=== PATIENT | female | born 1930 | race Caucasian/White ===

== ENCOUNTER → 2016-06-15 | Outpatient (CLI) | payer BC ==
[~2016-06-15] MED LIST: AMLO-110 PO; ASPI81TA28 PO; CMD1 PO; FRRS300 PO; FURO-85 PO; GEMF600T3 PO; GLC500 PO; INSDGI SC; LISI20TA PO; METO50TA7 PO; OXYC-57 PO; PRLSR20 PO; citracal PO; iron PO; vitamin d3 PO
[2016-06-15 10:50] LABS: HEMATOCRIT 26.1 % (37-47); MEAN CELL VOLUME 90.9 fL (80-100); MEAN CORPUSCULAR HEMOGLOBIN 30.3 pg (25-34); MEAN CORPUSCULAR HGB CONC 33.3 g/dl (32-36); MEAN PLATELET VOLUME 9.9 fL (7.4-10.4); PLATELET COUNT 269 K/uL (130-400); RED BLOOD COUNT 2.87 M/uL (4.2-5.4); WHITE BLOOD COUNT 7.08 K/uL (4.8-10.8)
[2016-06-15 11:14] LABS: URINE APPEARANCE CLEAR (CLEAR); URINE BILIRUBIN NEG (NEG); URINE COLOR YELLOW; URINE EPITHELIAL CELL AUTO >30 /lpf (0-5); URINE NITRITE NEG (NEG); URINE PH 5.5 (4.5-7.5); URINE SPECIFIC GRAVITY 1.016 (1.000-1.030); UROBILINOGEN NEG (NEG)
[2016-06-15 11:21] LABS: MANUAL MICROSCOPIC REQUIRED? NO; REVIEW REQ? YES
[2016-06-15 11:31] LABS: BLOOD UREA NITROGEN 47 mg/dl (7-18); BUN/CREATININE RATIO 19.7 (10-20); CARBON DIOXIDE 25 mmol/L (21-32); CHLORIDE 108 mmol/L (98-107); GLUCOSE 117 mg/dl (70-99); PHOSPHORUS 3.6 mg/dl (2.5-4.9); POTASSIUM 4.3 mmol/L (3.5-5.1); SODIUM 143 mmol/L (136-145)
[2016-06-15 11:40] LABS: URINE PROTIEN/CREAT RATIO 1.9 (0-0.2); URINE TOTAL PROTEIN 209.7 mg/dl (0-11.9)
== END | disposition home or self-care (01) ==
LOC: C.LAB1850 09:54
PROVIDERS: ATTEND Internal Medicine Nephrology
DX: I10 Essential (primary) hypertension (principal); R80.9 Proteinuria, unspecified; N18.4 Chronic kidney disease, stage 4 (severe); F64.9 Gender identity disorder, unspecified; N25.81 Secondary hyperparathyroidism of renal origin

== ENCOUNTER → 2016-07-16 | Outpatient (CLI) | payer BC ==
[2016-07-16 13:16] LABS: HEMATOCRIT 27.4 % (37-47); MEAN CELL VOLUME 88.4 fL (80-100); MEAN CORPUSCULAR HEMOGLOBIN 29.4 pg (25-34); MEAN CORPUSCULAR HGB CONC 33.2 g/dl (32-36); MEAN PLATELET VOLUME 9.7 fL (7.4-10.4); PLATELET COUNT 308 K/uL (130-400); WHITE BLOOD COUNT 5.81 K/uL (4.8-10.8)
[2016-07-16 14:08] LABS: FERRITIN 332.2 ng/ml (8.0-388.0)
--- NOTE | 2016-07-22 08:53 | CODING QUERY MEDICAL NECESSITY ---
SUPPORTING DIAGNOSIS NEEDED Dr. Worley, A supporting diagnosis is required for the test/procedure performed on this patient in order for us to be reimbursed by the patient's insurance. Please provide a supporting diagnosis for the following test/procedure listed below next to the test name along with your signature. *If there is no additional diagnosis for this patient that would support the following test/procedure please document that below next to the test/procedure. Test(s)/Procedure(s) that require a supporting diagnosis: * ([id number]) B12 VITAMIN LEVEL DIAGNOSIS: * ([id number]) FOLATE LEVEL DIAGNOSIS: DATE OF SERVICE: 07/16/16 Provider Signature: Date: Thank you Sal Hodges [facility] Information Management Once completed, please kindly fax back to [phone] For questions please call [phone]
== END | disposition home or self-care (01) ==
LOC: C.LAB1850 11:36
PROVIDERS: ATTEND Internal Medicine Nephrology
DX: I12.9 Hypertensive chronic kidney disease with stage 1 through stage 4 chronic kidney disease, or unspecified chronic kidney disease (principal); R80.9 Proteinuria, unspecified; N18.4 Chronic kidney disease, stage 4 (severe); D64.9 Anemia, unspecified; N25.81 Secondary hyperparathyroidism of renal origin

== ENCOUNTER → 2016-07-17 | Outpatient (CLI) | payer BC | END | disposition home or self-care (01) | LOC: C.LABSPEC 12:58 | PROVIDERS: ATTEND Internal Medicine Nephrology | DX: I12.9 Hypertensive chronic kidney disease with stage 1 through stage 4 chronic kidney disease, or unspecified chronic kidney disease (principal); R80.9 Proteinuria, unspecified; N18.4 Chronic kidney disease, stage 4 (severe); D64.9 Anemia, unspecified; N25.81 Secondary hyperparathyroidism of renal origin ==

== ENCOUNTER → 2016-07-30 | Outpatient (CLI) | payer BC ==
[2016-07-30 15:57] LABS: URINE APPEARANCE CLEAR (CLEAR); URINE BILIRUBIN NEG (NEG); URINE COLOR YELLOW; URINE EPITHELIAL CELL AUTO 20-30 /lpf (0-5); URINE NITRITE NEG (NEG); URINE PH 5.5 (4.5-7.5); URINE SPECIFIC GRAVITY 1.015 (1.000-1.030); UROBILINOGEN NEG (NEG)
[2016-07-30 16:02] LABS: MANUAL MICROSCOPIC REQUIRED? NO; REVIEW REQ? NO
== END | disposition home or self-care (01) ==
LOC: C.LAB1850 14:52
PROVIDERS: ATTEND Internal Medicine Nephrology
DX: N30.00 Acute cystitis without hematuria (principal)

== ENCOUNTER → 2016-10-29 | Outpatient (CLI) | payer BC ==
[2016-10-29 14:35] LABS: HEMATOCRIT 26.5 % (37-47); MEAN CORPUSCULAR HEMOGLOBIN 30.5 pg (25-34); MEAN CORPUSCULAR HGB CONC 32.5 g/dl (32-36); MEAN PLATELET VOLUME 9.9 fL (7.4-10.4); PLATELET COUNT 201 K/uL (130-400); RED BLOOD COUNT 2.82 M/uL (4.2-5.4); WHITE BLOOD COUNT 5.68 K/uL (4.8-10.8)
[2016-10-29 14:40] LABS: URINE APPEARANCE CLEAR (CLEAR); URINE BILIRUBIN NEG (NEG); URINE COLOR YELLOW; URINE EPITHELIAL CELL AUTO >30 /lpf (0-5); URINE NITRITE NEG (NEG); URINE PH 5.5 (4.5-7.5); UROBILINOGEN NEG (NEG); ZZUR CULT IF INDIC CLEAN CATCH YES
[2016-10-29 14:43] LABS: MANUAL MICROSCOPIC REQUIRED? NO; REVIEW REQ? YES
[2016-10-29 14:47] LABS: ALT/SGPT 19 U/L (12-78); AST/SGOT 16 U/L (15-37); BLOOD UREA NITROGEN 53 mg/dl (7-18); BUN/CREATININE RATIO 23.1 (10-20); CALCIUM 8.6 mg/dl (8.5-10.1); CARBON DIOXIDE 26 mmol/L (21-32); CHLORIDE 113 mmol/L (98-107); GLUCOSE 146 mg/dl (70-99); POTASSIUM 4.7 mmol/L (3.5-5.1); SODIUM 144 mmol/L (136-145)
[2016-10-29 14:50] LABS: ALB/GLOB RATIO 0.8 (0.9-2); ALKALINE PHOSPHATASE 95 U/L (45-117); FERRITIN 341.6 ng/ml (8.0-388.0); TOTAL IRON BINDING CAPACITY 208 mcg/dl (250-450)
[2016-10-29 14:54] LABS: URINE PROTIEN/CREAT RATIO 1.6 (0-0.2)
== END | disposition home or self-care (01) ==
LOC: C.LAB1850 12:33
PROVIDERS: ATTEND Internal Medicine Nephrology
DX: I12.9 Hypertensive chronic kidney disease with stage 1 through stage 4 chronic kidney disease, or unspecified chronic kidney disease (principal); N18.4 Chronic kidney disease, stage 4 (severe); R80.9 Proteinuria, unspecified; D64.9 Anemia, unspecified; N25.81 Secondary hyperparathyroidism of renal origin

== ENCOUNTER → 2017-01-22 | Outpatient (CLI) | payer BC ==
[2017-01-22 13:08] LABS: HEMATOCRIT 28.4 % (37-47); MEAN CELL VOLUME 91.9 fL (80-100); MEAN CORPUSCULAR HEMOGLOBIN 29.4 pg (25-34); MEAN PLATELET VOLUME 10.4 fL (7.4-10.4); PLATELET COUNT 216 K/uL (130-400); RED BLOOD COUNT 3.09 M/uL (4.2-5.4); WHITE BLOOD COUNT 5.85 K/uL (4.8-10.8)
[2017-01-22 13:34] LABS: BLOOD UREA NITROGEN 62 mg/dl (7-18); CALCIUM 8.7 mg/dl (8.5-10.1); CARBON DIOXIDE 28 mmol/L (21-32); CHLORIDE 107 mmol/L (98-107); GLUCOSE 145 mg/dl (70-99); POTASSIUM 4.4 mmol/L (3.5-5.1); SODIUM 141 mmol/L (136-145)
[2017-01-22 13:38] LABS: FERRITIN 333.1 ng/ml (8.0-388.0); PHOSPHORUS 4.3 mg/dl (2.5-4.9); TOTAL IRON BINDING CAPACITY 223 mcg/dl (250-450)
== END | disposition home or self-care (01) ==
LOC: C.LAB1850 12:02
PROVIDERS: ATTEND Internal Medicine Nephrology
DX: I12.9 Hypertensive chronic kidney disease with stage 1 through stage 4 chronic kidney disease, or unspecified chronic kidney disease (principal); R80.9 Proteinuria, unspecified; N18.4 Chronic kidney disease, stage 4 (severe); D64.9 Anemia, unspecified; N25.81 Secondary hyperparathyroidism of renal origin

== ENCOUNTER → 2017-04-30 | Outpatient (CLI) | payer BC ==
[2017-04-30 12:31] LABS: HEMATOCRIT 27.6 % (37-47); HEMOGLOBIN 9.2 g/dL (12.0-16.0); MEAN CELL VOLUME 91.4 fL (80-100); MEAN CORPUSCULAR HEMOGLOBIN 30.5 pg (25-34); MEAN CORPUSCULAR HGB CONC 33.3 g/dl (32-36); MEAN PLATELET VOLUME 10.3 fL (7.4-10.4); PLATELET COUNT 199 K/uL (130-400); RED CELL DISTRIBUTION WIDTH CV 14.1 % (11.5-14.5); RED CELL DISTRIBUTION WIDTH SD 46.5 fL (36.4-46.3); WHITE BLOOD COUNT 6.19 K/uL (4.8-10.8)
[2017-04-30 16:02] LABS: ALBUMIN 3.5 gm/dl (3.4-5.0); BLOOD UREA NITROGEN 79 mg/dl (7-18); CALCIUM 9.5 mg/dl (8.5-10.1); CARBON DIOXIDE 27 mmol/L (21-32); CREATININE 2.84 mg/dl (0.60-1.20); GLUCOSE 84 mg/dl (70-99); POTASSIUM 4.3 mmol/L (3.5-5.1); SODIUM 140 mmol/L (136-145)
[2017-04-30 16:08] LABS: PHOSPHORUS 4.5 mg/dl (2.5-4.9); TRANSFERRIN 181 mg/dl (200-360)
== END | disposition home or self-care (01) ==
LOC: C.LAB1850 11:03
PROVIDERS: ATTEND Internal Medicine Nephrology
DX: I10 Essential (primary) hypertension (principal); R80.9 Proteinuria, unspecified; N25.81 Secondary hyperparathyroidism of renal origin; D64.9 Anemia, unspecified

== ENCOUNTER → 2017-08-26 | Outpatient (CLI) | payer BC ==
[~2017-08-26] MED LIST changes: -METO50TA7 PO; +METO50TA8 PO
[2017-08-26 12:16] LABS: HEMOGLOBIN 9.1 g/dL (12.0-16.0); MEAN CELL VOLUME 92.1 fL (80-100); MEAN CORPUSCULAR HEMOGLOBIN 29.9 pg (25-34); MEAN CORPUSCULAR HGB CONC 32.5 g/dl (32-36); MEAN PLATELET VOLUME 9.6 fL (7.4-10.4); PLATELET COUNT 187 K/uL (130-400); RED CELL DISTRIBUTION WIDTH CV 13.8 % (11.5-14.5); RED CELL DISTRIBUTION WIDTH SD 45.9 fL (36.4-46.3); WHITE BLOOD COUNT 5.94 K/uL (4.8-10.8)
[2017-08-26 12:48] LABS: ALBUMIN 3.5 gm/dl (3.4-5.0); BLOOD UREA NITROGEN 53 mg/dl (7-18); CALCIUM 8.8 mg/dl (8.5-10.1); CARBON DIOXIDE 26 mmol/L (21-32); CREATININE 2.22 mg/dl (0.60-1.20); GLUCOSE 55 mg/dl (70-99); PHOSPHORUS 3.9 mg/dl (2.5-4.9); POTASSIUM 4.7 mmol/L (3.5-5.1); SODIUM 143 mmol/L (136-145); TRANSFERRIN 180 mg/dl (200-360)
== END | disposition home or self-care (01) ==
LOC: C.LAB1850 11:23
PROVIDERS: ATTEND Internal Medicine Nephrology
DX: I12.9 Hypertensive chronic kidney disease with stage 1 through stage 4 chronic kidney disease, or unspecified chronic kidney disease (principal); R80.9 Proteinuria, unspecified; N25.81 Secondary hyperparathyroidism of renal origin; D64.9 Anemia, unspecified; N18.4 Chronic kidney disease, stage 4 (severe)

== ENCOUNTER 2018-06-05 13:43 | Inpatient (IN) ==
[2018-06-05] MEDS ORDERED: MoRPHine SULFATE 4 MG/ML 1 ML CARP\\VIAL IV STA (14:52)
[2018-06-05] MEDS ORDERED: SODIUM CHLORIDE 0.9% 1000ML 1,000 ML IV SCH (15:00)
[2018-06-05 15:05] LABS: Hematocrit (blood only) 28.6 % (37-47); Hemoglobin 9.4 g/dL (12.0-16.0); Mean Corpuscular Hgb Conc 32.9 g/dL (32-36); Mean Corpuscular Volume 89.9 fL (80-100); Mean Platelet Volume 10.5 fL (7.4-10.4); Platelet Count 200 K/uL (130-400); RDW Coefficient of Variation 13.8 % (11.5-14.5); RDW Standard Deviation 45.3 fL (36.4-46.3); Red Blood Count 3.18 M/uL (4.2-5.4); White Blood Count 7.11 K/uL (4.8-10.8)
[2018-06-05 15:14] LABS: BUN Creatinine Ratio 30.3 (10-20); Creatinine Clr Calc Pharmacy 15.2 ml/min; Est GFR (African American) 18.8; Est GFR (Non-African American) 16.2; Potassium 4.2 mmol/L (3.5-5.1)
[2018-06-05 15:18] LABS: Partial Thromboplastin Ratio 0.9; Partial Thromboplastin Time 24.3 Seconds (21.0-31.0); Prothrombin Time 10.1 Seconds (9.0-12.0)
[2018-06-05 15:31] LABS: Basophils # (auto) 0.01 K/uL (0-0.2); Basophils % (auto) 0.1 %; Eosinophils # (auto) 0.15 K/uL (0-0.5); Eosinophils % (auto) 2.1 %; Immature Granulocytes # (auto) 0.04 K/uL (0.00-0.02); Immature Granulocytes % (auto) 0.6 %; Lymphocytes # (auto) 2.02 K/uL (1.2-3.4); Lymphocytes % (auto) 28.4 %; Monocytes # (auto) 0.29 K/uL (0.11-0.59); Monocytes % (auto) 4.1 %; Neutrophils % (auto) 64.7 %
[2018-06-05 15:33] LABS: Appearance Urine Clear (Clear); Bacteria Urine Automated Negative (Negative); Bilirubin Urine Negative (Negative); Blood Urine Trace (Negative); Cast Urine Automated 0 /lpf (0-5); Color Urine Yellow; Glucose Urine UA Negative (Negative); Ketones Urine Negative (Negative); Leukocyte Esterase Urine 1+ (Negative); Nitrite Urine Negative (Negative); Protein Urine 1+ (Negative); Urobilinogen Urine Negative (Negative)
--- NOTE | 2018-06-05 15:37 | XRay Report ---
XR hip RT 2-3V w pelvis CLINICAL HISTORY: 87 years-old Female presenting with s/p fall, right hip pain. TECHNIQUE: Single frontal view of the pelvis and frontal and crosstable lateral views of the right hi p were obtained. COMPARISON: None. FINDINGS: Degenerative changes of the lower lumbar spine. Sacroiliac joints, pubic symphysis, and hip joints co ngruent. Deformity of the intertrochanteric region of the right femur concerning for fracture. Crosst able lateral view best demonstrates cysts and also suggests underlying osseous lesion at this site. N o advanced degenerative change. Atherosclerosis. Osteopenia suspected. IMPRESSION: Intertrochanteric right femur fracture. May represent a pathologic fracture. Consider further evaluat ion with MRI of the right hip with contrast. Electronically signed by: Lamonte Roach M.D. 06/05/2018 3:36 PM
--- NOTE | 2018-06-05 15:49 | XRay Report ---
XR chest 1V portable CLINICAL HISTORY: 87 years-old Female presenting with s/p fall, pre op for likely hip frx. TECHNIQUE: Portable semiupright AP view of the chest was obtained. COMPARISON: . FINDINGS: Right subclavian pacer with leads to the right atrium and right ventricular apex. Atherosclerosis of aortic arch. Cardiac silhouette mildly enlarged. Coarsened lung markings. No focal opacity. No large effusion or pneumothorax. Degenerative changes of the thoracic spine. Severe degenerative changes of the left glenohumeral joint. Osteopenia suspected. Upper abdomen normal. IMPRESSION: 1. Cardiomegaly. No other convincing evidence of acute cardiopulmonary disease. 2. Osteopenia. Electronically signed by: Lamonte Roach M.D. 06/05/2018 3:48 PM
[2018-06-05] MEDS ORDERED: SOD PHOSPHATE/SOD BIPHOSPHATE ENEMA 132 ML BTL PR PRN (18:29)
[2018-06-05] MEDS ORDERED: BISACODYL 10 MG SUPP PR PRN (18:29)
[2018-06-05] MEDS ORDERED: ONDANSETRON INJ 2 MG/ML 2 ML VIAL IV PRN (18:29)
[2018-06-05] MEDS ORDERED: OXYCODONE HCL IR 5 MG TAB (IMMEDIATE RELEASE) PO PRN (18:29)
[2018-06-05] MEDS ORDERED: NALOXONE HCL 0.4 MG/1 ML VIAL/CARP IV PRN (18:29)
[2018-06-05] MEDS ORDERED: MAGNESIUM HYDROXIDE SUSP 30 ML UDC PO PRN (18:29)
[2018-06-05] MEDS ORDERED: MoRPHine SULFATE 4 MG/ML 1 ML CARP\\VIAL IV PRN (18:29)
--- NOTE | 2018-06-05 18:49 | History & Physical Report ---
Date of Service June 05, 2018 Assessment & Plan (1) Fracture of right hip: NPO after midnight geriatric hip fracture order set used consult Dr. Basilio for definitive treatment pain control with Oxycodone, Morphine (2) Fall: mechanical fall, no loss of consciousness PT/OT will be ordered after surgery (3) CKD (chronic kidney disease), stage IV: Cr at baseline of 2.[address] Worley electrolytes stable repeat BMP in the morning (4) Diabetes: cut dose of Lantus in half to 6 units in the morning Novolog SS (5) HTN (hypertension): continue Lopressor BID hold Norvasc and Lasix in the morning Hydralazine PRN for elevated pressures History of Present Illness Chief Complaint: I fell and broke my hip Primary Care Provider: Isaac Sharp MD 87 yo female with history of DM, CKD stage IV, pacemaker who presents to the ED after falling at home and suffering a right hip fracture. She says she was walking along a narrow sidewalk beside her house. She must have tripped and fell on her right side, but she cannot recall all the details of how she fell. She did not lose consciousness. She was down on the ground and had severe pain in right hip. No one was with her and she was calling out for help. She is unsure how long she was down on the ground. She was quite cold, only had a sweatshirt on because she was not planning on being outside for long. She was found by neighbors and EMS brought her to the ED. Labs showed normal CBC, CKD with Cr of 2.5, electrolytes stable, troponin negative. EKG was paced. CXR was normal. Right hip x-ray showed an intertrochanteric fracture on the right side. Ortho was contacted, they plan to fix the fracture tomorrow. Patient denies any chest pain or palpitations. She denies shortness of breath. Denies fever, chills, sweats, fatigue. She says she was feeling well prior to falling. Her only comlaints now are right hip pain and feeling cold from being outside for some time. Allergies Allergy/AdvReac Type Severity Reaction Status Date / Time latex AdvReac Mild Rash Verified 06/05/18 23:14 lovastatin AdvReac Mild "doesn't Verified 06/05/18 14:08 feel well" silicone AdvReac Mild Hives Verified 06/05/18 23:14 Home Medications Home Medications Medication Instructions Recorded Confirmed Type Vitamin C With Iron 1 tab PO DAILY 06/05/18 06/05/18 History amlodipine 5 mg PO QAM 06/05/18 06/05/18 History donepezil 5 mg PO HS 06/05/18 06/05/18 History furosemide [Lasix] 20 mg PO DAILY 06/05/18 06/05/18 History insulin glargine [Lantus U-100 12 unit SUBCUT QAM 06/05/18 06/05/18 History Insulin] metoprolol tartrate [Lopressor] 50 mg PO BID 06/05/18 06/05/18 History Past Med/Surg History Medical History Pacemaker (Chronic) CKD (chronic kidney disease) Dementia Diabetes H/O: hysterectomy Hypertension Surgical History H/O left knee surgery (Resolved) Family History Other No pertinent family history Social History Current Living Situation: Alone Other Information That Helps Us Care for You: No Feels Safe at Home: Yes Safety Concerns: Feels Safe At This Time Smoking Status: Never smoker Do You Dip or Chew Tobacco: No Hx Alcohol Use: No Hx Substance Use: No Beliefs That Will Affect Care: None Preferred Language: Belgian Communication Ability: Effective 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: No Review of Systems All systems reviewed & are unremarkable except as noted in HPI & below Constitutional: + fatigue and + weakness; no fever, no chills and no sweats Respiratory: no cough and no dyspnea Cardiovascular: no chest pain Genitourinary (Female): no dysuria and no difficulty urinating Musculoskeletal: + joint pain (severe right hip pain) and + limited range of motion (right hip joint); no back pain, no neck pain and no myalgia Physical Exam 2 Vital Signs (Past 24 Hours): Last Vital Signs Temp 36.5 C 06/05/18 13:49 Pulse 66 06/05/18 18:05 Resp 18 06/05/18 18:05 BP 191/60 H 06/05/18 18:05 Pulse Ox 98 06/05/18 18:05 Constitutional: WD/WN, vitals as above Eyes: PERRL, conjunctivae normal, anicteric sclerae ENMT: external ear and nose normal, oropharynx normal Neck: trachea midline, no thyromegaly Respiratory: normal respiratory effort, lungs clear to auscultation Cardiovascular: RRR, no murmur, no edema Vessels: normal peripheral pulses Extremities: normal capillary refill; no calf tenderness and no pedal edema Gastrointestinal (Abdomen): normal bowel sounds, soft, nontender, no hepatosplenomegaly Musculoskeletal: Head/Neck/Chest: normocephalic and head atraumatic Extremities: + limited ROM of extremities (right hip due to pain); + extremities abnormal to inspection (right leg short and externally rotated), no cyanosis and no clubbing Skin: no rashes, warm and dry Neurologic: patellar DTR's 2+ bilat, sensation intact and PERRL, EOMI, accommodation nl, no face palsy, no dysarthria Lymphatic: no cervical or axillary lymphadenopathy Results & Data Laboratory Results Laboratory Results - last 24 hr 06/05/18 06/05/18 06/05/18 14:00 14:00 14:00 WBC 7.11 RBC 3.18 L Hgb 9.4 L Hct 28.6 L MCV 89.9 MCH 29.6 MCHC 32.9 RDW Std Deviation 45.3 RDW Coeff of Kylah 13.8 Plt Count 200 MPV 10.5 H Immature Gran % (Auto) 0.6 Neut % (Auto) 64.7 Lymph % (Auto) 28.4 [place] % (Auto) 4.1 Eos % (Auto) 2.1 Baso % (Auto) 0.1 Immature Gran # (Auto) 0.04 H Neut # (Auto) 4.60 Lymph # (Auto) 2.02 [place] # (Auto) 0.29 Eos # (Auto) 0.15 Baso # (Auto) 0.01 PT 10.1 INR 1.0 APTT 24.3 PTT Ratio 0.9 Sodium 140 Potassium 4.2 Chloride 108 H Carbon Dioxide 24 Anion Gap 8.0 BUN 78 H Creatinine 2.56 H Est Cr Clr Drug Dosing 15.2 Est GFR ( Amer) 18.8 Est GFR (Non-Af Amer) 16.2 BUN/Creatinine Ratio 30.3 H Glucose 103 H POC Glucose Calcium 9.0 Urine Color Urine Appearance Urine pH Ur Specific [place] Urine Protein Urine Glucose (UA) Urine Ketones Urine Blood Urine Nitrite Urine Bilirubin Urine Urobilinogen Ur Leukocyte Esterase Urine WBC (Auto) Urine RBC (Auto) U Hyaline Cast (Auto) U Epithel Cells (Auto) Urine Bacteria (Auto) Blood Type Antibody Screen 06/05/18 06/05/18 06/05/18 14:00 15:32 19:05 WBC RBC Hgb Hct MCV MCH MCHC RDW Std Deviation RDW Coeff of Kylah Plt Count MPV Immature Gran % (Auto) Neut % (Auto) Lymph % (Auto) [place] % (Auto) Eos % (Auto) Baso % (Auto) Immature Gran # (Auto) Neut # (Auto) Lymph # (Auto) [place] # (Auto) Eos # (Auto) Baso # (Auto) PT INR APTT PTT Ratio Sodium Potassium Chloride Carbon Dioxide Anion Gap BUN Creatinine Est Cr Clr Drug Dosing Est GFR ( Amer) Est GFR (Non-Af Amer) BUN/Creatinine Ratio Glucose POC Glucose 138 H Calcium Urine Color Yellow Urine Appearance Clear Urine pH 6.0 Ur Specific [place] 1.010 Urine Protein 1+ H Urine Glucose (UA) Negative Urine Ketones Negative Urine Blood Trace H Urine Nitrite Negative Urine Bilirubin Negative Urine Urobilinogen Negative Ur Leukocyte Esterase 1+ H Urine WBC (Auto) 1-5 Urine RBC (Auto) 10-30 H U Hyaline Cast (Auto) 0 U Epithel Cells (Auto) 10-20 H Urine Bacteria (Auto) Negative Blood Type O Positive Antibody Screen NEGATIVE 06/05/18 20:39 WBC RBC Hgb Hct MCV MCH MCHC RDW Std Deviation RDW Coeff of Kylah Plt Count MPV Immature Gran % (Auto) Neut % (Auto) Lymph % (Auto) [place] % (Auto) Eos % (Auto) Baso % (Auto) Immature Gran # (Auto) Neut # (Auto) Lymph # (Auto) [place] # (Auto) Eos # (Auto) Baso # (Auto) PT INR APTT PTT Ratio Sodium Potassium Chloride Carbon Dioxide Anion Gap BUN Creatinine Est Cr Clr Drug Dosing Est GFR ( Amer) Est GFR (Non-Af Amer) BUN/Creatinine Ratio Glucose POC Glucose 150 H Calcium Urine Color Urine Appearance Urine pH Ur Specific [place] Urine Protein Urine Glucose (UA) Urine Ketones Urine Blood Urine Nitrite Urine Bilirubin Urine Urobilinogen Ur Leukocyte Esterase Urine WBC (Auto) Urine RBC (Auto) U Hyaline Cast (Auto) U Epithel Cells (Auto) Urine Bacteria (Auto) Blood Type Antibody Screen Diagnostic Findings Right hip x-ray: Intertrochanteric right femur fracture. May represent a pathologic fracture. Consider further evaluation with MRI of the right hip with contrast. Chest x-ray: IMPRESSION: 1. Cardiomegaly. No other convincing evidence of acute cardiopulmonary disease. 2. Osteopenia. Code Status & VTE Plan Code Status full code VTE Prophylaxis Plan VTE Prophylaxis will be ordered: Yes _ (1) Fracture of right hip Encounter type: initial encounter Fracture healing: Fracture type: closed Open fracture type: Qualified Code(s): S72.001A - Fracture of unspecified part of neck of right femur, initial encounter for closed fracture (2) Fall Encounter type: initial encounter Qualified Code(s): W19.XXXA - Unspecified fall, initial encounter
--- NOTE | 2018-06-05 19:22 | Emergency Department Note ---
Entered by Cristin Garza acting as a scribe for Jacky Contreras MD History of Present Illness General Chief complaint: Hip Pain Time Seen by Provider: 06/05/18 14:27 Source: patient History of Present Illness Onset (ago): hour(s) (this afternoon) Location: right (hip) Pain Consistency: + other (after falling from standing) Maximum Pain Intensity: 6 Quality: + other (right hip pain) Associated symptoms: + other (Negative hitting her head, neck pain, LOC, right shoulder pain, right arm pain, hx of seizures) Treatments prior to arrival: none The patient is a 87 year old white female w/ PMHx of a pacemaker who presents to the ED w/ CC of right hip pain after a fall beginning this afternoon. She reports she was walking on the sidewalk when she got too close to the edge and landed on her back and hurt her right hip. Pt denies hitting her head, neck pain , LOC, right shoulder pain, right arm pain, hx of seizures. She did not take any medications for pain prior to coming to the ED. Pt regularly takes baby aspirin. Home Medications Home Medications Medication Instructions Recorded Confirmed Type Vitamin C With Iron 1 tab PO DAILY 06/05/18 06/05/18 History amlodipine 5 mg PO QAM 06/05/18 06/05/18 History donepezil 5 mg PO HS 06/05/18 06/05/18 History furosemide [Lasix] 20 mg PO DAILY 06/05/18 06/05/18 History insulin glargine [Lantus U-100 12 unit SUBCUT QAM 06/05/18 06/05/18 History Insulin] metoprolol tartrate [Lopressor] 50 mg PO BID 06/05/18 06/05/18 History Allergies Allergy/AdvReac Type Severity Reaction Status Date / Time lovastatin AdvReac Mild "doesn't Verified 06/05/18 14:08 feel well" Past Med/Surg History Medical History Pacemaker (Chronic) CKD (chronic kidney disease) Dementia Diabetes Hypertension Surgical History H/O left knee surgery (Resolved) Family History Other No pertinent family history Social History Feels Safe at Home: Yes Smoking Status: Never smoker Preferred Language: Malagasy Review of Systems See HPI for pertinent positives & negatives. and A total of 10 systems reviewed and were otherwise negative Physical Exam Vital Signs Vital Signs - 24 hr 06/05/18 13:49 06/05/18 14:41 06/05/18 15:48 Temperature 36.5 C Temperature Source Oral Sepsis Recent Fever Within 48 Hours No Sepsis Action Taken by Nursing No Action Required Pulse Rate 63 Pulse Rate [Left] 65 68 Pulse Strength Normal Respiratory Rate 16 16 18 Respiratory Effort / Characteristics Non-Labored Non-Labored Spontaneous Respiratory Depth Normal Respiratory Pattern Regular Blood Pressure 216/83 H Blood Pressure [Right Arm] 192/82 H 174/62 H Blood Pressure Mean 127 Blood Pressure Mean [Right Arm] 118 99 Blood Pressure Position Lying Blood Pressure Position [Right Arm] Lying Pulse Oximetry 99 96 97 Oxygen Delivery Method Room Air Room Air Room Air 06/05/18 17:14 06/05/18 18:05 Temperature Temperature Source Sepsis Recent Fever Within 48 Hours Sepsis Action Taken by Nursing Pulse Rate Pulse Rate [Left] 65 66 Pulse Strength Respiratory Rate 18 18 Respiratory Effort / Characteristics Respiratory Depth Respiratory Pattern Blood Pressure Blood Pressure [Right Arm] 190/76 H 191/60 H Blood Pressure Mean Blood Pressure Mean [Right Arm] 114 103 Blood Pressure Position Blood Pressure Position [Right Arm] Pulse Oximetry 99 98 Oxygen Delivery Method Room Air Room Air GENERAL: Well appearing, well nourished, NAD, non-toxic. Wearing glasses. HEAD: No obvious deformity or pain. EYE EXAM: Normal conjunctiva. PERRL, no anisocoria and EOM's grossly intact w/o pain OROPHARYNX: Moist MM. NECK: Supple, no nuchal rigidity, no adenopathy, non-tender. No signs of meningismus. No midline C spine TTP. LUNGS: Clear to auscultation. Normal chest wall mechanics. HEART: NSR, no MRG CHEST: No chest wall TTP. ABDOMEN: Abdomen soft, non-tender, normo-active bowel sounds, no masses, no rebound or guarding. BACK: No CVA TTP SKIN: No rashes and no bruising. UPPER EXTREMITIES: Upper extremities are grossly normal. No TTP. LOWER EXTREMITIES: No pitting edema. No calf pain. RLE appears shortened and externally rotated. Pain over right hip. RLE has SILT and well perfused, can move ankle and toes w/o issue. LLE w/ well healed incisional scar over L knee. NEURO EXAM: Alert and follows commands, decreased RLE movement at hip 2/2 to pain. Moves b/l UEs and LLE w/o issue. Speech clear. Course 1437: Past medical records reviewed. The patient was evaluated in room A3, and a complete history and physical examination were performed. 1625: I reviewed the patient's case with Christie Medrano. He recommends the patient be further evaluated. 1638: I reviewed the patient's case with Edel Mahoney Hospitalist. He will evaluate the patient for further management. Consultations Consultation #1: I reviewed the patient's case with Christie Medrano. He recommends the patient be further evaluated. Time: 16:25 Consultation #2: I reviewed the patient's case with Edel Mahoney [facility]ist. He will evaluate the patient for further management. Time: 16:28 Administered Medications Sodium Chloride (Nss 1000ml) 1,000 mls @ 75 mls/hr IV .[id number] BRUCE Stop: 06/06/18 04:19 Last Infusion: 06/05/18 18:08 Dose: Admin: 06/05/18 15:07 Dose: 75 mls/hr Discontinued Medications Morphine Sulfate (Morphine Sulfate) 4 mg IV NOW STA Stop: 06/05/18 14:53 Last Admin: 06/05/18 15:07 Dose: 4 mg Medical Decision Making Medical Records Attestation: I reviewed the patient's medical records. Home Medications Current Medication List: was personally reviewed by me Laboratory Data Attestation: I reviewed the patient's lab results. Result diagrams: 06/05/18 14:00 06/05/18 14:00 Lab Results 06/05/18 06/05/18 06/05/18 Range/Units 14:00 14:00 14:00 WBC 7.11 (4.8-10.8) K/uL RBC 3.18 L (4.2-5.4) M/uL Hgb 9.4 L (12.0-16.0) g/dL Hct 28.6 L (37-47) % MCV 89.9 (80-100) fL MCH 29.6 (25-34) pg MCHC 32.9 (32-36) g/dL RDW Std Deviation 45.3 (36.4-46.3) fL RDW Coeff of [place] 13.8 (11.5-14.5) % Plt Count 200 (130-400) K/uL MPV 10.5 H (7.4-10.4) fL Immature Gran % (Auto) 0.6 % Neut % (Auto) 64.7 % Lymph % (Auto) 28.4 % [place] % (Auto) 4.1 % Eos % (Auto) 2.1 % Baso % (Auto) 0.1 % Immature Gran # (Auto) 0.04 H (0.00-0.02) K/uL Neut # (Auto) 4.60 (1.4-6.5) K/uL Lymph # (Auto) 2.02 (1.2-3.4) K/uL [place] # (Auto) 0.29 (0.11-0.59) K/uL Eos # (Auto) 0.15 (0-0.5) K/uL Baso # (Auto) 0.01 (0-0.2) K/uL PT 10.1 (9.0-12.0) Seconds INR 1.0 (0.9-1.1) APTT 24.3 (21.0-31.0) Seconds PTT Ratio 0.9 Sodium 140 (136-145) mmol/L Potassium 4.2 (3.5-5.1) mmol/L Chloride 108 H (98-107) mmol/L Carbon Dioxide 24 (21-32) mmol/L Anion Gap 8.0 (3-11) BUN 78 H (7-18) mg/dl Creatinine 2.56 H (0.6-1.2) mg/dl Est Cr Clr Drug Dosing 15.2 ml/min Est GFR ( Amer) 18.8 Est GFR (Non-Af Amer) 16.2 BUN/Creatinine Ratio 30.3 H (10-20) Glucose 103 H (70-99) mg/dl Calcium 9.0 (8.5-10.1) mg/dl Urine Color Urine Appearance (Clear) Urine pH (4.5-7.5) Ur Specific [place] (1.000-1.030) Urine Protein (Negative) Urine Glucose (UA) (Negative) Urine Ketones (Negative) Urine Blood (Negative) Urine Nitrite (Negative) Urine Bilirubin (Negative) Urine Urobilinogen (Negative) Ur Leukocyte Esterase (Negative) Urine WBC (Auto) (0-5) /hpf Urine RBC (Auto) (0-4) /hpf U Hyaline Cast (Auto) (0-5) /lpf U Epithel Cells (Auto) (0-5) /lpf Urine Bacteria (Auto) (Negative) Blood Type Antibody Screen 06/05/18 06/05/18 Range/Units 14:00 15:32 WBC (4.8-10.8) K/uL RBC (4.2-5.4) M/uL Hgb (12.0-16.0) g/dL Hct (37-47) % MCV (80-100) fL MCH (25-34) pg MCHC (32-36) g/dL RDW Std Deviation (36.4-46.3) fL RDW Coeff of [place] (11.5-14.5) % Plt Count (130-400) K/uL MPV (7.4-10.4) fL Immature Gran % (Auto) % Neut % (Auto) % Lymph % (Auto) % [place] % (Auto) % Eos % (Auto) % Baso % (Auto) % Immature Gran # (Auto) (0.00-0.02) K/uL Neut # (Auto) (1.4-6.5) K/uL Lymph # (Auto) (1.2-3.4) K/uL [place] # (Auto) (0.11-0.59) K/uL Eos # (Auto) (0-0.5) K/uL Baso # (Auto) (0-0.2) K/uL PT (9.0-12.0) Seconds INR (0.9-1.1) APTT (21.0-31.0) Seconds PTT Ratio Sodium (136-145) mmol/L Potassium (3.5-5.1) mmol/L Chloride (98-107) mmol/L Carbon Dioxide (21-32) mmol/L Anion Gap (3-11) BUN (7-18) mg/dl Creatinine (0.6-1.2) mg/dl Est Cr Clr Drug Dosing ml/min Est GFR ( Amer) Est GFR (Non-Af Amer) BUN/Creatinine Ratio (10-20) Glucose (70-99) mg/dl Calcium (8.5-10.1) mg/dl Urine Color Yellow Urine Appearance Clear (Clear) Urine pH 6.0 (4.5-7.5) Ur Specific [place] 1.010 (1.000-1.030) Urine Protein 1+ H (Negative) Urine Glucose (UA) Negative (Negative) Urine Ketones Negative (Negative) Urine Blood Trace H (Negative) Urine Nitrite Negative (Negative) Urine Bilirubin Negative (Negative) Urine Urobilinogen Negative (Negative) Ur Leukocyte Esterase 1+ H (Negative) Urine WBC (Auto) 1-5 (0-5) /hpf Urine RBC (Auto) 10-30 H (0-4) /hpf U Hyaline Cast (Auto) 0 (0-5) /lpf U Epithel Cells (Auto) 10-20 H (0-5) /lpf Urine Bacteria (Auto) Negative (Negative) Blood Type O Positive Antibody Screen NEGATIVE Imaging Data Radiologist's Impression: Radiology results as stated below per my review and the radiologist's interpretation: XR chest 1V portable CLINICAL HISTORY: 87 years-old Female presenting with s/p fall, pre op for likely hip frx. TECHNIQUE: Portable semiupright AP view of the chest was obtained. COMPARISON: . FINDINGS: Right subclavian pacer with leads to the right atrium and right ventricular apex. Atherosclerosis of aortic arch. Cardiac silhouette mildly enlarged. Coarsened lung markings. No focal opacity. No large effusion or pneumothorax. Degenerative changes of the thoracic spine. Severe degenerative changes of the left glenohumeral joint. Osteopenia suspected. Upper abdomen normal. IMPRESSION: 1. Cardiomegaly. No other convincing evidence of acute cardiopulmonary disease. 2. Osteopenia. Electronically signed by: Lamonte Roach M.D. 06/05/2018 3:48 PM XR hip RT 2-3V w pelvis CLINICAL HISTORY: 87 years-old Female presenting with s/p fall, right hip pain. TECHNIQUE: Single frontal view of the pelvis and frontal and crosstable lateral views of the right hip were obtained. COMPARISON: None. FINDINGS: Degenerative changes of the lower lumbar spine. Sacroiliac joints, pubic symphysis, and hip joints congruent. Deformity of the intertrochanteric region of the right femur concerning for fracture. Crosstable lateral view best demonstrates cysts and also suggests underlying osseous lesion at this site. No advanced degenerative change. Atherosclerosis. Osteopenia suspected. IMPRESSION: Intertrochanteric right femur fracture. May represent a pathologic fracture. Consider further evaluation with MRI of the right hip with contrast. Electronically signed by: Lamonte Roach M.D. 06/05/2018 3:36 PM ECG Data Attestation: I personally reviewed and interpreted this ECG as follows: Indication: other (right hip pain) Rate (beats per minute): ventricular rate, 60 Rhythm: other (AV dual paced rhythm) Findings: + LBBB and + T-wave inversion (anterior) Blood Pressure Blood Pressure Findings: Elevated blood pressure Blood Pressure Disposition: further management by hospitalist [facility] Narrative Prior records/ancillary studies reviewed. Triage nursing notes reviewed. The patient is a 87 year old white female w/ PMHx of a pacemaker who presents to the ED w/ CC of right hip pain after a fall beginning this afternoon. Differential diagnoses include but are not limited to: fracture, dislocation, contusion, strain, ligamentous injury, tendon rupture, and septic joint. Patient was seen and evaluated the bedside. The patient does have a known history of CKD as well as hypertension and diabetes. Patient also does have a history of dementia. The patient did suffer from a mechanical fall earlier today. Patient does have a right lower extremity that does appear shortened. The patient does have some right-sided hip pain. There is no evidence of laceration. This does appear to be a closed injury. Patient did a blood work completed along with hip films. The patient does have a right intertrochanteric fracture. I did discuss the results with the on-call orthopedist. The patient was subsequently discussed with the medicine service. The patient was to be admitted to the medicine service. I did discuss the results with the patient and the patient's family. The patient was admitted to the medicine service. Impression & Plan Fracture of right hip, Fall, CKD (chronic kidney disease), stage IV Discharge Plan Visit Data *Final* Discharge Date/Time: 06/05/18 18:00 Chief Complaint: Hip Pain ED Provider: Jacky Contreras Discharge Problem: Fracture of right hip, Fall, CKD (chronic kidney disease), stage IV Patient Disposition: Admitted As Inpatient Discharge Instructions Interventions: ED Discharge Assessment Last Done: 06/05/18 18:00 The scribe's documentation has been prepared under my direction and personally reviewed by me in its entirety. I confirm that the note above accurately reflects all work, treatment, procedures, and medical decision making performed by me.
[2018-06-05] MEDS: LACTATED RINGER'S 1,000 ML IV SCH (20:55)
[2018-06-05] MEDS: METOPROLOL TARTRATE 50 MG TAB PO SCH (20:58)
[2018-06-05] MEDS: DONEPEZIL HCL 5 MG TAB PO SCH (20:58)
[2018-06-05] MEDS: DOCUSATE SODIUM/SENNA 50/8.6MG TAB PO SCH (20:59)
--- NOTE | 2018-06-05 21:58 | Anesthesiology Consultation ---
Date of Service June 05, 2018 Assessment & Plan (1) Encounter for pre-operative examination: Chart Review Chart Review: Pending: Refer to Additional Notes / Consult section and Patient NOT seen in Pre Admission Testing Patient has diagnosis of dementia but was able to answer questions regarding her medical history. She was alert and oriented to person, place and time. She understands she has a broken right hip and that it is to be repaired tomorrow by orthopedics. I felt it was appropriate to have patient sign for her own consent. GETA vs SAB with MAC was discussed and questions were answerd. RN was present for anesthesia discussion. Patient's family members will be present tomorrow for surgery. Patient was unsure why she had her pacemaker placed. Of note, on physical exam I auscultated what appeared to be a systolic ejection murmur. Patient does deny any recent chest pains/pressures/SOB/syncope or lightheadedness. She was ambulatory prior to the mechanical fall on an icy sidewalk. Currently awaiting a call back from the attending hospitalist, Dr. Sharp, to suggest cardiology involvement for information regarding last pacemaker interrogation and possible echo if one was not done recently to see if she has any valvular heart disease to correspond with murmur heard. Patient is not on a blood thinner (per her report) so would be a candidate for SAB if she does not have significant valvular disease. Patient had all questions answered prior to leaving her room. Consults Requested cardiac History Height/Weight Height: 5 ft 2 in Weight: 62.1 kg Allergies Allergy/AdvReac Type Severity Reaction Status Date / Time lovastatin AdvReac Mild "doesn't Verified 06/05/18 14:08 feel well" Medications Home Medications Medication Instructions Recorded Confirmed Last Taken Vitamin C With Iron 1 tab PO DAILY 06/05/18 06/05/18 Unknown amlodipine 5 mg PO QAM 06/05/18 06/05/18 Unknown donepezil 5 mg PO HS 06/05/18 06/05/18 Unknown furosemide [Lasix] 20 mg PO DAILY 06/05/18 06/05/18 Unknown insulin glargine [Lantus U-100 12 unit SUBCUT QAM 06/05/18 06/05/18 Unknown Insulin] metoprolol tartrate [Lopressor] 50 mg PO BID 06/05/18 06/05/18 Unknown Active Medications Generic Name Dose Route Start Last Admin Trade Name Freq PRN Reason Stop Dose Admin Donepezil HCl 5 mg 06/05/18 21:00 06/05/18 20:58 Aricept PO 07/05/18 20:59 5 mg HS BRUCE Administration Sodium Chloride 1,000 mls @ 75 mls/hr 06/05/18 15:00 06/05/18 18:08 Nss 1000ml IV 06/06/18 04:19 75 mls/hr .[id number] BRUCE Infusion Lactated Ringer's 1,000 mls @ 80 mls/hr 06/05/18 18:29 06/05/18 20:55 Lr IV 07/05/18 18:28 80 mls/hr .[id number] BRUCE Administration Metoprolol Tartrate 50 mg 06/05/18 21:00 06/05/18 20:58 Lopressor PO 07/05/18 20:59 50 mg BID BRUCE Administration Senna/Docusate Sodium 2 tab 06/05/18 21:00 06/05/18 20:59 Senokot S PO 07/05/18 20:59 2 tab HS BRUCE Administration Past Medical History Medical History Pacemaker (Chronic) CKD (chronic kidney disease) Dementia Diabetes H/O: hysterectomy Hypertension Past Family History Family History Other No pertinent family history Past Surgical History Surgical History H/O left knee surgery (Resolved) Past Anesthesia History No Hx of Anesthesia Complications and No Family Hx of Anesthesia Complications History of PONV No Motion Sickness Screening History of Motion Sickness: No Social History Smoking Status: Never smoker Do You Dip or Chew Tobacco: No Hx Alcohol Use: No Hx Substance Use: No Exercise / Class Metabolic Activity II 4-5 Yardwork/Stairs/Walk up hill (prior to injury. ) Physical Exam Vital Signs Last Vital Signs Temp 37.3 C 06/05/18 19:08 Pulse 72 06/05/18 21:48 Resp 18 06/05/18 19:08 BP 160/56 H 06/05/18 21:48 Pulse Ox 95 06/05/18 19:08 ENMT Mouth: + dentures Thyromental Distance: < 3.5 Finger Breadths Mallampati Class: II Neck normal visual inspection and + shortened thyromental distance Respiratory normal respiratory effort Cardiovascular Rate/Rhythm: regular rate and regular rhythm Heart Sounds: + murmur (ESCOBAR heart at right and left USB. ) Musculoskeletal Spine: + limited cervical ROM; no pain with cervical ROM Testing Electrocardiogram Date: 06/05/18 HR 60 Poor data quality, interpretation may be adversely affected AV dual-paced rhythm Abnormal ECG When compared with ECG of 28-SEP-2007 09:34, Electronic ventricular pacemaker has replaced Sinus rhythm Chest X-Ray Date: 06/05/18 Right subclavian pacer with leads to the right atrium and right ventricular apex. Atherosclerosis of aortic arch. Cardiac silhouette mildly enlarged. Coarsened lung markings. No focal opacity. No large effusion or pneumothorax. Degenerative changes of the thoracic spine. Severe degenerative changes of the left glenohumeral joint. Osteopenia suspected. Upper abdomen normal. IMPRESSION: 1. Cardiomegaly. No other convincing evidence of acute cardiopulmonary disease. 2. Osteopenia. Laboratory Results 06/05/18 14:00 06/05/18 14:00 Blood Type O Positive 06/05/18 15:32 Antibody Screen NEGATIVE 06/05/18 15:32 PT 10.1 Seconds (9.0-12.0) 06/05/18 14:00 INR 1.0 (0.9-1.1) 06/05/18 14:00 APTT 24.3 Seconds (21.0-31.0) 06/05/18 14:00 Urine Color Yellow 06/05/18 14:00 Urine Appearance Clear (Clear) 06/05/18 14:00 Urine pH 6.0 (4.5-7.5) 06/05/18 14:00 Ur Specific [place] 1.010 (1.000-1.030) 06/05/18 14:00 Urine Protein 1+ (Negative) H 06/05/18 14:00 Urine Glucose (UA) Negative (Negative) 06/05/18 14:00 Urine Ketones Negative (Negative) 06/05/18 14:00 Urine Nitrite Negative (Negative) 06/05/18 14:00 Ur Leukocyte Esterase 1+ (Negative) H 06/05/18 14:00 Urine WBC (Auto) 1-5 /hpf (0-5) 06/05/18 14:00 Urine RBC (Auto) 10-30 /hpf (0-4) H 06/05/18 14:00 U Hyaline Cast (Auto) 0 /lpf (0-5) 06/05/18 14:00 U Epithel Cells (Auto) 10-20 /lpf (0-5) H 06/05/18 14:00 Urine Bacteria (Auto) Negative (Negative) 06/05/18 14:00 06/05/18 06/05/18 20:39 19:05 POC Glucose 150 H 138 H
[2018-06-06] MEDS ORDERED: CEFAZOLIN 2000MG 2,000 MG/15 ML SYR IV SCH (06:00)
[2018-06-06 07:15] LABS: Basophils # (auto) 0.01 K/uL (0-0.2); Basophils % (auto) 0.1 %; Eosinophils # (auto) 0.01 K/uL (0-0.5); Eosinophils % (auto) 0.1 %; Hematocrit (blood only) 23.6 % (37-47); Hemoglobin 7.9 g/dL (12.0-16.0); Immature Granulocytes # (auto) 0.02 K/uL (0.00-0.02); Immature Granulocytes % (auto) 0.3 %; Lymphocytes # (auto) 1.37 K/uL (1.2-3.4); Lymphocytes % (auto) 18.9 %; Mean Corpuscular Hgb Conc 33.5 g/dL (32-36); Mean Corpuscular Volume 91.5 fL (80-100); Mean Platelet Volume 9.8 fL (7.4-10.4); Monocytes # (auto) 0.64 K/uL (0.11-0.59); Monocytes % (auto) 8.8 %; Neutrophils # (auto) 5.19 K/uL (1.4-6.5); Neutrophils % (auto) 71.8 %; Platelet Count 157 K/uL (130-400); RDW Coefficient of Variation 13.7 % (11.5-14.5); RDW Standard Deviation 45.5 fL (36.4-46.3); Red Blood Count 2.58 M/uL (4.2-5.4); White Blood Count 7.24 K/uL (4.8-10.8)
[2018-06-06 07:48] LABS: BUN Creatinine Ratio 32.9 (10-20); Calcium 8.7 mg/dl (8.5-10.1); Creatinine Clr Calc Pharmacy 14.8 ml/min; Est GFR (African American) 21.2; Est GFR (Non-African American) 18.3
[2018-06-06 07:50] LABS: RBC Morphology Unremarkable
[2018-06-06] MEDS ORDERED: LANTUS PER UNIT CHARGE SQ SCH (09:00)
[2018-06-06] MEDS ORDERED: SODIUM CHLORIDE 0.9% 250 ML IV PRN ×2 (09:18→14:43)
[2018-06-06] MEDS: METOPROLOL TARTRATE 50 MG TAB PO SCH ×2 (09:53→20:42)
[2018-06-06] MEDS: LACTATED RINGER'S 1,000 ML IV SCH ×2 (09:53→23:40)
[2018-06-06] MEDS: INSULIN GLARGINE SOLOSTAR 100 UNITS/ML 3 ML PEN SQ SCH (10:18)
[2018-06-06] MEDS: HydrALAZINE HCL 20 MG/ML VIAL IV PRN (10:20)
--- NOTE | 2018-06-06 13:00 | XRay Report ---
XR femur RT 2V routine CLINICAL HISTORY: hip fracture, bone lesion COMPARISON: 06/05/2018 DISCUSSION: There is an intertrochanteric right hip fracture with varus angulation. There is no dislo cation. There are osteophytic changes present at the knee. There are vascular calcifications present. Is difficult to exclude a pathologic lesion (as was previously queried) at the site of fracture, but the appearance may simply be secondary to a fractured osteoporotic bone. Remainder the femoral shaft reveals no suspicious lytic lesions. IMPRESSION: Intertrochanteric right hip fracture with resultant varus angulation Electronically signed by: Sha Marshall M.D. 06/06/2018 12:59 PM
--- NOTE | 2018-06-06 14:36 | Orthopedic Consultation ---
Date of Consultation June 06, 2018 Assessment & Plan (1) Fracture of right hip: Spoke with the patient and the family at length today. There were a lot of family members present at the bedside today. Patient is going to have a long -leg x-ray of her right femur and an MRI of her right femur for questionable pathological concerns. The plan is to have surgery tomorrow with 1 of my associates the plan will be to do an IM rodding of the right hip. The surgery was explained to the patient in detail. And patient will need to sign a consent tomorrow morning as we cannot find paperwork to do the consent. Patient and family understand and despite the potential complications want to proceed with surgery. History of Present Illness Reason for Consultation: Right hip pain Attending Physician: Amandeep Sharp, History of Present Illness Pleasant female who unfortunately taken a fall and sustained a right intertrochanteric hip fracture. Patient actually is in fairly good condition not having much pain pain well controlled and sitting in bed comfortably. Patient has a history of diabetes, no history of DVTs, no artery vein problems in the past no history of cancer does have a history of heart disease with a pacemaker in place Allergies Allergy/AdvReac Type Severity Reaction Status Date / Time latex Allergy Mild Rash Verified 06/06/18 10:22 lovastatin AdvReac Mild "doesn't Verified 06/05/18 14:08 feel well" silicone AdvReac Mild Hives Verified 06/05/18 23:14 Home Medications Home Medications Medication Instructions Recorded Confirmed Type Vitamin C With Iron 1 tab PO DAILY 06/05/18 06/05/18 History amlodipine 5 mg PO QAM 06/05/18 06/05/18 History donepezil 5 mg PO HS 06/05/18 06/05/18 History furosemide [Lasix] 20 mg PO DAILY 06/05/18 06/05/18 History insulin glargine [Lantus U-100 12 unit SUBCUT QAM 06/05/18 06/05/18 History Insulin] metoprolol tartrate [Lopressor] 50 mg PO BID 06/05/18 06/05/18 History Patient History Medical History Pacemaker (Chronic) CKD (chronic kidney disease) Dementia Diabetes H/O: hysterectomy Hypertension Surgical History H/O left knee surgery (Resolved) Family History Other No pertinent family history Social History Current Living Situation: Alone Other Information That Helps Us Care for You: No Feels Safe at Home: Yes Safety Concerns: Feels Safe At This Time Smoking Status: Never smoker Do You Dip or Chew Tobacco: No Hx Alcohol Use: No Hx Substance Use: No Beliefs That Will Affect Care: None Communication Ability: Effective Review of Systems Constitutional: as per Subjective / HPI Physical Exam 2 Vital Signs (Past 24 Hours): Last Vital Signs Temp 37.9 C H 06/06/18 11:28 Pulse 84 06/06/18 11:28 Resp 14 06/06/18 11:28 BP 182/66 H 06/06/18 11:28 Pulse Ox 93 06/06/18 11:28 Constitutional: WD/WN, vitals as above Respiratory: normal respiratory effort, lungs clear to auscultation Cardiovascular: RRR, no murmur, no edema Gastrointestinal (Abdomen): normal bowel sounds, soft, nontender, no hepatosplenomegaly Musculoskeletal: Hip: + limited ROM of hip, + hip ROM with crepitation and + log roll test positive _ (1) Fracture of right hip Encounter type: initial encounter Fracture healing: Fracture type: closed Open fracture type: Qualified Code(s): S72.001A - Fracture of unspecified part of neck of right femur, initial encounter for closed fracture
[2018-06-06] MEDS: HEPARIN SOD 5,000 UNIT/0.5 ML VIAL SQ SCH ×2 (14:40→22:10)
[2018-06-06] MEDS: AMLODIPINE BESYLATE 5 MG TAB PO SCH (14:45)
[2018-06-06] MEDS ORDERED: ACETAMINOPHEN 325 MG TAB PO SCH (15:00)
[2018-06-06] MEDS ORDERED: DiphenhydrAMINE HCL 50 MG/ML VIAL IV SCH (15:00)
--- NOTE | 2018-06-06 17:16 | Hospitalist Progress Note ---
Date of Service June 06, 2018 Assessment & Plan (1) Fracture of right hip: NPO after midnight geriatric hip fracture order set used pain control with Oxycodone, Morphine plan for surgical repair tomorrow with Dr. De La Cruz (2) Fall: mechanical fall, no loss of consciousness PT/OT will be ordered after surgery (3) CKD (chronic kidney disease), stage IV: Cr at baseline of 2.5 on admission, improved slightly to 2.3 with fluids follows with Dr. Worley electrolytes stable repeat BMP in the morning (4) Diabetes: cut dose of Lantus in half to 6 units in the morning Novolog SS (5) HTN (hypertension): continue Lopressor BID resume Norvasc today due to elevated pressures Hydralazine PRN for elevated pressures (6) Anemia: Hb down to 7.9 from 9, no signs of blood loss could be dilutional from fluids ortho would like to transfuse 2 units prior to surgery Lasix in between units repeat H/H tomorrow (7) Adnexal cyst: incidental finding on CT hip get pelvic US as outpatient Subjective patient feels better today, more energy, less pain still has right hip pain when moving surgery delayed due to orthopedics wanting MRI of the hip due to possible malignant lesion however, patient has pacer, cannot get MRI CT hip shows the fracture, incidentally shows cystic lesion in right adnexa, pelvic US recommended labs show slight drop in Hb to 7.9 from 9 on admission Cr improved to 2.3 today, making adequate urine family updated at the bedside discussed with ortho, plan for OR tomorrow, will try to transfuse 2 units PRBC Review of Systems All systems reviewed & are unremarkable except as noted in HPI & below Musculoskeletal: + joint pain (right hip) Physical Exam 2 Vital Signs (Past 24 Hours): Last Vital Signs Temp 37.1 C 06/06/18 15:43 Pulse 75 06/06/18 15:43 Resp 16 06/06/18 15:43 BP 177/62 H 06/06/18 15:43 Pulse Ox 96 06/06/18 15:43 Constitutional: WD/WN, vitals as above Eyes: PERRL, conjunctivae normal, anicteric sclerae ENMT: external ear and nose normal, oropharynx normal Neck: trachea midline, no thyromegaly Respiratory: normal respiratory effort, lungs clear to auscultation Cardiovascular: RRR, no murmur, no edema Vessels: normal peripheral pulses Extremities: normal capillary refill; no calf tenderness and no pedal edema Gastrointestinal (Abdomen): normal bowel sounds, soft, nontender, no hepatosplenomegaly Musculoskeletal: Head/Neck/Chest: normocephalic and head atraumatic Extremities: + limited ROM of extremities (right hip due to pain); + extremities abnormal to inspection (right leg short and externally rotated), no cyanosis and no clubbing Skin: no rashes, warm and dry Neurologic: patellar DTR's 2+ bilat, sensation intact and PERRL, EOMI, accommodation nl, no face palsy, no dysarthria Lymphatic: no cervical or axillary lymphadenopathy Results & Data Laboratory Results Laboratory Results - last 24 hr 06/05/18 06/06/18 06/06/18 15:32 05:33 06:54 WBC 7.24 RBC 2.58 L Hgb 7.9 L Hct 23.6 L MCV 91.5 MCH 30.6 MCHC 33.5 RDW Std Deviation 45.5 RDW Coeff of Kyl[place] 13.7 Plt Count 157 MPV 9.8 Immature Gran % (Auto) 0.3 Neut % (Auto) 71.8 Lymph % (Auto) 18.9 [place] % (Auto) 8.8 Eos % (Auto) 0.1 Baso % (Auto) 0.1 Immature Gran # (Auto) 0.02 Neut # (Auto) 5.19 Lymph # (Auto) 1.37 [place] # (Auto) 0.64 H Eos # (Auto) 0.01 Baso # (Auto) 0.01 RBC Morphology Unremarkable Sodium Potassium Chloride Carbon Dioxide Anion Gap BUN Creatinine Est Cr Clr Drug Dosing Est GFR ( Amer) Est GFR (Non-Af Amer) BUN/Creatinine Ratio Glucose POC Glucose 112 H Calcium Blood Type O Positive Antibody Screen NEGATIVE Crossmatch See Detail 06/06/18 06/06/18 06/06/18 06:54 12:10 17:13 WBC RBC Hgb Hct MCV MCH MCHC RDW Std Deviation RDW Coeff of [place] Plt Count MPV Immature Gran % (Auto) Neut % (Auto) Lymph % (Auto) [place] % (Auto) Eos % (Auto) Baso % (Auto) Immature Gran # (Auto) Neut # (Auto) Lymph # (Auto) [place] # (Auto) Eos # (Auto) Baso # (Auto) RBC Morphology Sodium 143 Potassium 4.0 Chloride 109 H Carbon Dioxide 26 Anion Gap 8.0 BUN 76 H Creatinine 2.32 H Est Cr Clr Drug Dosing 14.8 Est GFR ( Amer) 21.2 Est GFR (Non-Af Amer) 18.3 BUN/Creatinine Ratio 32.9 H Glucose 95 POC Glucose 132 H 170 H Calcium 8.7 Blood Type Antibody Screen Crossmatch 06/06/18 20:38 WBC RBC Hgb Hct MCV MCH MCHC RDW Std Deviation RDW Coeff of [place]ylah Plt Count MPV Immature Gran % (Auto) Neut % (Auto) Lymph % (Auto) [place] % (Auto) Eos % (Auto) Baso % (Auto) Immature Gran # (Auto) Neut # (Auto) Lymph # (Auto) [place] # (Auto) Eos # (Auto) Baso # (Auto) RBC Morphology Sodium Potassium Chloride Carbon Dioxide Anion Gap BUN Creatinine Est Cr Clr Drug Dosing Est GFR ( Amer) Est GFR (Non-Af Amer) BUN/Creatinine Ratio Glucose POC Glucose 187 H Calcium Blood Type Antibody Screen Crossmatch Diagnostic Findings CT right hip IMPRESSION: 1. Again seen is a comminuted and angulated intertrochanteric fracture of the right femur as above with surrounding hemorrhage. 2. No additional fracture is seen. The visualized right sacrum and right hemipelvis appear intact. 3. 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 4. There is a minimally complex 6 x 5 cm cystic lesion in the right adnexa, likely related to the right ovary. Follow-up with a pelvic ultrasound is recommended. 5. Rectosigmoid fecal impaction. Medications Administered Current Inpatient Medications Acetaminophen (Tylenol) 650 mg PO Q6H PRN PRN Reason: mild pain (scale 1-3) Stop: 07/05/18 18:28 Acetaminophen (Tylenol) 650 mg PO PRE-TREAT@1500 [facility] Stop: 06/06/18 23:59 Last Admin: 06/06/18 17:08 Dose: 650 mg Amlodipine Besylate (Norvasc) 5 mg PO QAM [facility] Stop: 07/06/18 12:59 Last Admin: 06/06/18 14:45 Dose: 5 mg Bisacodyl (Dulcolax) 10 mg SD DAILY PRN PRN Reason: Constipation Stop: 07/05/18 18:28 Dextrose (Dextrose 50%) 25 - 50 ml IV UD PRN; Protocol PRN Reason: Hypoglycemia Protocol Stop: 07/06/18 22:20 Diphenhydramine HCl (Benadryl) 25 mg IV PRE-TREAT@1500 [facility] Stop: 06/06/18 23:59 Last Admin: 06/06/18 17:08 Dose: 25 mg Donepezil HCl (Aricept) 5 mg PO HS [facility] Stop: 07/05/18 20:59 Last Admin: 06/06/18 20:43 Dose: 5 mg Glucagon (Glucagen) 1 mg SQ UD PRN; Protocol PRN Reason: Hypoglycemia Protocol Stop: 07/06/18 22:20 Glucose (Glucose 40%) 15 - 30 gm PO UD PRN; Protocol PRN Reason: Hypoglycemia Protocol Stop: 07/06/18 22:20 Glucose (Dex4 Glucose) 4 - 8 tabs PO UD PRN; Protocol PRN Reason: Hypoglycemia Protocol Stop: 07/06/18 22:20 Heparin Sodium (Porcine) (Heparin Sodium (Porcine)) 5,000 units SQ Q8 [facility] Stop: 07/06/18 13:59 Last Admin: 06/06/18 22:10 Dose: 5,000 units Hydralazine HCl (Hydralazine Hcl) 10 mg IV Q6 PRN PRN Reason: Blood Pressure - High Stop: 07/05/18 18:48 Last Admin: 06/06/18 10:20 Dose: 10 mg Lactated Ringer's (Lr) 1,000 mls @ 80 mls/hr IV .[id number] [facility] Stop: 07/05/18 18:28 Last Admin: 06/06/18 09:53 Dose: 80 mls/hr Cefazolin Sodium (Ancef 2000mg) 2,000 mg in 15 mls @ 3.75 mls/min IV PREOP [facility] ; Protocol Stop: 06/06/18 23:59 Last Admin: 06/06/18 15:15 Dose: Not Given Insulin Aspart (Novolog Flexpen) 0 units SC ACHS [facility] Stop: 07/06/18 22:59 Insulin Glargine (Lantus Solostar Pen) 6 units SQ QAM [facility] Stop: 07/06/18 08:59 Last Admin: 06/06/18 10:18 Dose: 6 units Magnesium Hydroxide (Milk Of Magnesia) 30 ml PO DAILY PRN PRN Reason: Constipation Stop: 07/05/18 18:28 Metoprolol Tartrate (Lopressor) 50 mg PO BID [facility] Stop: 07/05/18 20:59 Last Admin: 06/06/18 20:42 Dose: 50 mg Miscellaneous (Carbohydrates For Hypoglycemia) 15 - 30 gm PO UD PRN PRN Reason: Hypoglycemia Treatment Stop: 07/06/18 22:20 Morphine Sulfate (Morphine Sulfate) 2 mg IV Q2H PRN PRN Reason: moderate pain (scale 4-6) Stop: 06/19/18 18:28 Naloxone HCl (Narcan) 0.1 mg IV UD PRN PRN Reason: opiate overdose Stop: 07/05/18 18:28 Ondansetron HCl (Zofran) 4 mg IV Q6H PRN PRN Reason: Nausea Stop: 07/05/18 18:28 Oxycodone HCl (Roxicodone Immediate Rel) 5 mg PO Q4H PRN PRN Reason: moderate pain (scale 4-6) Stop: 06/19/18 18:28 Last Admin: 06/06/18 20:41 Dose: 5 mg Senna/Docusate Sodium (Senokot S) 2 tab PO HS [facility] Stop: 07/05/18 20:59 Last Admin: 06/06/18 20:43 Dose: 2 tab Sodium Biphosphate/Sodium Phosphate (Fleet Enema) 132 ml SD DAILY PRN PRN Reason: Constipation Stop: 07/05/18 18:28 _ (1) Fracture of right hip Encounter type: initial encounter Fracture healing: Fracture type: closed Open fracture type: Qualified Code(s): S72.001A - Fracture of unspecified part of neck of right femur, initial encounter for closed fracture (2) Fall Encounter type: initial encounter Qualified Code(s): W19.XXXA - Unspecified fall, initial encounter
[2018-06-06] MEDS ORDERED: FUROSEMIDE 40 MG in SYRINGE 0 ML IV ONE (18:00)
--- NOTE | 2018-06-06 20:01 | CT Scan Report ---
CT SCAN OF THE RIGHT HIP WITHOUT IV CONTRAST CLINICAL HISTORY: Right hip fracture. COMPARISON STUDY: Radiographs of the right femur dated 06/06/2018. TECHNIQUE: CT scan of the right hip is performed from the bony pelvis to the femoral shaft. Images ar e reviewed in the axial, sagittal, and coronal planes. IV contrast was not administered for this exam ination. A dose lowering technique was utilized adhering to the principles of ALARA. CT DOSE: 885.74 mGy.cm FINDINGS: The skeletal structures are osteopenic. Again seen is a comminuted and angulated intertroch anteric fracture of the right femur. There are numerous small distracted fragments, with mild medial displacement of the lesser trochanter. There is surrounding hemorrhage, with no large/organized hemat alexa is seen. The visualized portions of the sacrum and the right hemipelvis appear intact. There is a rthritic change of the right hip with evidence of avascular necrosis of the right femoral head. Scler otic change and bony overgrowth is noted at the symphysis pubis. Soft tissue contusion overlies the r ight hip. Rectosigmoid fecal impaction is noted. The bladder is decompressed around a Sherman catheter. There is no right pelvic sidewall or inguinal adenopathy. No intramuscular hematoma is identified. D ense calcification is noted at the origin of the right hamstrings tendon. There is an indeterminant a nd minimally complex cystic lesion identified in the right adnexa which measures approximately 6 x 5 cm. This is likely related to the right ovary. There is advanced atherosclerotic calcification of the right femoral artery. IMPRESSION: 1. Again seen is a comminuted and angulated intertrochanteric fracture of the right femur as above wi th surrounding hemorrhage. 2. No additional fracture is seen. The visualized right sacrum and right hemipelvis appear intact. 3. 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 4. There is a minimally complex 6 x 5 cm cystic lesion in the right adnexa, likely related to the rig ht ovary. Follow-up with a pelvic ultrasound is recommended. 5. Rectosigmoid fecal impaction. Electronically signed by: Elvin Heaton M.D. 06/06/2018 8:00 PM
[2018-06-06] MEDS: DONEPEZIL HCL 5 MG TAB PO SCH (20:43)
[2018-06-06] MEDS: DOCUSATE SODIUM/SENNA 50/8.6MG TAB PO SCH (20:43)
[2018-06-06] MEDS ORDERED: DEXTROSE 50% 50 ML SYRINGE IV PRN (22:21)
[2018-06-06] MEDS ORDERED: GLUCOSE 10 TABS/TUBE PO PRN (22:21)
[2018-06-06] MEDS ORDERED: CARBOHYDRATES FOR HYPOGLYCEMIA PO PRN (22:21)
[2018-06-06] MEDS ORDERED: GLUCAGON FOR INJ 1 MG VIAL SQ PRN (22:21)
[2018-06-06] MEDS ORDERED: GLUCOSE 40% GEL 15 GM TUBE PO PRN (22:21)
[2018-06-06] MEDS ORDERED: INSULIN ASPART 100 UNITS/ML 3 ML PEN SC SCH (23:00)
[2018-06-07] MEDS: HEPARIN SOD 5,000 UNIT/0.5 ML VIAL SQ SCH ×3 (02:43→20:48)
[2018-06-07] MEDS ORDERED: Nursing to Pharmacy Communication ONE ×3 (02:46→21:51)
[2018-06-07] MEDS: INSULIN ASPART 100 UNITS/ML 3 ML PEN SC SCH ×4 (06:08→20:43)
[2018-06-07] MEDS: METOPROLOL TARTRATE 50 MG TAB PO SCH ×2 (08:53→20:39)
[2018-06-07] MEDS: AMLODIPINE BESYLATE 5 MG TAB PO SCH (09:10)
[2018-06-07] MEDS: INSULIN GLARGINE SOLOSTAR 100 UNITS/ML 3 ML PEN SQ SCH (09:11)
[2018-06-07 09:20] LABS: Hematocrit (blood only) 23.5 % (37-47); Hemoglobin 7.7 g/dL (12.0-16.0); Mean Corpuscular Volume 92.2 fL (80-100); Mean Platelet Volume 9.1 fL (7.4-10.4); Platelet Count 142 K/uL (130-400); RDW Coefficient of Variation 13.8 % (11.5-14.5); RDW Standard Deviation 45.8 fL (36.4-46.3); Red Blood Count 2.55 M/uL (4.2-5.4)
[2018-06-07 09:29] LABS: Mean Corpuscular Hgb Conc 32.8 g/dL (32-36)
[2018-06-07 09:41] LABS: Basophils # (auto) 0.01 K/uL (0-0.2); Basophils % (auto) 0.1 %; Eosinophils # (auto) 0.01 K/uL (0-0.5); Eosinophils % (auto) 0.1 %; Immature Granulocytes # (auto) 0.02 K/uL (0.00-0.02); Immature Granulocytes % (auto) 0.2 %; Lymphocytes % (auto) 15.9 %; Monocytes # (auto) 0.62 K/uL (0.11-0.59); Monocytes % (auto) 7.6 %; Neutrophils # (auto) 6.24 K/uL (1.4-6.5); Neutrophils % (auto) 76.1 %; RBC Morphology Unremarkable
[2018-06-07 09:42] LABS: BUN Creatinine Ratio 26.2 (10-20); Calcium 8.3 mg/dl (8.5-10.1); Creatinine Clr Calc Pharmacy 15.4 ml/min; Est GFR (African American) 22.2; Est GFR (Non-African American) 19.2; Potassium 3.9 mmol/L (3.5-5.1)
[2018-06-07] MEDS ORDERED: SODIUM CHLORIDE 0.9% 250 ML IV PRN ×2 (10:02→18:36)
[2018-06-07] MEDS: HydrALAZINE HCL 20 MG/ML VIAL IV PRN ×2 (11:14→23:53)
[2018-06-07] MEDS ORDERED: LIDOCAINE HCL 2% 2 ML VIAL/AMP(20MG/ML) INFIL ONE (11:41)
[2018-06-07] MEDS ORDERED: fentaNYL citrate 100 MCG/2 ML VIAL ONE (11:41)
[2018-06-07] MEDS ORDERED: ONDANSETRON INJ 2 MG/ML 2 ML VIAL ONE (11:41)
[2018-06-07] MEDS ORDERED: PROPOFOL IV EMULSION 10 MG/ML 20 ML VIAL IV ONE (11:41)
[2018-06-07 12:51] LABS: Blood Urine Trace (Negative)
[2018-06-07] MEDS: ACETAMINOPHEN 325 MG TAB PO PRN ×2 (13:40→20:15)
[2018-06-07] MEDS: LACTATED RINGER'S 1,000 ML IV SCH ×2 (13:50→22:03)
[2018-06-07] MEDS ORDERED: BUPIVACAINE 0.5 % 5 MG/1 ML PF 10ML VIAL ONE (13:54)
[2018-06-07] MEDS ORDERED: BUPIVACAINE/EPINEPHRINE 0.5% MPF 1:200,000 30 ML VIAL ONE (14:14)
--- NOTE | 2018-06-07 14:35 | History & Physical Bridge Note ---
Date of Service June 07, 2018 History & Physical Bridge Note I have examined the patient, reviewed the History & Physical and in the interval since the performance of the History & Physical I have noted the following changes of clinical significance: no changes noted
--- NOTE | 2018-06-07 14:39 | Orthopedic Progress Note ---
Date of Service June 07, 2018 Assessment & Plan (1) Fracture of right hip: I have indicated the patient for right hip cephalo-medullary nail, the risk benefits and comp occasions of procedure were explained to the patient and family members at bedside in detail which include however not limited to infections, blood clots, acute blood loss, injury to surrounding nerves, bone, vessels, soft tissue, arthrofibrosis, malunion, nonunion, failure of the implants, need for additional surgery, cardiac and pulmonary events and . Patient family members expressed understanding and wished to proceed with surgical intervention and informed consent was obtained at this time. Nonweightbearing right lower extremity Antibiotics licensed occupational therapist the OR Consent in chart Patient's hemoglobin 7.7, transfusion stopped secondary to reaction. Will discuss with anesthesia and medical team prior to proceeding. Subjective Patient seen in preoperative holding, accompanied with family members at bedside , comfortable, pain well controlled, complaining of right hip pain with movement , denies numbness or tingling to the right lower extremity, denies associated injuries. Physical Exam 2 Vital Signs (Past 24 Hours): Last Vital Signs Temp 39.1 C H 06/07/18 14:18 Pulse 72 06/07/18 14:18 Resp 18 06/07/18 14:18 BP 128/62 06/07/18 14:18 Pulse Ox 93 06/07/18 14:18 Physical Exam: Right lower extremity is neurovascular sensory intact, there is +2 dorsalis pedis pulse, + EHL/FHL/TA/GS, compartment soft nontender, right lower extremity is shortened and externally rotated. _ (1) Fracture of right hip Encounter type: initial encounter Fracture healing: Fracture type: closed Open fracture type: Qualified Code(s): S72.001A - Fracture of unspecified part of neck of right femur, initial encounter for closed fracture
--- NOTE | 2018-06-07 15:40 | Anesthesiology Progress Note ---
Date of Service June 07, 2018 Assessment & Plan (1) Encounter for pre-operative examination: I spoke to Dr. Valero in the blood bank who stated that the transfusion reaction work-up had been completed. There was no evidence of a hemolytic transfusion reaction. Dr. Valero said that the patient was cleared to receive blood again when her fever had resolved. I spoke with both Dr. Valero and Dr. De La Cruz about the associated risks of 1) reinitiating the transfusion while the patient was febrile and proceeding to the OR now VERSUS 2) delaying the fracture repair until tomorrow so that the patient could receive blood after her fever resolves. The decision was made that it was better for the patient to delay surgery until she was non-febrile and had been able to receive her blood transfusion. This plan was discussed with the patient and her sons, as well as with Dr. Valero and Dr. Sharp. Subjective Patient arrived in preop for planned hip fracture repair. Patients temperature on arrival was 39.1. No other complaints or symptoms at this time. Of note, the patient had become febrile on the floor after starting to receive her planned unit of PRBCs. The transfusion was stopped and the patient had been given tylenol for her fever. Physical Exam Vital Signs Last Vital Signs Temp 39.1 C H 06/07/18 14:18 Pulse 72 06/07/18 14:18 Resp 18 06/07/18 14:18 BP 128/62 06/07/18 14:18 Pulse Ox 93 06/07/18 14:18 Results & Data Medications Administered Acetaminophen (Tylenol) 650 mg PO Q6H PRN PRN Reason: mild pain (scale 1-3) Stop: 07/05/18 18:28 Last Admin: 06/07/18 13:40 Dose: 650 mg Amlodipine Besylate (Norvasc) 5 mg PO QAM [facility] Stop: 07/06/18 12:59 Last Admin: 06/07/18 09:10 Dose: 5 mg Admin: 06/06/18 14:45 Dose: 5 mg Donepezil HCl (Aricept) 5 mg PO HS [facility] Stop: 07/05/18 20:59 Last Admin: 06/06/18 20:43 Dose: 5 mg Admin: 06/05/18 20:58 Dose: 5 mg Heparin Sodium (Porcine) (Heparin Sodium (Porcine)) 5,000 units SQ Q8 [facility] Stop: 07/06/18 13:59 Last Admin: 06/07/18 13:42 Dose: Not Given Admin: 06/07/18 02:43 Dose: Not Given Admin: 06/06/18 22:10 Dose: 5,000 units Admin: 06/06/18 14:40 Dose: 5,000 units Hydralazine HCl (Hydralazine Hcl) 10 mg IV Q6 PRN PRN Reason: Blood Pressure - High Stop: 07/05/18 18:48 Last Admin: 06/07/18 11:14 Dose: 10 mg Admin: 06/06/18 10:20 Dose: 10 mg Lactated Ringer's (Lr) 1,000 mls @ 80 mls/hr IV .[id number] [facility] Stop: 07/05/18 18:28 Last Admin: 06/07/18 13:50 Dose: 80 mls/hr Infusion: 06/07/18 12:10 Dose: 80 mls/hr Admin: 06/06/18 23:40 Dose: 80 mls/hr Infusion: 06/06/18 22:23 Dose: 80 mls/hr Admin: 06/06/18 09:53 Dose: 80 mls/hr Infusion: 06/06/18 09:26 Dose: 80 mls/hr Infusion: 06/06/18 06:05 Dose: 80 mls/hr Admin: 06/05/18 20:55 Dose: 80 mls/hr Insulin Aspart (Novolog Flexpen) 0 units SC Q6 [facility] Stop: 07/07/18 05:59 Last Admin: 06/07/18 12:49 Dose: Not Given Admin: 06/07/18 06:08 Dose: Not Given Insulin Glargine (Lantus Solostar Pen) 6 units SQ QAM [facility] Stop: 07/06/18 08:59 Last Admin: 06/07/18 09:11 Dose: 6 units Admin: 06/06/18 10:18 Dose: 6 units Metoprolol Tartrate (Lopressor) 50 mg PO BID [facility] Stop: 07/05/18 20:59 Last Admin: 06/07/18 08:53 Dose: 50 mg Admin: 06/06/18 20:42 Dose: 50 mg Admin: 06/06/18 09:53 Dose: 50 mg Admin: 06/05/18 20:58 Dose: 50 mg Oxycodone HCl (Roxicodone Immediate Rel) 5 mg PO Q4H PRN PRN Reason: moderate pain (scale 4-6) Stop: 06/19/18 18:28 Last Admin: 06/06/18 20:41 Dose: 5 mg Senna/Docusate Sodium (Senokot S) 2 tab PO HS [facility] Stop: 07/05/18 20:59 Last Admin: 06/06/18 20:43 Dose: 2 tab Admin: 06/05/18 20:59 Dose: 2 tab
[2018-06-07] MEDS ORDERED: predniSONE 20 MG TAB PO ONE (19:00)
[2018-06-07] MEDS ORDERED: DiphenhydrAMINE HCL 50 MG/ML VIAL IV ONE (19:00)
[2018-06-07] MEDS: DOCUSATE SODIUM/SENNA 50/8.6MG TAB PO SCH (20:39)
[2018-06-07] MEDS: DONEPEZIL HCL 5 MG TAB PO SCH (20:39)
--- NOTE | 2018-06-07 22:52 | Hospitalist Progress Note ---
Date of Service June 07, 2018 Assessment & Plan (1) Fracture of right hip: NPO after midnight plan for OR tomorrow after 2 units of PRBC given tonight pain control with Oxycodone, Morphine plan for surgical repair tomorrow with Dr. De La Cruz (2) Fall: mechanical fall, no loss of consciousness PT/OT will be ordered after surgery (3) CKD (chronic kidney disease), stage IV: Cr at baseline of 2.5 on admission, improved slightly to 2.2 with fluids follows with Dr. Worley as outpatient, no need for consult electrolytes stable repeat BMP in the morning prior to OR (4) Diabetes: continue Lantus at 6 units in the morning can increase to 12 units (home dose) after surgery Novolog SS (5) HTN (hypertension): continue Lopressor BID resume Norvasc due to elevated pressures and can have in the morning prior to OR Hydralazine PRN for elevated pressures (6) Anemia: Hb down to 7.7 from 9 two days ago, no signs of blood loss could be dilutional from fluids ortho would like to transfuse 2 units prior to surgery attempted transfusion today, developed fever, vitals stable sent blood for analysis, no hemolytic reaction will pretreat with Benadryl and Prednisone, give 2 units, each unit to go in slow over 4 hours each check H/H in the morning (7) Adnexal cyst: incidental finding on CT hip get pelvic US as outpatient discussed this result with patient and her family Subjective patient was feeling well prior to surgery, just c/o occasional pain in the hip Hb 7.7 this morning, orthopedic wanted patient transfused prior to OR PRBC transfusion initiated, patient developed fever and so transfusion was stopped blood sent for analysis, no evidence of hemolysis, just a reaction surgery placed on hold, want patient's Hb higher prior to surgery discussed with RN, will give pre-treatment with Benadryl and Prednisone, transfuse over 4 hours each, monitor for fever Cr improved slightly to 2.23 updated family at the bedside, plan for OR tomorrow Review of Systems All systems reviewed & are unremarkable except as noted in HPI & below Constitutional: + fever (during transfusion this afternoon) Respiratory: no cough Cardiovascular: no chest pain Musculoskeletal: + joint pain (right hip) Physical Exam 2 Vital Signs (Past 24 Hours): Last Vital Signs Temp 37.6 C H 06/07/18 21:49 Pulse 65 06/07/18 21:49 Resp 18 06/07/18 21:49 BP 161/54 H 06/07/18 21:49 Pulse Ox 97 06/07/18 21:49 Constitutional: WD/WN, vitals as above Eyes: PERRL, conjunctivae normal, anicteric sclerae ENMT: external ear and nose normal, oropharynx normal Neck: trachea midline, no thyromegaly Respiratory: normal respiratory effort, lungs clear to auscultation Cardiovascular: RRR, no murmur, no edema Vessels: normal peripheral pulses Extremities: normal capillary refill; no calf tenderness and no pedal edema Gastrointestinal (Abdomen): normal bowel sounds, soft, nontender, no hepatosplenomegaly Musculoskeletal: Head/Neck/Chest: normocephalic and head atraumatic Extremities: + limited ROM of extremities (right hip due to pain); + extremities abnormal to inspection (right leg short and externally rotated), no cyanosis and no clubbing Skin: no rashes, warm and dry Neurologic: patellar DTR's 2+ bilat, sensation intact and PERRL, EOMI, accommodation nl, no face palsy, no dysarthria Psychiatric: A+Ox3, euthymic affect Lymphatic: no cervical or axillary lymphadenopathy Results & Data Laboratory Results Laboratory Results - last 24 hr 06/05/18 06/06/18 06/07/18 15:32 23:50 06:02 WBC RBC Hgb Hct MCV MCH MCHC RDW Std Deviation RDW Coeff of Kylah Plt Count MPV Immature Gran % (Auto) Neut % (Auto) Lymph % (Auto) Nye % (Auto) Eos % (Auto) Baso % (Auto) Immature Gran # (Auto) Neut # (Auto) Lymph # (Auto) Nye # (Auto) Eos # (Auto) Baso # (Auto) RBC Morphology Sodium Potassium Chloride Carbon Dioxide Anion Gap BUN Creatinine Est Cr Clr Drug Dosing Est GFR ( Amer) Est GFR (Non-Af Amer) BUN/Creatinine Ratio Glucose POC Glucose 153 H 127 H Calcium Urine Blood Urine RBC (Auto) Blood Type O Positive Antibody Screen NEGATIVE Crossmatch See Detail Transfusion React Date Transfusion React Time Tx React Symptoms Reaction Clerical Check Lab Clerical Err Check React Component Return Volume Returned Pre-Trans Blood Type Pre-Trans Vis Hemolysis Pre-Trans ERIKA Pre-Trans ERIKA IgG Pre-Trans ERIKA Poly Pre-Trans ERIKA C3b, C3d Post-Trans Blood Type Post-Tx Visible Hemolys Post-Trans ERIKA Post-Trans ERIKA IgG Post-Trans ERIKA Poly Post-Trans ERIKA C3b, C3d Post-Trans Ur Hemoglobin Reaction Path Interpret Transfusion Serv Com 06/07/18 06/07/18 06/07/18 09:08 09:08 11:58 WBC 8.20 RBC 2.55 L Hgb 7.7 L Hct 23.5 L MCV 92.2 MCH 30.2 MCHC 32.8 RDW Std Deviation 45.8 RDW Coeff of Kylah 13.8 Plt Count 142 MPV 9.1 Immature Gran % (Auto) 0.2 Neut % (Auto) 76.1 Lymph % (Auto) 15.9 Nye % (Auto) 7.6 Eos % (Auto) 0.1 Baso % (Auto) 0.1 Immature Gran # (Auto) 0.02 Neut # (Auto) 6.24 Lymph # (Auto) 1.30 Nye # (Auto) 0.62 H Eos # (Auto) 0.01 Baso # (Auto) 0.01 RBC Morphology Unremarkable Sodium 142 Potassium 3.9 Chloride 109 H Carbon Dioxide 25 Anion Gap 8.0 BUN 58 H Creatinine 2.23 H Est Cr Clr Drug Dosing 15.4 Est GFR ( Amer) 22.2 Est GFR (Non-Af Amer) 19.2 BUN/Creatinine Ratio 26.2 H Glucose 112 H POC Glucose 110 H Calcium 8.3 L Urine Blood Urine RBC (Auto) Blood Type Antibody Screen Crossmatch Transfusion React Date Transfusion React Time Tx React Symptoms Reaction Clerical Check Lab Clerical Err Check React Component Return Volume Returned Pre-Trans Blood Type Pre-Trans Vis Hemolysis Pre-Trans ERIKA Pre-Trans ERIKA IgG Pre-Trans ERIKA Poly Pre-Trans ERIKA C3b, C3d Post-Trans Blood Type Post-Tx Visible Hemolys Post-Trans ERIKA Post-Trans ERIKA IgG Post-Trans ERIKA Poly Post-Trans ERIKA C3b, C3d Post-Trans Ur Hemoglobin Reaction Path Interpret Transfusion Serv Com 06/07/18 06/07/18 06/07/18 12:25 12:37 16:31 WBC RBC Hgb Hct MCV MCH MCHC RDW Std Deviation RDW Coeff of Kylah Plt Count MPV Immature Gran % (Auto) Neut % (Auto) Lymph % (Auto) Nye % (Auto) Eos % (Auto) Baso % (Auto) Immature Gran # (Auto) Neut # (Auto) Lymph # (Auto) Nye # (Auto) Eos # (Auto) Baso # (Auto) RBC Morphology Sodium Potassium Chloride Carbon Dioxide Anion Gap BUN Creatinine Est Cr Clr Drug Dosing Est GFR ( Amer) Est GFR (Non-Af Amer) BUN/Creatinine Ratio Glucose POC Glucose 96 Calcium Urine Blood Trace H Urine RBC (Auto) 5-10 H Blood Type Antibody Screen Crossmatch Transfusion React Date 06/07/18 Transfusion React Time 1210 Tx React Symptoms FEVER >1 DEG C Reaction Clerical Check None Found Lab Clerical Err Check None Found React Component Return PCLR Volume Returned APROX 275ML Pre-Trans Blood Type O POSITIVE Pre-Trans Vis Hemolysis No Pre-Trans ERIKA Negative Pre-Trans ERIKA IgG Neg Pre-Trans ERIKA Poly Neg Pre-Trans ERIKA C3b, C3d Neg Post-Trans Blood Type O POSITIVE Post-Tx Visible Hemolys No Post-Trans ERIKA Negative Post-Trans ERIKA IgG Neg Post-Trans ERIKA Poly Neg Post-Trans ERKIA C3b, C3d Neg Post-Trans Ur Hemoglobin Reaction Path Interpret Transfusion Serv 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 06/07/18 20:29 WBC RBC Hgb Hct MCV MCH MCHC RDW Std Deviation RDW Coeff of Kylah Plt Count MPV Immature Gran % (Auto) Neut % (Auto) Lymph % (Auto) Nye % (Auto) Eos % (Auto) Baso % (Auto) Immature Gran # (Auto) Neut # (Auto) Lymph # (Auto) Nye # (Auto) Eos # (Auto) Baso # (Auto) RBC Morphology Sodium Potassium Chloride Carbon Dioxide Anion Gap BUN Creatinine Est Cr Clr Drug Dosing Est GFR ( Amer) Est GFR (Non-Af Amer) BUN/Creatinine Ratio Glucose POC Glucose 187 H Calcium Urine Blood Urine RBC (Auto) Blood Type Antibody Screen Crossmatch Transfusion React Date Transfusion React Time Tx React Symptoms Reaction Clerical Check Lab Clerical Err Check React Component Return Volume Returned Pre-Trans Blood Type Pre-Trans Vis Hemolysis Pre-Trans ERIKA Pre-Trans ERIKA IgG Pre-Trans ERIKA Poly Pre-Trans ERIKA C3b, C3d Post-Trans Blood Type Post-Tx Visible Hemolys Post-Trans ERIKA Post-Trans ERIKA IgG Post-Trans ERIKA Poly Post-Trans ERIKA C3b, C3d Post-Trans Ur Hemoglobin Reaction Path Interpret Transfusion Serv Com Medications Administered Current Inpatient Medications Acetaminophen (Tylenol) 650 mg PO Q6H PRN PRN Reason: mild pain (scale 1-3) Stop: 07/05/18 18:28 Last Admin: 06/07/18 20:15 Dose: 650 mg Amlodipine Besylate (Norvasc) 5 mg PO QAM [facility] Stop: 07/06/18 12:59 Last Admin: 06/07/18 09:10 Dose: 5 mg Bisacodyl (Dulcolax) 10 mg MT DAILY PRN PRN Reason: Constipation Stop: 07/05/18 18:28 Dextrose (Dextrose 50%) 25 - 50 ml IV UD PRN; Protocol PRN Reason: Hypoglycemia Protocol Stop: 07/06/18 22:20 Donepezil HCl (Aricept) 5 mg PO HS [facility] Stop: 07/05/18 20:59 Last Admin: 06/07/18 20:39 Dose: 5 mg Glucagon (Glucagen) 1 mg SQ UD PRN; Protocol PRN Reason: Hypoglycemia Protocol Stop: 07/06/18 22:20 Glucose (Glucose 40%) 15 - 30 gm PO UD PRN; Protocol PRN Reason: Hypoglycemia Protocol Stop: 07/06/18 22:20 Glucose (Dex4 Glucose) 4 - 8 tabs PO UD PRN; Protocol PRN Reason: Hypoglycemia Protocol Stop: 07/06/18 22:20 Heparin Sodium (Porcine) (Heparin Sodium (Porcine)) 5,000 units SQ Q8 [facility] Stop: 07/06/18 13:59 Last Admin: 06/07/18 20:48 Dose: Not Given Hydralazine HCl (Hydralazine Hcl) 10 mg IV Q6 PRN PRN Reason: Blood Pressure - High Stop: 07/05/18 18:48 Last Admin: 06/07/18 11:14 Dose: 10 mg Lactated Ringer's (Lr) 1,000 mls @ 80 mls/hr IV .[id number] [facility] Stop: 07/05/18 18:28 Last Admin: 06/07/18 22:03 Dose: Not Given Sodium Chloride (Nss 250ml) 250 mls @ 15 mls/hr IV .[id number] PRN PRN Reason: For Transfusion Stop: 07/07/18 18:35 Insulin Aspart (Novolog Flexpen) 0 units SC Q6 [facility] Stop: 07/08/18 00:00 Insulin Glargine (Lantus Solostar Pen) 6 units SQ QAM [facility] Stop: 07/06/18 08:59 Last Admin: 06/07/18 09:11 Dose: 6 units Magnesium Hydroxide (Milk Of Magnesia) 30 ml PO DAILY PRN PRN Reason: Constipation Stop: 07/05/18 18:28 Metoprolol Tartrate (Lopressor) 50 mg PO BID [facility] Stop: 07/05/18 20:59 Last Admin: 06/07/18 20:39 Dose: 50 mg Miscellaneous (Carbohydrates For Hypoglycemia) 15 - 30 gm PO UD PRN PRN Reason: Hypoglycemia Treatment Stop: 07/06/18 22:20 Morphine Sulfate (Morphine Sulfate) 2 mg IV Q2H PRN PRN Reason: moderate pain (scale 4-6) Stop: 06/19/18 18:28 Naloxone HCl (Narcan) 0.1 mg IV UD PRN PRN Reason: opiate overdose Stop: 07/05/18 18:28 Ondansetron HCl (Zofran) 4 mg IV Q6H PRN PRN Reason: Nausea Stop: 07/05/18 18:28 Oxycodone HCl (Roxicodone Immediate Rel) 5 mg PO Q4H PRN PRN Reason: moderate pain (scale 4-6) Stop: 06/19/18 18:28 Last Admin: 06/06/18 20:41 Dose: 5 mg Senna/Docusate Sodium (Senokot S) 2 tab PO HS [facility] Stop: 07/05/18 20:59 Last Admin: 06/07/18 20:39 Dose: 2 tab Sodium Biphosphate/Sodium Phosphate (Fleet Enema) 132 ml MT DAILY PRN PRN Reason: Constipation Stop: 07/05/18 18:28 _ (1) Fracture of right hip Encounter type: initial encounter Fracture healing: Fracture type: closed Open fracture type: Qualified Code(s): S72.001A - Fracture of unspecified part of neck of right femur, initial encounter for closed fracture (2) Fall Encounter type: initial encounter Qualified Code(s): W19.XXXA - Unspecified fall, initial encounter
[2018-06-08] MEDS: INSULIN ASPART 100 UNITS/ML 3 ML PEN SC SCH ×5 (06:20→21:06)
[2018-06-08] MEDS: HEPARIN SOD 5,000 UNIT/0.5 ML VIAL SQ SCH (06:20)
[2018-06-08 07:41] LABS: Hematocrit (blood only) 32.1 % (37-47); Hemoglobin 10.9 g/dL (12.0-16.0)
[2018-06-08 07:52] LABS: BUN Creatinine Ratio 25.8 (10-20); Calcium 8.5 mg/dl (8.5-10.1); Creatinine Clr Calc Pharmacy 15.3 ml/min; Potassium 3.9 mmol/L (3.5-5.1)
[2018-06-08] MEDS: METOPROLOL TARTRATE 50 MG TAB PO SCH ×2 (07:59→21:05)
[2018-06-08] MEDS: AMLODIPINE BESYLATE 5 MG TAB PO SCH (07:59)
[2018-06-08] MEDS: INSULIN GLARGINE SOLOSTAR 100 UNITS/ML 3 ML PEN SQ SCH (08:00)
[2018-06-08] MEDS ORDERED: BUPIVACAINE 0.5 % 5 MG/1 ML PF 10ML VIAL ONE (10:47)
[2018-06-08] MEDS ORDERED: PROPOFOL IV EMULSION 10 MG/ML 20 ML VIAL IV ONE (10:51)
[2018-06-08] MEDS ORDERED: LIDOCAINE HCL 2% 2 ML VIAL/AMP(20MG/ML) INFIL ONE (10:51)
[2018-06-08] MEDS ORDERED: MIDAZOLAM HCL 1 MG/ML 2ML VIAL ONE (10:51)
[2018-06-08] MEDS ORDERED: fentaNYL citrate 100 MCG/2 ML VIAL ONE (10:51)
[2018-06-08] MEDS ORDERED: KETAMINE HCL INJ 50 MG/ML 10 ML VIAL ONE (10:52)
--- NOTE | 2018-06-08 10:53 | Orthopedic Progress Note ---
Date of Service June 08, 2018 Assessment & Plan (1) Fracture of right hip: Plan for Right hip ORIF troch nail today. NPO Nonweightbearing right lower extremity Antibiotics communications manager the OR Consent in chart Patient's hemoglobin stable at 10.9 post partial transfusion. Subjective Patient seen in room accompanied with family members at bedside, comfortable, pain well controlled, complaining of right hip pain with movement, denies numbness or tingling to the right lower extremity, denies sob, cp, n/v. Constitutional: as per Subjective / HPI Physical Exam Vital Signs (Past 24 Hours): Last Vital Signs Temp 37.0 C 06/08/18 07:47 Pulse 75 06/08/18 07:47 Resp 15 06/08/18 07:47 BP 186/68 H 06/08/18 07:47 Pulse Ox 97 06/08/18 07:47 Physical Exam: RIght hip ER, toes an ankle mobile, ROM deferred, N/V+, A&Ox3. (1) Fracture of right hip Encounter type: initial encounter Fracture type: closed Qualified Code(s): S72.001A - Fracture of unspecified part of neck of right femur, initial encounter for closed fracture
[2018-06-08] MEDS ORDERED: fentaNYL citrate 100 MCG/2 ML VIAL IV PRN (10:57)
[2018-06-08] MEDS ORDERED: ATROPINE SULFATE 0.1 MG/ML 10ML SYR IV PRN (10:57)
[2018-06-08] MEDS ORDERED: ePHEDrine sulfate 50 MG/ML AMP IV PRN (10:57)
[2018-06-08] MEDS ORDERED: BUPIVACAINE/EPINEPHRINE 0.5% MPF 1:200,000 30 ML VIAL ONE (11:31)
[2018-06-08] MEDS ORDERED: CEFAZOLIN 1,000 MG/7.5 ML IV PUSH IV ONE (11:35)
[2018-06-08] MEDS ORDERED: CEFAZOLIN 1000MG 1,000 MG/7.5 ML SYR IV SCH (12:00)
[2018-06-08] MEDS ORDERED: NALOXONE HCL 0.4 MG/1 ML VIAL/CARP IV PRN (12:21)
--- NOTE | 2018-06-08 13:10 | Operative Report ---
Post Operative Report Pre & Post Diagnosis Operation Date: 06/07/18 08:45 <No data on this case meets the specified criteria> Operation Date: 06/08/18 07:00 Pre-Op Diagnosis: Right Femur Fracture Post-Op Diagnosis: Right Femur Fracture Procedure Operation Date: 06/07/18 08:45 <No data on this case meets the specified criteria> Operation Date: 06/08/18 07:00 Actual Procedures p Intramedullary Nailing Right Femur(Right) utilizing intermediate length I am truck nail with a 105 mm spiral blade helical blade and a 32 mm distal locking screw- Aron Fine DO Surgeon Aron Fine DO Mesh Worker none Estimated Blood Loss 15 Findings Consistent with Post-Op Diagnosis Patient presents after a fall sustaining an intertrochanteric comminuted fracture of the right proximal femur the above findings noted fluoroscopically as well as intraoperative time of surgery. Specimens None Complications none Disposition Accompanied Patient To Recovery: No Disposition: Recovery Room Indications Patient presents with a intertrochanteric fracture right hip with displacement for IM troch nail right femur Description of Procedure After proper prepping draping and placement of fracture table fracture reduced into satisfactory alignment both AP and lateral planes utilizing fluoroscopic guidance traction was gently placed on the femur after well padded traction was placed on the foot subsequently after proper prepping and draping incision made over the region of proximal trochanteric area of the proximal femur and I am alignment guide was placed intramedullary portion of the femur and verified with AP and lateral planes with fluoroscopic guidance subsequently the most proximal portion of the femur was opened with a all a 10 mm intermediate length troponin was placed under direct position and confirmed on thorascopic guidance with AP and lateral planes subsequently a guide pin was placed in the center of the femoral head in both AP and lateral planes 105 mm trochanteric nail was placed without difficulty the distal femur was locked with 32 mm screw through the utilizing standard guide measured with Sterile Saline Solution and the Fascia Closed with #1 Vicryl Subcuticular 2-0 Vicryl Skin Was Closed Skin Clips Sterile Compressive Dressings Placed Patient Was Transferred to the Recovery from the Fracture Table to the Transport Bed Was Taken Recovery in Stable Condition. Report Dictated by Babatunde. I attest to the content of the Intraoperative Record and any orders documented therein. Any exceptions are noted below.
--- NOTE | 2018-06-08 13:53 | Anesthesiology Progress Note ---
Date of Service June 08, 2018 Anesthesia Post Procedure Vital Signs Vital Signs: Temp Pulse Pulse Pulse Pulse Pulse Resp 06/08/18 13:35 66 11 L 06/08/18 13:25 65 11 L 06/08/18 13:15 68 13 06/08/18 13:07 97.9 F 65 16 06/08/18 11:31 99.1 F 74 20 06/08/18 10:08 64 06/08/18 07:47 98.6 F 75 15 06/08/18 03:30 98.2 F 65 18 06/08/18 03:00 98.2 F 73 18 06/08/18 02:02 98.4 F 69 18 06/08/18 01:30 98.4 F 68 20 06/08/18 01:17 98.6 F 70 18 06/08/18 00:58 98.6 F 73 20 06/08/18 00:43 98.4 F 72 18 06/07/18 23:49 99.3 F 71 18 06/07/18 22:50 99.0 F 61 18 06/07/18 21:49 99.7 F H 65 18 06/07/18 21:19 99.0 F 61 18 06/07/18 20:49 99.5 F 71 18 06/07/18 20:34 99.3 F 72 18 06/07/18 20:32 97.7 F 97 H 20 06/07/18 20:17 99.9 F H 69 20 06/07/18 19:03 99.3 F 06/07/18 15:50 99.3 F 67 17 06/07/18 14:18 102.4 F H 72 18 BP BP Pulse Ox 06/08/18 13:35 167/66 H 100 06/08/18 13:25 178/65 H 100 06/08/18 13:15 179/71 H 100 06/08/18 13:07 179/58 H 99 06/08/18 11:31 184/70 H 95 06/08/18 10:08 172/67 H 06/08/18 07:47 186/68 H 97 06/08/18 03:30 144/60 H 95 06/08/18 03:00 149/65 H 95 06/08/18 02:02 154/63 H 96 06/08/18 01:30 137/65 95 06/08/18 01:17 143/60 H 95 06/08/18 00:58 158/55 H 96 06/08/18 00:43 151/62 H 97 06/07/18 23:49 181/70 H 97 06/07/18 22:50 159/56 H 96 06/07/18 21:49 161/54 H 97 06/07/18 21:19 159/56 H 96 06/07/18 20:49 147/56 H 94 06/07/18 20:34 163/60 H 97 06/07/18 20:32 161/54 H 97 06/07/18 20:17 153/55 H 95 06/07/18 19:03 06/07/18 15:50 121/64 94 06/07/18 14:18 128/62 93 Pain Intensity Right Hip: Pain Intensity: 0 Notes Mental Status: alert / awake / arousable and participated in evaluation Patient Amnestic to Procedure: Yes Nausea / Vomiting: adequately controlled Pain: adequately controlled Airway Patency, RR, SpO2: stable & adequate BP & HR: stable & adequate Hydration State: stable & adequate Neuraxial Anesthesia: was administered and sensory block is resolving Anesthetic Complications: no major complications apparent and Pt Satisfied with anesthetic care
--- NOTE | 2018-06-08 14:09 | Fluoroscopy Report ---
FL hip RT 2-3V CLINICAL HISTORY: RT IM NAIL FOR HIP FX COMPARISON STUDY: 06/06/2017 FLUOROSCOPY TIME: 2 minutes 38 seconds NUMBER OF FLUOROSCOPIC IMAGES: 7 FINDINGS: Pain is consistent with a right hip pinning combined with intramedullary mansoor placement of t he femur. Alignment appears anatomic. Trochanteric fracture right hip present. IMPRESSION: Anatomic alignment post right hip pain and right femoral intramedullary mansoor placement. The above report was generated using voice recognition software. It may contain grammatical, syntax or spelling errors. Electronically signed by: Sherman Petit M.D. 06/08/2018 2:08 PM
[2018-06-08] MEDS: LACTATED RINGER'S 1,000 ML IV SCH ×2 (14:30→18:17)
[2018-06-08] MEDS ORDERED: Nursing to Pharmacy Communication ONE (15:40)
[2018-06-08] MEDS: ACETAMINOPHEN 325 MG TAB PO PRN (16:28)
--- NOTE | 2018-06-08 18:26 | Hospitalist Progress Note ---
Date of Service June 08, 2018 Assessment & Plan (1) Fracture of right hip: (2) Fall: (3) CKD (chronic kidney disease), stage IV: (4) Diabetes: (5) HTN (hypertension): (6) Anemia: (7) Adnexal cyst: 87-year-old white female admitted on June 07, 2018 because of a right hip fracture secondary to fall Fracture of right hip: NPO ,ortho plan to have procedure Discussed with patient and family about risk and benefit, patient is in moderate risk for the procedure for the posterior cardiopulmonary complications, they fully understand and agreed to take on the risk mechanical fall, no loss of consciousness PT/OT will be ordered after surgery CKD, diabetic, hypertension, stable continue current medication follow-up labs, Possible acute blood loss anemia, from the fall and hip fracture, hemoglobin improved after transfusion, will continue follow-up, Adnexal cyst: DVT prophylaxis will discuss with orthopedic service Subjective Pain fairly controlled, in the right hip, Denies fever chills, denies chest pain palpitation, denied nausea vomiting abdominal pain diarrhea constipation, Denies dysuria urgency and frequency is, Physical Exam Vital Signs (Past 24 Hours): Last Vital Signs Temp 37.7 C H 06/08/18 17:18 Pulse 74 06/08/18 17:18 Resp 16 06/08/18 17:18 BP 141/64 H 06/08/18 17:18 Pulse Ox 93 06/08/18 17:18 Physical Exam: General Appearance: Frail chronically ill looking, WD/WN, no apparent distress, Eyes: normal inspection, PERRL, EOMI, sclerae normal ENT: normal ENT inspection, hearing grossly normal, pharynx normal Neck: supple, no adenopathy, thyroid normal, no JVD, no carotid bruits, trachea midline Respiratory/Chest: chest non-tender, normal breath sounds, no respiratory distress, no accessory muscle use, breath sounds, rales, wheezing Cardiovascular: Mild soft systolic murmur, regular rate, rhythm, no JVD, Abdomen: normal bowel sounds, non tender, soft, no organomegaly, Extremities: + limited ROM of extremitie in right hip no cyanosis and no clubbingnormal range of motion, non- tender, normal inspection, no pedal edema, n Neurologic/Psychiatric: hematologist II-XII nml as tested, no motor/sensory deficits, alert, normal mood/affect, oriented x 3 Skin: normal color, warm/dry, no rash Lymphatic: no adenopathy Results & Data Laboratory Results Laboratory Results - last 24 hr 06/05/18 06/07/18 06/07/18 15:32 20:29 23:52 Hgb Hct Sodium Potassium Chloride Carbon Dioxide Anion Gap BUN Creatinine Est Cr Clr Drug Dosing Est GFR ( Amer) Est GFR (Non-Af Amer) BUN/Creatinine Ratio Glucose POC Glucose 187 H 152 H Calcium Blood Type O Positive Antibody Screen NEGATIVE Crossmatch See Detail 06/08/18 06/08/18 06/08/18 06:06 06:52 06:52 Hgb 10.9 L D Hct 32.1 L Sodium 141 Potassium 3.9 Chloride 109 H Carbon Dioxide 22 Anion Gap 10.0 BUN 58 H Creatinine 2.25 H Est Cr Clr Drug Dosing 15.3 Est GFR ( Amer) 22.0 Est GFR (Non-Af Amer) 19.0 BUN/Creatinine Ratio 25.8 H Glucose 178 H POC Glucose 184 H Calcium 8.5 Blood Type Antibody Screen Crossmatch 06/08/18 06/08/18 13:15 14:24 Hgb Hct Sodium Potassium Chloride Carbon Dioxide Anion Gap BUN Creatinine Est Cr Clr Drug Dosing Est GFR ( Amer) Est GFR (Non-Af Amer) BUN/Creatinine Ratio Glucose POC Glucose 118 H 110 H Calcium Blood Type Antibody Screen Crossmatch (1) Fracture of right hip Encounter type: initial encounter Fracture type: closed Qualified Code(s): S72.001A - Fracture of unspecified part of neck of right femur, initial encounter for closed fracture (2) Fall Encounter type: initial encounter Qualified Code(s): W19.XXXA - Unspecified fall, initial encounter
[2018-06-08] MEDS: CEFAZOLIN 1000MG 1,000 MG/7.5 ML SYR IV SCH (21:01)
[2018-06-08] MEDS: DONEPEZIL HCL 5 MG TAB PO SCH (21:04)
[2018-06-08] MEDS: DOCUSATE SODIUM/SENNA 50/8.6MG TAB PO SCH (21:04)
[2018-06-09] MEDS: HydrALAZINE HCL 20 MG/ML VIAL IV PRN (01:49)
[2018-06-09] MEDS: CEFAZOLIN 1000MG 1,000 MG/7.5 ML SYR IV SCH (03:41)
[2018-06-09] MEDS: ACETAMINOPHEN 325 MG TAB PO PRN ×2 (04:00→14:32)
[2018-06-09 06:45] LABS: Basophils # (auto) 0.01 K/uL (0-0.2); Basophils % (auto) 0.1 %; Eosinophils # (auto) 0.03 K/uL (0-0.5); Eosinophils % (auto) 0.4 %; Hematocrit (blood only) 30.4 % (37-47); Hemoglobin 10.1 g/dL (12.0-16.0); Immature Granulocytes # (auto) 0.03 K/uL (0.00-0.02); Immature Granulocytes % (auto) 0.4 %; Lymphocytes # (auto) 1.07 K/uL (1.2-3.4); Mean Corpuscular Hgb Conc 33.2 g/dL (32-36); Mean Corpuscular Volume 89.7 fL (80-100); Monocytes # (auto) 0.56 K/uL (0.11-0.59); Monocytes % (auto) 6.8 %; Neutrophils # (auto) 6.54 K/uL (1.4-6.5); Neutrophils % (auto) 79.3 %; Platelet Count 178 K/uL (130-400); RDW Coefficient of Variation 14.3 % (11.5-14.5); RDW Standard Deviation 46.6 fL (36.4-46.3); Red Blood Count 3.39 M/uL (4.2-5.4); White Blood Count 8.24 K/uL (4.8-10.8)
[2018-06-09 07:25] LABS: BUN Creatinine Ratio 26.8 (10-20); Calcium 8.3 mg/dl (8.5-10.1); Creatinine Clr Calc Pharmacy 16.1 ml/min; Est GFR (African American) 23.4; Est GFR (Non-African American) 20.2; Potassium 3.5 mmol/L (3.5-5.1)
[2018-06-09] MEDS: METOPROLOL TARTRATE 50 MG TAB PO SCH ×2 (08:31→21:08)
[2018-06-09] MEDS: AMLODIPINE BESYLATE 5 MG TAB PO SCH (08:31)
[2018-06-09] MEDS ORDERED: AMLODIPINE BESYLATE 5 MG TAB PO ONE (09:04)
[2018-06-09] MEDS: INSULIN GLARGINE SOLOSTAR 100 UNITS/ML 3 ML PEN SQ SCH (09:32)
[2018-06-09] MEDS: HEPARIN SOD 5,000 UNIT/0.5 ML VIAL SQ SCH ×3 (09:34→21:10)
[2018-06-09] MEDS: INSULIN ASPART 100 UNITS/ML 3 ML PEN SC SCH ×4 (09:36→21:11)
--- NOTE | 2018-06-09 10:19 | Orthopedic Progress Note ---
Date of Service June 09, 2018 Assessment & Plan (1) Fracture of right hip: POD#1 right hip fracture ORIF -DVT prophylaxis-is currently on Heparin -Pain management -PT/OT-TTWB right lower extremity -D/C planning-likely will require discharge to SNF/rehab facility when stable -As per medicine AM labs-hemoglobin 10.1 this AM down from 10.9 yesterday. Subjective Patient seen in bed side chair. Doing well this morning. No complaints. Pain well controlled. Denies chest pain, sob, dizziness, n/v/d. Physical Exam Vital Signs (Past 24 Hours): Last Vital Signs Temp 37 C 06/09/18 08:14 Pulse 78 06/09/18 08:14 Resp 16 06/09/18 08:14 BP 182/71 H 06/09/18 09:30 Pulse Ox 98 06/09/18 08:14 Physical Exam: * Dressing c/d/i, toes mobile, no calf tenderness, sensation and n/v status intact (1) Fracture of right hip Encounter type: initial encounter Fracture type: closed Qualified Code(s): S72.001A - Fracture of unspecified part of neck of right femur, initial encounter for closed fracture
--- NOTE | 2018-06-09 13:28 | Anesthesiology Progress Note ---
Date of Service June 09, 2018 Anesthesia Post Procedure Vital Signs Vital Signs: Temp Pulse Pulse Pulse Resp BP Pulse Ox 06/09/18 11:33 36.5 C 69 16 131/64 99 06/09/18 10:50 96 06/09/18 10:38 138/67 06/09/18 10:03 06/09/18 09:30 182/71 H 06/09/18 08:14 37 C 78 16 188/76 H 98 06/09/18 05:13 37.4 C 06/09/18 03:55 38.4 C H 78 16 166/67 H 94 06/09/18 01:48 74 178/73 H 06/08/18 23:11 37.4 C 78 16 176/73 H 96 06/08/18 21:00 74 168/67 H 06/08/18 19:37 36.9 C 74 16 138/56 L 93 06/08/18 17:18 37.7 C H 74 16 141/64 H 93 06/08/18 16:15 37.1 C 77 16 193/67 H 95 06/08/18 15:15 36.4 C L 68 16 167/71 H 96 06/08/18 14:42 69 18 184/64 H 97 06/08/18 14:15 36.5 C 73 16 189/69 H 96 06/08/18 14:00 67 11 L 175/77 H 100 06/08/18 13:55 63 12 176/67 H 100 06/08/18 13:45 36.6 C 65 11 L 168/64 H 100 06/08/18 13:35 66 11 L 167/66 H 100 Pulse Ox 06/09/18 11:33 06/09/18 10:50 06/09/18 10:38 06/09/18 10:03 96 06/09/18 09:30 06/09/18 08:14 06/09/18 05:13 06/09/18 03:55 06/09/18 01:48 06/08/18 23:11 06/08/18 21:00 06/08/18 19:37 06/08/18 17:18 06/08/18 16:15 06/08/18 15:15 06/08/18 14:42 06/08/18 14:15 06/08/18 14:00 06/08/18 13:55 06/08/18 13:45 06/08/18 13:35 Pain Intensity Right Hip: Pain Intensity: 8 Notes Mental Status: alert / awake / arousable and participated in evaluation Patient Amnestic to Procedure: Yes Nausea / Vomiting: adequately controlled Pain: adequately controlled Airway Patency, RR, SpO2: stable & adequate BP & HR: stable & adequate Hydration State: stable & adequate Anesthetic Complications: no major complications apparent and Pt Satisfied with anesthetic care
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
[2018-06-09] MEDS: DONEPEZIL HCL 5 MG TAB PO SCH (21:08)
[2018-06-09] MEDS: DOCUSATE SODIUM/SENNA 50/8.6MG TAB PO SCH (21:08)
[2018-06-10] MEDS: HEPARIN SOD 5,000 UNIT/0.5 ML VIAL SQ SCH ×3 (06:28→21:39)
[2018-06-10 06:44] LABS: Basophils # (auto) 0.01 K/uL (0-0.2); Basophils % (auto) 0.2 %; Eosinophils # (auto) 0.08 K/uL (0-0.5); Eosinophils % (auto) 1.6 %; Hematocrit (blood only) 28.1 % (37-47); Hemoglobin 9.3 g/dL (12.0-16.0); Immature Granulocytes # (auto) 0.03 K/uL (0.00-0.02); Immature Granulocytes % (auto) 0.6 %; Lymphocytes # (auto) 0.88 K/uL (1.2-3.4); Lymphocytes % (auto) 17.2 %; Mean Corpuscular Hgb Conc 33.1 g/dL (32-36); Mean Corpuscular Volume 90.6 fL (80-100); Mean Platelet Volume 9.6 fL (7.4-10.4); Monocytes # (auto) 0.44 K/uL (0.11-0.59); Monocytes % (auto) 8.6 %; Neutrophils # (auto) 3.69 K/uL (1.4-6.5); Neutrophils % (auto) 71.8 %; Platelet Count 165 K/uL (130-400); RDW Standard Deviation 46.5 fL (36.4-46.3); White Blood Count 5.13 K/uL (4.8-10.8)
[2018-06-10 07:15] LABS: BUN Creatinine Ratio 27.2 (10-20); Calcium 7.9 mg/dl (8.5-10.1); Creatinine Clr Calc Pharmacy 14.4 ml/min; Est GFR (African American) 20.6; Est GFR (Non-African American) 17.7; Magnesium 1.9 mg/dl (1.8-2.4); Potassium 3.5 mmol/L (3.5-5.1)
[2018-06-10 07:16] LABS: Phosphorus 2.5 mg/dl (2.5-4.9)
[2018-06-10] MEDS: METOPROLOL TARTRATE 50 MG TAB PO SCH ×2 (08:47→21:39)
[2018-06-10] MEDS: AMLODIPINE BESYLATE 5 MG TAB PO SCH (08:48)
[2018-06-10] MEDS: INSULIN ASPART 100 UNITS/ML 3 ML PEN SC SCH ×4 (09:02→21:42)
[2018-06-10] MEDS: INSULIN GLARGINE SOLOSTAR 100 UNITS/ML 3 ML PEN SQ SCH (09:06)
--- NOTE | 2018-06-10 10:36 | Orthopedic Progress Note ---
Date of Service June 10, 2018 Assessment & Plan (1) Fracture of right hip: POD#2 right hip fracture ORIF -DVT prophylaxis-is currently on Heparin. May use Lovenox vs Heparin depending on renal status -Pain management -PT/OT-TTWB right lower extremity -D/C planning-likely will require discharge to SNF/rehab facility when stable -As per medicine Subjective Pt sitting up in chair this AM. No complaints this AM. Comfortable. States she feels well. No new complaints. States the hip is sore at times which she expects. Physical Exam Vital Signs (Past 24 Hours): Last Vital Signs Temp 36.8 C 06/10/18 07:24 Pulse 74 06/10/18 07:24 Resp 18 06/10/18 07:24 BP 167/69 H 06/10/18 07:24 Pulse Ox 94 06/10/18 07:24 Physical Exam: Incisions C/D/I. Thigh soft,NT. Calves soft, NT. NV intact. Results & Data Laboratory Results 06/10/18 06/10/18 06/10/18 Range/Units 08:04 06:31 06:31 WBC 5.13 (4.8-10.8) K/uL RBC 3.10 L (4.2-5.4) M/uL Hgb 9.3 L (12.0-16.0) g/dL Hct 28.1 L (37-47) % MCV 90.6 (80-100) fL MCH 30.0 (25-34) pg MCHC 33.1 (32-36) g/dL RDW Std Deviation 46.5 H (36.4-46.3) fL RDW Coeff of Kylah 14.0 (11.5-14.5) % Plt Count 165 (130-400) K/uL MPV 9.6 (7.4-10.4) fL Immature Gran % (Auto) 0.6 % Neut % (Auto) 71.8 % Lymph % (Auto) 17.2 % [place] % (Auto) 8.6 % Eos % (Auto) 1.6 % Baso % (Auto) 0.2 % Immature Gran # (Auto) 0.03 H (0.00-0.02) K/uL Neut # (Auto) 3.69 (1.4-6.5) K/uL Lymph # (Auto) 0.88 L (1.2-3.4) K/uL [place] # (Auto) 0.44 (0.11-0.59) K/uL Eos # (Auto) 0.08 (0-0.5) K/uL Baso # (Auto) 0.01 (0-0.2) K/uL Sodium 139 (136-145) mmol/L Potassium 3.5 (3.5-5.1) mmol/L Chloride 107 (98-107) mmol/L Carbon Dioxide 25 (21-32) mmol/L Anion Gap 7.0 (3-11) BUN 65 H (7-18) mg/dl Creatinine 2.38 H (0.6-1.2) mg/dl Est Cr Clr Drug Dosing 14.4 ml/min Est GFR ( Amer) 20.6 Est GFR (Non-Af Amer) 17.7 BUN/Creatinine Ratio 27.2 H (10-20) Glucose 121 H (70-99) mg/dl POC Glucose 128 H (70-99) Calcium 7.9 L (8.5-10.1) mg/dl Phosphorus 2.5 (2.5-4.9) mg/dl Magnesium 1.9 (1.8-2.4) mg/dl 06/09/18 06/09/18 06/09/18 Range/Units 20:31 16:59 12:13 WBC (4.8-10.8) K/uL RBC (4.2-5.4) M/uL Hgb (12.0-16.0) g/dL Hct (37-47) % MCV (80-100) fL MCH (25-34) pg MCHC (32-36) g/dL RDW Std Deviation (36.4-46.3) fL RDW Coeff of Kylah (11.5-14.5) % Plt Count (130-400) K/uL MPV (7.4-10.4) fL Immature Gran % (Auto) % Neut % (Auto) % Lymph % (Auto) % [place] % (Auto) % Eos % (Auto) % Baso % (Auto) % Immature Gran # (Auto) (0.00-0.02) K/uL Neut # (Auto) (1.4-6.5) K/uL Lymph # (Auto) (1.2-3.4) K/uL [place] # (Auto) (0.11-0.59) K/uL Eos # (Auto) (0-0.5) K/uL Baso # (Auto) (0-0.2) K/uL Sodium (136-145) mmol/L Potassium (3.5-5.1) mmol/L Chloride (98-107) mmol/L Carbon Dioxide (21-32) mmol/L Anion Gap (3-11) BUN (7-18) mg/dl Creatinine (0.6-1.2) mg/dl Est Cr Clr Drug Dosing ml/min Est GFR ( Amer) Est GFR (Non-Af Amer) BUN/Creatinine Ratio (10-20) Glucose (70-99) mg/dl POC Glucose 174 H 231 H 154 H (70-99) Calcium (8.5-10.1) mg/dl Phosphorus (2.5-4.9) mg/dl Magnesium (1.8-2.4) mg/dl (1) Fracture of right hip Encounter type: initial encounter Fracture type: closed Qualified Code(s): S72.001A - Fracture of unspecified part of neck of right femur, initial encounter for closed fracture
[2018-06-10] MEDS ORDERED: METOPROLOL TARTRATE 25 MG TAB PO STA (11:15)
--- NOTE | 2018-06-10 16:30 | Hospitalist Progress Note ---
Date of Service June 10, 2018 Assessment & Plan (1) Fracture of right hip: (2) Fall: (3) CKD (chronic kidney disease), stage IV: (4) Diabetes: (5) HTN (hypertension): (6) Anemia: (7) Adnexal cyst: 87-year-old white female admitted on June 07, 2018 because of a right hip fracture secondary to fall, Had a right hip nail done on June 08, 2018 Fracture of right hip: POD 2 s/p right hip fracture ORIF -DVT prophylaxis, will heparin subcu every 12,, per orthopedic total knee 4- week -PT/OT-TTWB right lower extremity -D/C planning: SNF/rehab facility mechanical fall prior to admission, no loss of consciousness Postop confusion, etiology unknown, may be because of her age and new involvement, resolved Possible mild dementia, Possible chronic kidney failure with 2.3, likely in baseline Accelerated hypertension blood pressure elevated, increased amlodipine from 5 to 10 mg p.o. 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 Review of Systems Constitutional: negative weakness, or fatigue Respiratory: no cough, sputum, wheezing, or dyspnea on exertion Cardiac: No chest pain, No orthopnea, No PND, Abdomen: No pain, No nausea, No vomiting, No diarrhea, Musculoskeletal: No joint pain, No muscle pain, No swelling, : No dysuria, No urinary frequency, No incontinence, No hematuria Neurologic: No paralysis, No weakness, No numbness/tingling, No vertigo, No balance problems Psychiatric: No depression symptoms, No anhedonism, Physical Exam Vital Signs (Past 24 Hours): Last Vital Signs Temp 37.9 C H 06/10/18 15:05 Pulse 70 06/10/18 15:05 Resp 16 06/10/18 15:05 BP 130/56 L 06/10/18 15:05 Pulse Ox 96 06/10/18 15:05 Physical Exam: General Appearance: Sitting up in chair, pleasant, conversational, WD/WN, no apparent distress, Eyes: normal inspection, PERRL, EOMI, sclerae normal ENT: normal ENT inspection, hearing grossly normal, pharynx normal Neck: supple, no adenopathy, thyroid normal, Respiratory/Chest: chest non-tender, normal breath sounds, no respiratory distress, no accessory muscle use, rales, wheezing Cardiovascular: Mild soft systolic murmur, regular rate, rhythm, no JVD, Abdomen: normal bowel sounds, non tender, soft, no organomegaly, Extremities: + limited ROM of extremitie in right hip, Local in dress no cyanosis and no clubbingnormal range of motion, 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44 Eos # (Auto) 0.08 Baso # (Auto) 0.01 Sodium Potassium Chloride Carbon Dioxide Anion Gap BUN Creatinine Est Cr Clr Drug Dosing Est GFR ( Amer) Est GFR (Non-Af Amer) BUN/Creatinine Ratio Glucose POC Glucose 231 H 174 H Calcium Phosphorus Magnesium 06/10/18 06/10/18 06/10/18 06:31 08:04 12:00 WBC RBC Hgb Hct MCV MCH MCHC RDW Std Deviation RDW Coeff of Kylah Plt Count MPV Immature Gran % (Auto) Neut % (Auto) Lymph % (Auto) [place] % (Auto) Eos % (Auto) Baso % (Auto) Immature Gran # (Auto) Neut # (Auto) Lymph # (Auto) [place] # (Auto) Eos # (Auto) Baso # (Auto) Sodium 139 Potassium 3.5 Chloride 107 Carbon Dioxide 25 Anion Gap 7.0 BUN 65 H Creatinine 2.38 H Est Cr Clr Drug Dosing 14.4 Est GFR ( Amer) 20.6 Est GFR (Non-Af Amer) 17.7 BUN/Creatinine Ratio 27.2 H Glucose 121 H POC Glucose 128 H 185 H Calcium 7.9 L Phosphorus 2.5 Magnesium 1.9 (1) Fracture of right hip Encounter type: initial encounter Fracture type: closed Qualified Code(s): S72.001A - Fracture of unspecified part of neck of right femur, initial encounter for closed fracture (2) Fall Encounter type: initial encounter Qualified Code(s): W19.XXXA - Unspecified fall, initial encounter
[2018-06-10] MEDS: DONEPEZIL HCL 5 MG TAB PO SCH (21:39)
[2018-06-10] MEDS: DOCUSATE SODIUM/SENNA 50/8.6MG TAB PO SCH (21:41)
[2018-06-11 07:10] LABS: Basophils # (auto) 0.01 K/uL (0-0.2); Basophils % (auto) 0.2 %; Eosinophils # (auto) 0.12 K/uL (0-0.5); Eosinophils % (auto) 2.3 %; Hematocrit (blood only) 27.3 % (37-47); Immature Granulocytes # (auto) 0.03 K/uL (0.00-0.02); Immature Granulocytes % (auto) 0.6 %; Lymphocytes # (auto) 1.47 K/uL (1.2-3.4); Lymphocytes % (auto) 28.7 %; Mean Corpuscular Volume 91.3 fL (80-100); Mean Platelet Volume 10.2 fL (7.4-10.4); Monocytes # (auto) 0.41 K/uL (0.11-0.59); Neutrophils # (auto) 3.09 K/uL (1.4-6.5); Neutrophils % (auto) 60.2 %; Platelet Count 183 K/uL (130-400); RDW Coefficient of Variation 13.9 % (11.5-14.5); RDW Standard Deviation 46.4 fL (36.4-46.3); Red Blood Count 2.99 M/uL (4.2-5.4); White Blood Count 5.13 K/uL (4.8-10.8)
--- NOTE | 2018-06-11 07:54 | Orthopedic Progress Note ---
Date of Service June 11, 2018 Assessment & Plan (1) Fracture of right hip: POD#3 right hip fracture ORIF -DVT prophylaxis-is currently on Heparin. May use Lovenox vs Heparin depending on renal status -Pain management -PT/OT-TTWB right lower extremity -D/C planning-likely will require discharge to SNF/rehab facility when stable -As per medicine Patient is orthopedically stable at this time. She is TTWB RLE. F/u with Dr Fine. 12-14 days post operatively. [phone] for appointment. Subjective Pt sitting up in bed this AM. No complaints this AM. Comfortable-pain off and on. No new complaints. States the hip is sore at times which she expects. Constitutional: as per Subjective / HPI Physical Exam Vital Signs (Past 24 Hours): Last Vital Signs Temp 37.1 C 06/11/18 07:29 Pulse 63 06/11/18 07:29 Resp 16 06/11/18 07:29 BP 182/69 H 06/11/18 07:29 Pulse Ox 95 06/11/18 07:29 Physical Exam: Dressing being changed. Incision c/d/i, well approximated. No drainage. No calf tenderness. Toes mobile. Sensation and n/v/ status intact. (1) Fracture of right hip Encounter type: initial encounter Fracture type: closed Qualified Code(s): S72.001A - Fracture of unspecified part of neck of right femur, initial enc ounter for closed fracture
[2018-06-11] MEDS: METOPROLOL TARTRATE 50 MG TAB PO SCH ×2 (09:06→21:11)
[2018-06-11] MEDS: AMLODIPINE BESYLATE 5 MG TAB PO SCH (09:07)
[2018-06-11] MEDS: INSULIN GLARGINE SOLOSTAR 100 UNITS/ML 3 ML PEN SQ SCH (09:10)
[2018-06-11] MEDS: HEPARIN SOD 5,000 UNIT/0.5 ML VIAL SQ SCH ×2 (09:11→21:08)
[2018-06-11] MEDS: INSULIN ASPART 100 UNITS/ML 3 ML PEN SC SCH ×4 (09:12→21:11)
[2018-06-11 09:50] LABS: BUN Creatinine Ratio 25.3 (10-20); Calcium 7.9 mg/dl (8.5-10.1); Creatinine Clr Calc Pharmacy 13.8 ml/min; Est GFR (African American) 19.5; Est GFR (Non-African American) 16.8; Potassium 4.1 mmol/L (3.5-5.1)
--- NOTE | 2018-06-11 14:42 | Hospitalist Progress Note ---
Date of Service June 11, 2018 Assessment & Plan (1) Fracture of right hip: (2) Fall: (3) CKD (chronic kidney disease), stage IV: (4) Diabetes: (5) HTN (hypertension): (6) Anemia: (7) Adnexal cyst: 87-year-old white female admitted on June 07, 2018 because of a right hip fracture secondary to fall, Had a right hip nail done on June 08, 2018 Fracture of right hip: POD 3 s/p right hip fracture ORIF -DVT prophylaxis, will heparin subcu every 12,, per orthopedic total knee 4- week -PT/OT-TTWB right lower extremity -D/C planning: SNF/rehab facility mechanical fall prior to admission, no loss of consciousness Postop confusion, etiology unknown, may be because of her age and new involvement, resolved Possible mild dementia, Possible acute on chronic kidney failure with 2.49, from 2.3, possible acute on chronic kidney failure, will continue monitor Accelerated hypertension blood pressure elevated, has increased amlodipine from 5 to 10 mg p.o. daily, has increasing metoprolol from 50-75 p.o. 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 Review of Systems Constitutional: negative weakness, or fatigue Respiratory: no cough, sputum, wheezing, or dyspnea on exertion Cardiac: No chest pain, No orthopnea, No PND, Abdomen: No pain, No nausea, No vomiting, No diarrhea, Musculoskeletal: No joint pain, No muscle pain, No swelling, : No dysuria, No urinary frequency, No incontinence, No hematuria Neurologic: No paralysis, No weakness, No numbness/tingling, No vertigo, No balance problems Psychiatric: No depression symptoms, No anhedonism, Physical Exam Vital Signs (Past 24 Hours): Last Vital Signs Temp 37.1 C 06/11/18 07:29 Pulse 63 06/11/18 07:29 Resp 16 06/11/18 07:29 BP 171/64 H 06/11/18 09:25 Pulse Ox 95 06/11/18 07:29 Physical Exam: General Appearance: pleasant, conversational, WD/WN, no apparent distress, Eyes: normal inspection, PERRL, EOMI, sclerae normal ENT: normal ENT inspection, hearing grossly normal, pharynx normal Neck: supple, no adenopathy, thyroid normal, Respiratory/Chest: chest non-tender, normal breath sounds, no respiratory distress, no accessory muscle use, rales, wheezing Cardiovascular: Mild soft systolic murmur, regular rate, rhythm, no JVD, Abdomen: normal bowel sounds, non tender, soft, no organomegaly, Extremities: Lower extremity no edema, Homans sign was negative, no cyanosis and no clubbingnormal range of motion, Neurologic/Psychiatric: vascular sonographer II-XII nml as tested, no motor/sensory deficits, alert, normal mood/affect, oriented Skin: Right hip incision looks good, Lymphatic: no adenopathy Results & Data Laboratory Results Laboratory Results - last 24 hr 06/10/18 06/10/18 06/11/18 16:54 20:42 06:34 WBC 5.13 RBC 2.99 L Hgb 9.0 L Hct 27.3 L MCV 91.3 MCH 30.1 MCHC 33.0 RDW Std Deviation 46.4 H RDW Coeff of Kylah 13.9 Plt Count 183 MPV 10.2 Immature Gran % (Auto) 0.6 Neut % (Auto) 60.2 Lymph % (Auto) 28.7 [place] % (Auto) 8.0 Eos % (Auto) 2.3 Baso % (Auto) 0.2 Immature Gran # (Auto) 0.03 H Neut # (Auto) 3.09 Lymph # (Auto) 1.47 [place] # (Auto) 0.41 Eos # (Auto) 0.12 Baso # (Auto) 0.01 Sodium Potassium Chloride Carbon Dioxide Anion Gap BUN Creatinine Est Cr Clr Drug Dosing Est GFR ( Amer) Est GFR (Non-Af Amer) BUN/Creatinine Ratio Glucose POC Glucose 140 H 190 H Calcium 06/11/18 06/11/18 06/11/18 06:34 08:12 12:08 WBC RBC Hgb Hct MCV MCH MCHC RDW Std Deviation RDW Coeff of Kylah Plt Count MPV Immature Gran % (Auto) Neut % (Auto) Lymph % (Auto) [place] % (Auto) Eos % (Auto) Baso % (Auto) Immature Gran # (Auto) Neut # (Auto) Lymph # (Auto) [place] # (Auto) Eos # (Auto) Baso # (Auto) Sodium 138 Potassium 4.1 D Chloride 107 Carbon Dioxide 25 Anion Gap 7.0 BUN 63 H Creatinine 2.49 H Est Cr Clr Drug Dosing 13.8 Est GFR ( Amer) 19.5 Est GFR (Non-Af Amer) 16.8 BUN/Creatinine Ratio 25.3 H Glucose 132 H POC Glucose 144 H 164 H Calcium 7.9 L (1) Fracture of right hip Encounter type: initial encounter Fracture type: closed Qualified Code(s): S72.001A - Fracture of unspecified part of neck of right femur, initial encounter for closed fracture (2) Fall Encounter type: initial encounter Qualified Code(s): W19.XXXA - Unspecified fall, initial encounter
[2018-06-11] MEDS: ACETAMINOPHEN 325 MG TAB PO PRN ×2 (15:17→22:16)
[2018-06-11] MEDS: DONEPEZIL HCL 5 MG TAB PO SCH (21:09)
[2018-06-11] MEDS: DOCUSATE SODIUM/SENNA 50/8.6MG TAB PO SCH (21:09)
[2018-06-12 06:37] LABS: Basophils # (auto) 0.01 K/uL (0-0.2); Basophils % (auto) 0.2 %; Eosinophils # (auto) 0.16 K/uL (0-0.5); Eosinophils % (auto) 3.2 %; Hematocrit (blood only) 28.3 % (37-47); Hemoglobin 9.2 g/dL (12.0-16.0); Immature Granulocytes # (auto) 0.04 K/uL (0.00-0.02); Immature Granulocytes % (auto) 0.8 %; Lymphocytes # (auto) 1.11 K/uL (1.2-3.4); Lymphocytes % (auto) 22.5 %; Mean Corpuscular Hgb Conc 32.5 g/dL (32-36); Mean Corpuscular Volume 91.9 fL (80-100); Monocytes # (auto) 0.44 K/uL (0.11-0.59); Monocytes % (auto) 8.9 %; Neutrophils # (auto) 3.17 K/uL (1.4-6.5); Neutrophils % (auto) 64.4 %; Platelet Count 197 K/uL (130-400); RDW Coefficient of Variation 13.5 % (11.5-14.5); RDW Standard Deviation 45.6 fL (36.4-46.3); Red Blood Count 3.08 M/uL (4.2-5.4); White Blood Count 4.93 K/uL (4.8-10.8)
[2018-06-12] MEDS: HEPARIN SOD 5,000 UNIT/0.5 ML VIAL SQ SCH ×2 (09:58→21:13)
[2018-06-12] MEDS: INSULIN ASPART 100 UNITS/ML 3 ML PEN SC SCH ×4 (09:58→21:12)
[2018-06-12] MEDS: INSULIN GLARGINE SOLOSTAR 100 UNITS/ML 3 ML PEN SQ SCH (09:59)
[2018-06-12] MEDS: METOPROLOL TARTRATE 50 MG TAB PO SCH ×2 (10:04→21:07)
[2018-06-12] MEDS: AMLODIPINE BESYLATE 5 MG TAB PO SCH (10:05)
--- NOTE | 2018-06-12 17:04 | Hospitalist Progress Note ---
Date of Service June 12, 2018 Assessment & Plan (1) Fracture of right hip: (2) Fall: (3) CKD (chronic kidney disease), stage IV: (4) Diabetes: (5) HTN (hypertension): (6) Anemia: (7) Adnexal cyst: 87-year-old white female admitted on June 07, 2018 because of a right hip fracture secondary to fall, Had a right hip nail done on June 08, 2018 Fracture of right hip: Post op of right hip fracture ORIF -DVT prophylaxis, will heparin subcu every 12,, per orthopedic total knee 4- week -PT/OT-TTWB right lower extremity -D/C planning: SNF/rehab facility mechanical fall prior to admission, no loss of consciousness Postop confusion, etiology unknown, may be because of her age and new involvement, resolved Possible mild dementia, Possible acute on chronic kidney failure with cr 2.49, from 2.3, possible acute on chronic kidney failure, will continue monitor Accelerated hypertension blood pressure elevated, has increased amlodipine from 5 to 10 mg p.o. daily, has increasing metoprolol from 50 yo 75 p.o. 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 Review of Systems Constitutional: negative weakness, or fatigue Respiratory: no cough, sputum, wheezing, or dyspnea on exertion Cardiac: No chest pain, No orthopnea, No PND, Abdomen: No pain, No nausea, No vomiting, No diarrhea, Musculoskeletal: No joint pain, No muscle pain, No swelling, : No dysuria, No urinary frequency, No incontinence, No hematuria Neurologic: No paralysis, No weakness, No numbness/tingling, No vertigo, No balance problems Psychiatric: No depression symptoms, No anhedonism, Physical Exam Vital Signs (Past 24 Hours): Last Vital Signs Temp 36.9 C 06/12/18 14:57 Pulse 64 06/12/18 14:57 Resp 17 06/12/18 14:57 BP 151/70 H 06/12/18 14:57 Pulse Ox 99 06/12/18 14:57 Physical Exam: General Appearance: pleasant, conversational, WD/WN, no apparent distress, Eyes: normal inspection, PERRL, EOMI, sclerae normal ENT: normal ENT inspection, hearing grossly normal, pharynx normal Neck: supple, no adenopathy, thyroid normal, Respiratory/Chest: chest non-tender, normal breath sounds, no respiratory distress, no accessory muscle use, no rales, wheezing Cardiovascular: Mild soft systolic murmur, regular rate, rhythm, no JVD, Abdomen: normal bowel sounds, non tender, soft, no organomegaly, Extremities: Lower extremity no edema, Neurologic/Psychiatric: recreational counselor II-XII nml as tested, no motor/sensory deficits, alert, normal mood/affect, oriented Skin: Right hip incision looks good , in dress Results & Data Laboratory Results Laboratory Results - last 24 hr 06/11/18 06/12/18 06/12/18 20:53 06:03 08:14 WBC 4.93 RBC 3.08 L Hgb 9.2 L Hct 28.3 L MCV 91.9 MCH 29.9 MCHC 32.5 RDW Std Deviation 45.6 RDW Coeff of Kylah 13.5 Plt Count 197 MPV 10.0 Immature Gran % (Auto) 0.8 Neut % (Auto) 64.4 Lymph % (Auto) 22.5 [place] % (Auto) 8.9 Eos % (Auto) 3.2 Baso % (Auto) 0.2 Immature Gran # (Auto) 0.04 H Neut # (Auto) 3.17 Lymph # (Auto) 1.11 L [place] # (Auto) 0.44 Eos # (Auto) 0.16 Baso # (Auto) 0.01 POC Glucose 200 H 159 H 06/12/18 12:02 WBC RBC Hgb Hct MCV MCH MCHC RDW Std Deviation RDW Coeff of Kylah Plt Count MPV Immature Gran % (Auto) Neut % (Auto) Lymph % (Auto) [place] % (Auto) Eos % (Auto) Baso % (Auto) Immature Gran # (Auto) Neut # (Auto) Lymph # (Auto) [place] # (Auto) Eos # (Auto) Baso # (Auto) POC Glucose 231 H (1) Fracture of right hip Encounter type: initial encounter Fracture type: closed Qualified Code(s): S72.001A - Fracture of unspecified part of neck of right femur, initial encounter for closed fracture (2) Fall Encounter type: initial encounter Qualified Code(s): W19.XXXA - Unspecified fall, initial encounter
[2018-06-12] MEDS: DONEPEZIL HCL 5 MG TAB PO SCH (21:07)
[2018-06-12] MEDS: DOCUSATE SODIUM/SENNA 50/8.6MG TAB PO SCH (22:33)
[2018-06-13 07:03] LABS: BUN Creatinine Ratio 26.5 (10-20); Calcium 8.4 mg/dl (8.5-10.1); Creatinine Clr Calc Pharmacy 15.9 ml/min; Est GFR (African American) 23.1; Est GFR (Non-African American) 19.9; Magnesium 2.4 mg/dl (1.8-2.4)
[2018-06-13] MEDS: INSULIN GLARGINE SOLOSTAR 100 UNITS/ML 3 ML PEN SQ SCH (08:21)
[2018-06-13] MEDS: INSULIN ASPART 100 UNITS/ML 3 ML PEN SC SCH ×4 (08:23→21:17)
[2018-06-13] MEDS: HEPARIN SOD 5,000 UNIT/0.5 ML VIAL SQ SCH ×2 (08:25→21:18)
[2018-06-13] MEDS: AMLODIPINE BESYLATE 5 MG TAB PO SCH (08:36)
[2018-06-13] MEDS: METOPROLOL TARTRATE 50 MG TAB PO SCH ×2 (09:39→21:15)
--- NOTE | 2018-06-13 15:49 | Hospitalist Progress Note ---
Date of Service June 13, 2018 Assessment & Plan (1) Fracture of right hip: (2) Fall: (3) CKD (chronic kidney disease), stage IV: (4) Diabetes: (5) HTN (hypertension): (6) Anemia: (7) Adnexal cyst: 87-year-old white female admitted on June 07, 2018 because of a right hip fracture secondary to fall, Had a right hip nail done on June 08, 2018 Fracture of right hip: Post op of right hip fracture ORIF -DVT prophylaxis, will heparin subcu every 12,, per orthopedic total knee 4- week from June 08, 2018 -PT/OT-TTWB right lower extremity -D/C planning: SNF facility mechanical fall prior to admission, no loss of consciousness Possible mild dementia, Possible acute on chronic kidney failure , She is improving, with cr2.16 from 2.49, from 2.3, possible acute on chronic kidney failure, will continue monitor Accelerated hypertension blood pressure elevated, Blood pressure better controlled after increasingamlodipine from 5 to 10 mg p.o. daily, has increasing metoprolol from 50 yo 75 p.o. 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/o Review of Systems Constitutional: negative weakness, or fatigue Respiratory: no cough, sputum, wheezing, or dyspnea on exertion Cardiac: No chest pain, No orthopnea, No PND, Abdomen: No pain, No nausea, No vomiting, No diarrhea, Musculoskeletal: No joint pain, No muscle pain, No swelling, : No dysuria, No urinary frequency, No incontinence, No hematuria Neurologic: No paralysis, No weakness, No numbness/tingling, No vertigo, No balance problems Psychiatric: No depression symptoms, No anhedonism, Physical Exam Vital Signs (Past 24 Hours): Last Vital Signs Temp 36.8 C 06/13/18 15:10 Pulse 65 06/13/18 15:10 Resp 18 06/13/18 15:10 BP 144/72 H 03/04/19 15:10 Pulse Ox 97 06/13/18 15:10 Physical Exam: General Appearance: pleasant,WD/WN, no apparent distress, Eyes: normal inspection, PERRL, EOMI, sclerae normal ENT: normal ENT inspection, hearing grossly normal, Neck: supple, no adenopathy, thyroid normal, Respiratory/Chest: chest non-tender, normal breath sounds, no respiratory distress, no accessory muscle use, no rales, wheezing Cardiovascular: Mild soft systolic murmur, regular rate, rhythm, no JVD, Abdomen: normal bowel sounds, non tender, soft, Extremities: Lower extremity no edema, Neurologic/Psychiatric: veterinary technician instructor II-XII nml as tested, no motor/sensory deficits, alert, normal mood/affect, oriented Skin: Right hip incision looks good , in dress Results & Data Laboratory Results Laboratory Results - last 24 hr 06/12/18 06/12/18 06/13/18 17:06 20:23 06:18 Sodium 139 Potassium 4.0 Chloride 107 Carbon Dioxide 24 Anion Gap 8.0 BUN 57 H Creatinine 2.16 H D Est Cr Clr Drug Dosing 15.9 Est GFR ( Amer) 23.1 Est GFR (Non-Af Amer) 19.9 BUN/Creatinine Ratio 26.5 H Glucose 141 H POC Glucose 112 H 203 H Calcium 8.4 L Magnesium 2.4 06/13/18 06/13/18 06/13/18 06:46 07:55 12:23 Sodium Potassium Chloride Carbon Dioxide Anion Gap BUN Creatinine Est Cr Clr Drug Dosing Est GFR ( Amer) Est GFR (Non-Af Amer) BUN/Creatinine Ratio Glucose POC Glucose 160 H 135 H 136 H Calcium Magnesium (1) Fracture of right hip Encounter type: initial encounter Fracture type: closed Qualified Code(s): S72.001A - Fracture of unspecified part of neck of right femur, initial encounter for closed fracture (2) Fall Encounter type: initial encounter Qualified Code(s): W19.XXXA - Unspecified fall, initial encounter
[2018-06-13] MEDS: DONEPEZIL HCL 5 MG TAB PO SCH (21:15)
[2018-06-13] MEDS: DOCUSATE SODIUM/SENNA 50/8.6MG TAB PO SCH ×2 (21:30→21:35)
[2018-06-14 07:19] VITALS: TEMP 98.4
[2018-06-14 08:03] VITALS: O2SAT 97
[2018-06-14] MEDS: METOPROLOL TARTRATE 50 MG TAB PO SCH (08:26)
[2018-06-14] MEDS: AMLODIPINE BESYLATE 5 MG TAB PO SCH (08:26)
[2018-06-14] MEDS: HEPARIN SOD 5,000 UNIT/0.5 ML VIAL SQ SCH (08:58)
[2018-06-14] MEDS: INSULIN ASPART 100 UNITS/ML 3 ML PEN SC SCH ×2 (08:59→11:56)
[2018-06-14] MEDS: INSULIN GLARGINE SOLOSTAR 100 UNITS/ML 3 ML PEN SQ SCH (08:59)
[2018-06-14 12:06] VITALS: BP 144/72; PULSE 61
--- NOTE | 2018-06-14 17:47 | Discharge Summary ---
Date of Service June 14, 2018 Admission HPI Per Admitting Provider 87 yo female with history of DM, CKD stage IV, pacemaker who presents to the ED after falling at home and suffering a right hip fracture. She says she was walking along a narrow sidewalk beside her house. She must have tripped and fell on her right side, but she cannot recall all the details of how she fell. She did not lose consciousness. She was down on the ground and had severe pain in right hip. No one was with her and she was calling out for help. She is unsure how long she was down on the ground. She was quite cold, only had a sweatshirt on because she was not planning on being outside for long. She was found by neighbors and EMS brought her to the ED. Labs showed normal CBC, CKD with Cr of 2.5, electrolytes stable, troponin negative. EKG was paced. CXR was normal. Right hip x-ray showed an intertrochanteric fracture on the right side. Ortho was contacted, they plan to fix the fracture tomorrow. Patient denies any chest pain or palpitations. She denies shortness of breath. Denies fever, chills, sweats, fatigue. She says she was feeling well prior to falling. Her only comlaints now are right hip pain and feeling cold from being outside for some time. Principal Diagnosis no Discharge Data Allergies Allergy/AdvReac Type Severity Reaction Status Date / Time latex Allergy Mild Rash Verified 06/07/18 13:52 lovastatin AdvReac Mild "doesn't Verified 06/07/18 13:52 feel well" silicone AdvReac Mild Hives Verified 06/07/18 13:52 Consultations 06/05/18 18:29 Consult Anesthesiology Routine Consult Case Management - Discharge Planning Routine Consult Orthopedic Surgery Routine 06/08/18 12:22 Consult Case Management - Discharge Planning Routine Procedures Performed Operation Date: 06/07/18 08:45 <No data on this case meets the specified criteria> Operation Date: 06/08/18 07:00 Actual Procedures p Intramedullary Nailing Right Femur(Right) - Aron Fine DO Ordered Studies 06/06/18 16:46 CT hip RT wo con Urgent 06/08/18 11:00 FL fluoroscopy <1hr Routine FL hip RT 2-3V Routine Hospital Course (1) Fracture of right hip: (2) Fall: (3) CKD (chronic kidney disease), stage IV: (4) Diabetes: (5) HTN (hypertension): (6) Anemia: (7) Adnexal cyst: 87-year-old white female admitted on June 07, 2018 because of a right hip fracture secondary to fall, Had a right hip nail done on June 08, 2018 Fracture of right hip: Post op of right hip fracture ORIF -DVT prophylaxis, will heparin subcu every 12,, per orthopedic total knee 4- week from June 08, 2018 -PT/OT-TTWB right lower extremity -D/C planning: SNF facility mechanical fall prior to admission, no loss of consciousness Possible mild dementia, Possible acute on chronic kidney failure , She is improving, with cr2.16 from 2 .49, from 2.3, possible acute on chronic kidney failure, will continue monitor Accelerated hypertension blood pressure elevated, Blood pressure better controlled after increasingamlodipine from 5 to 10 mg p.o. daily, has increasing metoprolol from 50 yo 75 p.o. every 12, Possible acute blood loss anemia, from the fall and hip fracture, hemoglobin improved after transfusion, will continue follow-up, Adnexal cyst: Stable, DVT prophylaxis will discuss with orthopedic service, will be better in heparin subcu every 12 because of renal function Discussed with the insurance company, they denied rehab but okay to halfway Medically ready to discharge Subjective at discharge Blood pressure still elevated , however, sitting on the chair, conversational, doing well, has been eating voiding good, no c/o Review of Systems at discharge Constitutional: negative weakness, or fatigue Respiratory: no cough, sputum, wheezing, or dyspnea on exertion Cardiac: No chest pain, No orthopnea, No PND, Abdomen: No pain, No nausea, No vomiting, No diarrhea, Musculoskeletal: No joint pain, No muscle pain, No swelling, : No dysuria, No urinary frequency, No incontinence, No hematuria Neurologic: No paralysis, No weakness, No numbness/tingling, No vertigo, No balance problems Psychiatric: No depression symptoms, No anhedonism, Physical Exam at discharge General Appearance: pleasant, conversational, WD/WN, no apparent distress, bedside, Eyes: normal inspection, PERRL, EOMI, sclerae normal ENT: normal ENT inspection, hearing grossly normal, Neck: supple, no adenopathy, thyroid normal, Respiratory/Chest: chest non-tender, normal breath sounds, no respiratory distress, no accessory muscle use, no rales, wheezing Cardiovascular: Mild soft systolic murmur, regular rate, rhythm, no JVD, Abdomen: normal bowel sounds, non tender, soft, Extremities: Lower extremity no edema, Neurologic/Psychiatric: rehab director II-XII nml as tested, no motor/sensory deficits, alert, normal mood/affect, oriented Skin: Right hip incision looks good , in dress Lab data upon discharge: Laboratory Results - last 24 hr 06/13/18 06/14/18 06/14/18 20:30 08:20 11:45 POC Glucose 263 H 150 H 196 H Total Time Total Time Spent Total Time Spent (In Minutes): 31 Discharge Plan Discharge Items Patient Disposition: Transfer [facility] Fac Reason For Visit: RIGHT HIP FRACTURE Discharge Diagnosis: Fracture of right hip: Condition: Fair Discharge Goals: Decrease discomfort, Diagnostic testing, Improve disease control, Improve function, Specific goals and Therapeutic intervention Activity: As commented below Weightbearing: Right toe touch Weightbearing Comment: with walker Non-emergency contact: Primary Care Provider Call non-emergency contact if: you have any medication questions Diet: Carb Consistent or DM2 and Heart Healthy Addtl Provider Instructions: you have Fracture of right hip: DVT prophylaxis, will heparin subcu every 12,, per orthopedic total knee 4-week from June 08, 2018 Possible mild dementia, prevent lost , no wander by self you have acute on chronic kidney failure, you need to follow up with pcp you have Accelerated hypertension blood pressure elevated, new med includes amlodipine 10 mg p.o. daily, has increasing metoprolol from 50 yo 75 p.o. every 12hr,you need to follow up with pcp you need to follow up with your primary care physician in 1 week, - take medication as instructed, never overdose or any misuse, or take with alcohol, because misuse of medicine may cause organ damage or , call me, or your primary care physician if have questions of discharge medicaitons. - call your primary care physician, or go to local emergency room if has any fever/chill, chest pain, shortness of breathing, nausea/vomiting/abdominal pain, facial droop/slurry speech/local weakness, or if has any questions. - fall precaution - diet as instructed - you need to follow up with your subspecialist, such as Orthopedic service [facility] DISCHARGE INSTRUCTIONS: HIP FRACTURE SELF CARE INSTRUCTIONS: A. You are to ambulate with a walker or crutches for approximately 6 weeks. B. You are TOE TOUCH WEIGHT BEARING on your operative lower extremity for at least 6 weeks. C. Wear low heeled shoes with non-slip soles D. Be sure that your floors are free of things that could trip you throw rugs, electrical cords, and small objects. Avoid wet and waxed floors, especially with crutches/walker/cane. E. Try to walk several times a day with rest periods between. F. You may shower 48 hours after surgery and get the incision area wet, but DO NOT soak or submerge incision area in water. (No baths, swimming pools, hot tubs) G. You may have a large, band-aid like dressing over your incision (Aquacel). This will remain on your incision for 7 days, and then can be removed. You CAN shower with this on. If incision is leaking through the dressing, please call the office . H. Do NOT apply soap or any ointment/lotions directly over incision. I. You may use ice as needed to operative site. SPECIAL CARE INSTRUCTIONS: VERY IMPORTANT TO READ AND REVIEW A. You may be at risk for phlebitis or blood clots. a. Wear surgical stockings (LANE hose) for 2 weeks after surgery to improve circulation and reduce swelling. b. Take LOVENOX OR HEPARIN SQ for 4 weeks or as directed. This is your blood thinner. c. If you are on Coumadin- you will have daily/weekly blood work to monitor your levels. This will be done by either your family physician/suction roller (if you are on Coumadin chronically) versus your orthopedic surgeon. Expect a phone call the day of or the day after your blood work is drawn to adjust your dose accordingly. B. There are a few signs you need to watch for after you are home. Call [facility] at [phone] if you experience any of the following: a. If you have a temperature of 101 degrees or higher. b. Sudden increase in pain in your hip not relieved by rest or pain medication. c. Any fluid or drainage from the incision; redness of the incision. d. Shortness of breath or chest pain. C. Call your physician if: a. Temperature is greater than 101 degrees (F). b. Pain is not relieved by prescribed pain medications. c. Increase drainage or redness from incision. d. Unanswered questions or concerns. D. Pain Medication: a. You will be prescribed pain medication upon discharge that should last till your first post-operative appointment. b. If you experience nausea and/or skin rash, discontinue this medication and contact our office for an alternative medication. c. Caution- narcotic pain medication can cause const ipation. FOLLOW UP VISIT: Please call [facility] at [phone] to schedule a follow up appointment with Dr Fine 10-14 days from the date of your surgery date. Prescriptions: New acetaminophen [Mapap (acetaminophen)] 325 mg Tablet 650 mg PO Q6H PRN (Reason: pain) 14 Days Qty: 20 RF: 0 amlodipine [Norvasc] 5 mg Tablet 10 mg PO QAM 30 Days Qty: 60 RF: 0 heparin, porcine (PF) 5,000 unit/0.5 mL Syringe 5,000 unit subcut Q12 Qty: 28 RF: 0 Continued donepezil 5 mg Tablet 5 mg PO HS RF: 0 insulin glargine [Lantus U-100 Insulin] 100 unit/mL Solution 12 unit SUBCUT QAM RF: 0 amlodipine 5 mg Tablet 5 mg PO QAM RF: 0 furosemide [Lasix] 20 mg Tablet 20 mg PO DAILY RF: 0 Vitamin C With Iron 1 tab PO DAILY RF: 0 Changed metoprolol tartrate [Lopressor] 50 mg Tablet 75 mg PO BID Qty: 0 RF: 0 Stand-Alone Forms: [facility] Discharge Orders: Discharge Order (Routine); Ordered 06/14/18 Ordered By: Kalpesh Stevens Skilled Items Patient informed of condition?: Yes DNR: No Discharge Level of Care: Skilled Communicable Disease: No Discharge Prognosis: Stable Admission Data Admit Date/Time: 06/05/18 16:43 Attending Provider: Kalpesh Stevens Admit Provider: Amandeep Sharp Primary Care Provider: Isaac Sharp Other Providers: Amandeep Sharp ; Jim Millard ; Dudley Basilio Service: Medical Other Interventions: Discharge Summary Assessment (RN) Last Done: 06/14/18 12:03 DC Date/Time DO NOT enter until pt leaves facility: 06/14/18 12:40
== END 2018-06-14 12:40 | DRG 481 ==
LOC: ED 13:43 → SUATTDRO 16:43 → 3N 16:43
DX: I12.9 Hypertensive chronic kidney disease with stage 1 through stage 4 chronic kidney disease, or unspecified chronic kidney disease; W18.31XA Fall on same level due to stepping on an object, initial encounter; Y92.480 Sidewalk as the place of occurrence of the external cause; N18.4 Chronic kidney disease, stage 4 (severe); N17.9 Acute kidney failure, unspecified; Z91.040 Latex allergy status; Z96.659 Presence of unspecified artificial knee joint; F03.90 Unspecified dementia, unspecified severity, without behavioral disturbance, psychotic disturbance, mood disturbance, and anxiety; Z98.890 Other specified postprocedural states; S72.101A Unspecified trochanteric fracture of right femur, initial encounter for closed fracture; Y93.01 Activity, walking, marching and hiking; E11.22 Type 2 diabetes mellitus with diabetic chronic kidney disease; D62 Acute posthemorrhagic anemia; Z79.4 Long term (current) use of insulin; Z95.0 Presence of cardiac pacemaker

== ENCOUNTER 2019-12-26 09:36 | Inpatient (IN) ==
[2019-12-26] MEDS ORDERED: ACETAMINOPHEN 1,000 MG/100 ML VIAL IV STA (09:51)
[2019-12-26] MEDS ORDERED: SODIUM CHLORIDE 0.9% 1000ML 500 ML IV ONE (09:51)
[2019-12-26] MEDS ORDERED: ONDANSETRON INJ 2 MG/ML 2 ML VIAL IV STA (09:51)
--- NOTE | 2019-12-26 09:59 | Emergency Department Note ---
Impression & Plan Fever, Vomiting, AMS (altered mental status), Acute kidney injury, Aspiration pneumonia ED Provider Note INFORMANT: EMS, family ED PROVIDER(S): Bob Davenport MD CHIEF COMPLAINT: Vomiting PLAN: Disposition: Admitted Condition: Good MEDICAL DECISION MAKING: Patient presented because of vomiting. Family added to the history that she did have a fall and vomiting episode 2 days ago. She was suspected of aspirating by her caregiver. The patient had a work-up performed. Her CT imaging of her head was negative. Her CT imaging of the abdomen pelvis did reveal some constipation, proctitis, bibasilar consolidation and a right adnexal mass that was previously seen. Her cover testing was negative. The patient had an unremarkable CBC and coags except for anemia which has worsened. Chemistry panel did reveal NUZHAT with a creatinine bumping from 2.2-3.2. LFTs, troponin and lactate were negative. Urinalysis was unremarkable as well. Cultures were obtained. Given the concern for aspiration and fever the patient was hydrated, given IV Tylenol, and treated with IV clindamycin. She will need further management in the hospital. Family was updated. The patient was reassessed and was stable. Consultation was made with the [facility]. The patient was evaluated in the ER and admitted for further management. Triage Nursing notes reviewed and agree them. Additional history obtained from EMS and family. Vital Signs: reviewed and remarkable for fever. Differential diagnosis: Infection, hypoglycemia, electrolyte abnormalities, overdose, toxicologic, cardiac sources, intracerebral event, neurologic, trauma, as well as other pathologies. Diagnostics interpreted by me: ECG: Twelve-lead ECG reveals a paced rhythm at 74 bpm. There is no evidence of PVCs. No obvious ST elevation. Poor baseline data present. Cardiac Monitoring: Cardiac monitoring ordered by me: The patient was placed on continuous cardiac monitoring and observed. It revealed a paced rhythm at 78 beats per minute without ectopy or evidence of dysrhythmia. Imaging studies: Chest x-ray. Findings: A chest x-ray was performed and revealed no pneumothorax, effusion, pulmonary edema, free air under the diaphragm, or wide mediastinum. Basilar consolidation present. Head CT: A noncontrast CT scan of the head was performed and was negative for tumor, fracture, intracranial hemorrhage, or other acute pathology. CT scan of the abdomen pelvis as above, notably bibasilar consolidation, constipation, and proctitis. I refer you to the EMR for further details. Consultation(s): [facility] service, admitted under Dr. Porter HPI: The patient is a 89 year old female who presents to the Emergency Room because of vomiting. This started this morning. The patient's family found her in bed with vomit. She seemed confused. EMS noted that she wears oxygen. She was transported to the ER uneventfully. Apparently the patient has a history of dementia. She is not answering questions but appears in no distress. History is limited secondary to the patient's dementia and altered mental status. ROS: Unobtainable secondary to medical acuity. PAST MEDICAL HISTORY:See Below, dementia, diabetes, hypertension PAST SURGICAL HISTORY:See Below, pacemaker FAMILY HISTORY:See Below SOCIAL HISTORY:See Below, lives alone HOME MEDICATIONS:See Below ALLERGIES:See Below VITALS:See Below PHYSICAL EXAMINATION: GENERAL: Awake, tired-appearing, in no distress HENT: Normocephalic, atraumatic. Oropharynx unremarkable. EYES: Normal conjunctiva. Sclera non-icteric. NECK: Inspection normal. Non-tender. Supple. No nuchal rigidity. FROM. No masses. RESPIRATORY: Clear to auscultation. No wheezes. No rales. Normal respiratory effort. CARDIAC: Normal rate. Normal rhythm. No murmurs. No rubs. Extremities warm and well perfused. Pulses equal. No JVD. GI: Soft, non-distended. No tenderness to palpation. No rebound or guarding. No masses. RECTAL: Deferred. MUSCULOSKELETAL: Atraumatic. Chest examination reveals no tenderness. Pacemaker in the upper chest. There is no CVA tenderness to palpation. No joint edema. LOWER EXTREMITIES: Calves are equal size bilaterally and non-tender. Trace edema. No discoloration. NEURO: Altered sensorium. Tracking examiner. Not following commands. SKIN: No rash or jaundice noted. Bob Davenport MD Past Med/Surg History Medical History (Updated 12/26/19 @ 17:42 by Bob Davenport MD) Acute worsening of stage 4 chronic kidney disease Adnexal cyst Anemia Chronic kidney disease, stage 4 (severe) CKD (chronic kidney disease), stage IV Dementia Diabetes HTN (hypertension) Hypertension Pacemaker Vitamin D deficiency Surgical History (Updated 12/26/19 @ 14:32 by KHRIS JonesC) History of repair of right hip joint History of right hip fracture History of total left knee replacement (TKR) Hx of cardiac pacemaker Family History Other Family history unobtainable Social History (Updated 12/26/19 @ 14:33 by Meghan Corral PA-C) Smoking Status: Never smoker Second Hand Exposure: No; Hx Alcohol Use: No Hx Substance Use: No Preferred Language: Latvian Communication Ability: Impaired Communication Ability Comment: Secondary to cognition Security Ambassador Required: No Beliefs That Will Affect Care: None marital status: / Current Living Situation: Alone Current Living Situation Comment: Caregivers around the clock current occupational status: retired Other Information That Helps Us Care for You: No Feels Safe at Home: Yes Safety Concerns: Feels Safe At This Time Allergies Allergies Allergy/AdvReac Type Severity Reaction Status Date / Time latex Allergy Mild Rash Verified 12/26/19 12:43 lovastatin AdvReac Mild "doesn't Verified 12/26/19 12:43 feel well" silicone AdvReac Mild Hives Verified 12/26/19 12:43 cephalexin [From Keflex] AdvReac HIVES Verified 12/26/19 12:43 Home Meds Home Medications Medication Instructions Recorded Confirmed insulin glargine 100 unit/mL 10 units SUBCUT QAM ml 12/30/18 12/26/19 subcutaneous solution escitalopram oxalate 5 mg tablet 5 mg PO QAM 09/15/19 12/26/19 amlodipine 5 mg PO DAILY 12/26/19 12/26/19 cranberry extract-vitamin C [Azo 1 cap PO BID 12/26/19 12/26/19 Cranberry Plus Vit C] furosemide 20 mg PO DAILY 12/26/19 12/26/19 metoprolol tartrate 25 mg PO PM 12/26/19 12/26/19 metoprolol tartrate 50 mg PO DAILY 12/26/19 12/26/19 trazodone 50 mg PO HS 12/26/19 12/26/19 Results & Data (ED) Vital Signs Vital Signs - 24 hr 12/26/19 09:54 12/26/19 09:57 12/26/19 10:01 Temperature 37.9 C H Temperature Source Oral Pulse Rate 76 Pulse Rate from SpO2 Sensor Respiratory Rate 20 Respiratory Effort / Characteristics Non-Labored Spontaneous Non-Labored Spontaneous Respiratory Depth Normal Blood Pressure 181/57 H Blood Pressure Mean 98 Pulse Oximetry 92 92 92 Oxygen Delivery Method Room Air Room Air Room Air Sepsis Recent Fever Within 48 Hours Yes Sepsis New/Unexplained Change in Mental Status N/A Sepsis Action Taken by Nursing No Action Required 12/26/19 10:10 12/26/19 10:30 12/26/19 11:22 Temperature Temperature Source Pulse Rate 80 85 79 Pulse Rate from SpO2 Sensor 80 78 Respiratory Rate 18 24 11 L Respiratory Effort / Characteristics Respiratory Depth Blood Pressure 177/85 H 159/81 H Blood Pressure Mean 151 99 Pulse Oximetry 92 93 90 Oxygen Delivery Method Room Air Room Air Sepsis Recent Fever Within 48 Hours Sepsis New/Unexplained Change in Mental Status Sepsis Action Taken by Nursing 12/26/19 11:30 12/26/19 12:00 12/26/19 12:30 Temperature Temperature Source Pulse Rate 75 66 62 Pulse Rate from SpO2 Sensor 75 66 62 Respiratory Rate 12 13 15 Respiratory Effort / Characteristics Respiratory Depth Blood Pressure 161/53 H 133/53 L 135/60 Blood Pressure Mean 67 99 89 Pulse Oximetry 94 92 93 Oxygen Delivery Method Sepsis Recent Fever Within 48 Hours Sepsis New/Unexplained Change in Mental Status Sepsis Action Taken by Nursing 12/26/19 12:31 12/26/19 13:00 12/26/19 13:01 Temperature Temperature Source Pulse Rate 62 79 80 Pulse Rate from SpO2 Sensor 62 78 79 Respiratory Rate 12 20 19 Respiratory Effort / Characteristics Respiratory Depth Blood Pressure 171/69 H Blood Pressure Mean 92 Pulse Oximetry 94 98 96 Oxygen Delivery Method Room Air Sepsis Recent Fever Within 48 Hours Sepsis New/Unexplained Change in Mental Status Sepsis Action Taken by Nursing 12/26/19 13:02 12/26/19 13:23 12/26/19 13:30 Temperature 36.6 C Temperature Source Oral Pulse Rate 79 72 Pulse Rate from SpO2 Sensor 78 72 Respiratory Rate 17 17 Respiratory Effort / Characteristics Respiratory Depth Blood Pressure 179/64 H Blood Pressure Mean 104 Pulse Oximetry 96 97 Oxygen Delivery Method Sepsis Recent Fever Within 48 Hours Sepsis New/Unexplained Change in Mental Status Sepsis Action Taken by Nursing 12/26/19 13:31 Temperature Temperature Source Pulse Rate 71 Pulse Rate from SpO2 Sensor 71 Respiratory Rate 14 Respiratory Effort / Characteristics Respiratory Depth Blood Pressure Blood Pressure Mean Pulse Oximetry 97 Oxygen Delivery Method Sepsis Recent Fever Within 48 Hours Sepsis New/Unexplained Change in Mental Status Sepsis Action Taken by Nursing Laboratory Data Result diagrams: 12/26/19 10:29 12/26/19 10:29 Lab Results 12/26/19 12/26/19 12/26/19 Range/Units 10:00 10:00 10:29 WBC 9.57 (4.8-10.8) K/uL RBC 2.48 L (4.2-5.4) M/uL Hgb 8.0 L (12.0-16.0) g/dL Hct 24.3 L (37-47) % MCV 98.0 (80-100) fL MCH 32.3 (25-34) pg MCHC 32.9 (32-36) g/dL RDW Std Deviation 49.0 H (36.4-46.3) fL RDW Coeff of Kylah 13.8 (11.5-14.5) % Plt Count 164 (130-400) K/uL MPV 10.0 (7.4-10.4) fL Immature Gran % (Auto) 0.3 % Neut % (Auto) 77.7 % Lymph % (Auto) 16.1 % [place] % (Auto) 5.5 % Eos % (Auto) 0.4 % Baso % (Auto) 0.0 % Neut # (Auto) 7.43 H (1.4-6.5) K/uL Lymph # (Auto) 1.54 (1.2-3.4) K/uL [place] # (Auto) 0.53 (0.11-0.59) K/uL Eos # (Auto) 0.04 (0-0.5) K/uL Baso # (Auto) 0.00 (0-0.2) K/uL Immature Gran # (Auto) 0.03 H (0.00-0.02) K/uL PT (9.0-12.0) Seconds INR (0.9-1.1) APTT (21.0-31.0) Seconds PTT Ratio Sodium (136-145) mmol/L Potassium (3.5-5.1) mmol/L Chloride (98-107) mmol/L Carbon Dioxide (21-32) mmol/L Anion Gap (3-11) BUN (7-18) mg/dl Creatinine (0.6-1.2) mg/dl Est Cr Clr Drug Dosing Est GFR ( Amer) Est GFR (Non-Af Amer) BUN/Creatinine Ratio (10-20) Glucose (70-99) mg/dl Lactate (0.4-2.0) mmol/L Calcium (8.5-10.1) mg/dl Magnesium (1.8-2.4) mg/dl Total Bilirubin (0.2-1) mg/dl AST (15-37) U/L ALT (12-78) U/L Alkaline Phosphatase (45-117) U/L Troponin I (0-0.045) ng/ml NT-Pro-B Natriuret Pep (0-1800) pg/ml Total Protein (6.4-8.2) gm/dl Albumin (3.4-5.0) gm/dl Globulin (2.5-4.0) gm/dl Albumin/Globulin Ratio (0.9-2) Procalcitonin (0-0.5) ng/ml Urine Color Urine Appearance (Clear) Urine pH (4.5-7.5) Ur Specific [place] (1.000-1.030) Urine Protein (Negative) Urine Glucose (UA) (Negative) Urine Ketones (Negative) Urine Blood (Negative) Urine Nitrite (Negative) Urine Bilirubin (Negative) Urine Urobilinogen (Negative) Ur Leukocyte Esterase (Negative) Urine WBC (Auto) (0-5) /hpf Urine RBC (Auto) (0-4) /hpf U Hyaline Cast (Auto) (0-5) /lpf U Epithel Cells (Auto) (0-5) /lpf Urine Bacteria (Auto) (Negative) COVID-19 Eval Order Covid19 Done at [facility] COVID-19 PCR NEGATIVE (Negative) 12/26/19 12/26/19 12/26/19 Range/Units 10:29 10:29 10:29 WBC (4.8-10.8) K/uL RBC (4.2-5.4) M/uL Hgb (12.0-16.0) g/dL Hct (37-47) % MCV (80-100) fL MCH (25-34) pg MCHC (32-36) g/dL RDW Std Deviation (36.4-46.3) fL RDW Coeff of Kylah (11.5-14.5) % Plt Count (130-400) K/uL MPV (7.4-10.4) fL Immature Gran % (Auto) % Neut % (Auto) % Lymph % (Auto) % [place] % (Auto) % Eos % (Auto) % Baso % (Auto) % Neut # (Auto) (1.4-6.5) K/uL Lymph # (Auto) (1.2-3.4) K/uL [place] # (Auto) (0.11-0.59) K/uL Eos # (Auto) (0-0.5) K/uL Baso # (Auto) (0-0.2) K/uL Immature Gran # (Auto) (0.00-0.02) K/uL PT 11.0 (9.0-12.0) Seconds INR 1.0 (0.9-1.1) APTT 22.3 (21.0-31.0) Seconds PTT Ratio 0.8 Sodium 139 (136-145) mmol/L Potassium 4.7 (3.5-5.1) mmol/L Chloride 107 (98-107) mmol/L Carbon Dioxide 23 (21-32) mmol/L Anion Gap 9.0 (3-11) BUN 69 H (7-18) mg/dl Creatinine 3.23 H (0.6-1.2) mg/dl Est Cr Clr Drug Dosing Not Reportable Est GFR ( Amer) 14.0 Est GFR (Non-Af Amer) 12.1 BUN/Creatinine Ratio 21.4 H (10-20) Glucose 137 H (70-99) mg/dl Lactate 0.9 (0.4-2.0) mmol/L Calcium 8.8 (8.5-10.1) mg/dl Magnesium 1.8 (1.8-2.4) mg/dl Total Bilirubin 0.4 (0.2-1) mg/dl AST 16 (15-37) U/L ALT 16 (12-78) U/L Alkaline Phosphatase 91 (45-117) U/L Troponin I < 0.015 (0-0.045) ng/ml NT-Pro-B Natriuret Pep (0-1800) pg/ml Total Protein 7.3 (6.4-8.2) gm/dl Albumin 2.9 L (3.4-5.0) gm/dl Globulin 4.4 H (2.5-4.0) gm/dl Albumin/Globulin Ratio 0.7 L (0.9-2) Procalcitonin (0-0.5) ng/ml Urine Color Urine Appearance (Clear) Urine pH (4.5-7.5) Ur Specific [place] (1.000-1.030) Urine Protein (Negative) Urine Glucose (UA) (Negative) Urine Ketones (Negative) Urine Blood (Negative) Urine Nitrite (Negative) Urine Bilirubin (Negative) Urine Urobilinogen (Negative) Ur Leukocyte Esterase (Negative) Urine WBC (Auto) (0-5) /hpf Urine RBC (Auto) (0-4) /hpf U Hyaline Cast (Auto) (0-5) /lpf U Epithel Cells (Auto) (0-5) /lpf Urine Bacteria (Auto) (Negative) COVID-19 Eval Order COVID-19 PCR (Negative) 12/26/19 12/26/19 12/26/19 Range/Units 10:35 10:35 10:36 WBC (4.8-10.8) K/uL RBC (4.2-5.4) M/uL Hgb (12.0-16.0) g/dL Hct (37-47) % MCV (80-100) fL MCH (25-34) pg MCHC (32-36) g/dL RDW Std Deviation (36.4-46.3) fL RDW Coeff of Kylah (11.5-14.5) % Plt Count (130-400) K/uL MPV (7.4-10.4) fL Immature Gran % (Auto) % Neut % (Auto) % Lymph % (Auto) % [place] % (Auto) % Eos % (Auto) % Baso % (Auto) % Neut # (Auto) (1.4-6.5) K/uL Lymph # (Auto) (1.2-3.4) K/uL [place] # (Auto) (0.11-0.59) K/uL Eos # (Auto) (0-0.5) K/uL Baso # (Auto) (0-0.2) K/uL Immature Gran # (Auto) (0.00-0.02) K/uL PT (9.0-12.0) Seconds INR (0.9-1.1) APTT (21.0-31.0) Seconds PTT Ratio Sodium (136-145) mmol/L Potassium (3.5-5.1) mmol/L Chloride (98-107) mmol/L Carbon Dioxide (21-32) mmol/L Anion Gap (3-11) BUN (7-18) mg/dl Creatinine (0.6-1.2) mg/dl Est Cr Clr Drug Dosing Est GFR ( Amer) Est GFR (Non-Af Amer) BUN/Creatinine Ratio (10-20) Glucose (70-99) mg/dl Lactate (0.4-2.0) mmol/L Calcium (8.5-10.1) mg/dl Magnesium (1.8-2.4) mg/dl Total Bilirubin (0.2-1) mg/dl AST (15-37) U/L ALT (12-78) U/L Alkaline Phosphatase (45-117) U/L Troponin I (0-0.045) ng/ml NT-Pro-B Natriuret Pep 4754 H (0-1800) pg/ml Total Protein (6.4-8.2) gm/dl Albumin (3.4-5.0) gm/dl Globulin (2.5-4.0) gm/dl Albumin/Globulin Ratio (0.9-2) Procalcitonin 0.87 H (0-0.5) ng/ml Urine Color Yellow Urine Appearance Clear (Clear) Urine pH 6.0 (4.5-7.5) Ur Specific [place] 1.014 (1.000-1.030) Urine Protein 3+ H (Negative) Urine Glucose (UA) Negative (Negative) Urine Ketones Negative (Negative) Urine Blood Negative (Negative) Urine Nitrite Negative (Negative) Urine Bilirubin Negative (Negative) Urine Urobilinogen Negative (Negative) Ur Leukocyte Esterase Negative (Negative) Urine WBC (Auto) 1-5 (0-5) /hpf Urine RBC (Auto) 0-4 (0-4) /hpf U Hyaline Cast (Auto) 1-5 (0-5) /lpf U Epithel Cells (Auto) 20-30 H (0-5) /lpf Urine Bacteria (Auto) Negative (Negative) COVID-19 Eval Order COVID-19 PCR (Negative) Administered Medications Amlodipine Besylate (Amlodipine Besylate 5 Mg Tab) 5 mg PO DAILY BRUCE Stop: 01/25/20 16:14 Last Admin: 12/26/19 17:28 Dose: 5 mg Documented by: [id number] Furosemide (Furosemide 20 Mg Tab) 20 mg PO DAILY BRUCE Stop: 01/25/20 16:14 Last Admin: 12/26/19 17:28 Dose: 20 mg Documented by: [id number] Insulin Aspart (Insulin Aspart 100 Units/Ml 3 Ml Pen) 0 units SC ACHS BRUCE Stop: 01/25/20 16:29 Last Admin: 12/26/19 17:30 Dose: 2 units Documented by: [id number] Cosigned by: [id number] Polyethylene Glycol (Polyethylene (Miralax) 17 Gm Pack) 17 gm PO BID BRUCE Stop: 01/25/20 16:14 Last Admin: 12/26/19 16:52 Dose: 17 gm Documented by: [id number] Discontinued Medications Sodium Chloride (Nss 1000ml) 1,000 mls @ 150 mls/hr IV .Q6H40M BRUCE Stop: 01/25/20 09:59 Last Admin: 12/26/19 16:48 Dose: Not Given Documented by: [id number] Acetaminophen (Ofirmev) 1,000 mg in 100 mls @ 400 mls/hr IV NOW STA Stop: 12/26/19 10:05 Last Infusion: 12/26/19 11:18 Dose: 0 mls/hr Documented by: [id number] Admin: 12/26/19 10:42 Dose: 400 mls/hr Documented by: [id number] Sodium Chloride (Nss 1000ml) 500 mls @ 999 mls/hr IV .Q31M ONE Stop: 12/26/19 10:21 Last Infusion: 12/26/19 11:18 Dose: 0 mls/hr Documented by: [id number] Admin: 12/26/19 10:36 Dose: 999 mls/hr Documented by: [id number] Clindamycin Phosphate 600 mg/ (Dextrose) 54 mls @ 100 mls/hr IV ONE ONE Stop: 12/26/19 13:23 Last Infusion: 12/26/19 14:17 Dose: 0 mls/hr Documented by: [id number] Admin: 12/26/19 13:18 Dose: 100 mls/hr Documented by: [id number] Piperacillin Sod/Tazobactam (Sod 3.375 gm/ Dextrose) 115 mls @ 230 mls/hr IV NOW ONE; Protocol Stop: 12/26/19 16:29 Last Infusion: 12/26/19 17:36 Dose: 0 mls/hr Documented by: [id number] Admin: 12/26/19 16:52 Dose: 230 mls/hr Documented by: [id number] Ondansetron HCl (Ondansetron Inj 2 Mg/Ml 2 Ml Vial) 4 mg IV NOW STA Stop: 12/26/19 09:52 Last Admin: 12/26/19 10:42 Dose: 4 mg Documented by: [id number] Sodium Biphosphate/Sodium Phosphate (Sod Phosphate/Sod Biphosphate Enema 132 Ml Btl) 132 ml NV NOW ONE Stop: 12/26/19 15:31 Last Admin: 12/26/19 16:48 Dose: Not Given Documented by: [id number] Discharge Plan Visit Data Chief Complaint: Vomiting ED Provider: Bob Davenport Discharge Problem: Fever, Vomiting, AMS (altered mental status), Acute kidney injury, Aspiration pneumonia Patient Disposition: Admitted As Inpatient Discharge Instructions Interventions: ED Discharge Assessment Last Done: 12/26/19 14:31
[2019-12-26] MEDS ORDERED: SODIUM CHLORIDE 0.9% 1000ML 1,000 ML IV SCH (10:00)
[2019-12-26 10:42] LABS: Eosinophils # (auto) 0.04 K/uL (0-0.5); Eosinophils % (auto) 0.4 %; Hematocrit (blood only) 24.3 % (37-47); Immature Granulocytes # (auto) 0.03 K/uL (0.00-0.02); Immature Granulocytes % (auto) 0.3 %; Lymphocytes # (auto) 1.54 K/uL (1.2-3.4); Lymphocytes % (auto) 16.1 %; Mean Corpuscular Hemoglobin 32.3 pg (25-34); Mean Corpuscular Hgb Conc 32.9 g/dL (32-36); Monocytes # (auto) 0.53 K/uL (0.11-0.59); Monocytes % (auto) 5.5 %; Neutrophils # (auto) 7.43 K/uL (1.4-6.5); Neutrophils % (auto) 77.7 %; Platelet Count 164 K/uL (130-400); RDW Coefficient of Variation 13.8 % (11.5-14.5); Red Blood Count 2.48 M/uL (4.2-5.4); White Blood Count 9.57 K/uL (4.8-10.8)
[2019-12-26 10:52] LABS: Appearance Urine Clear (Clear); Bacteria Urine Automated Negative (Negative); Bilirubin Urine Negative (Negative); Blood Urine Negative (Negative); Color Urine Yellow; Epithelial Cell Urine Auto 20-30 /lpf (0-5); Glucose Urine UA Negative (Negative); Ketones Urine Negative (Negative); Leukocyte Esterase Urine Negative (Negative); Nitrite Urine Negative (Negative); Protein Urine 3+ (Negative); RBC Urine Automated 0-4 /hpf (0-4); Specific Gravity Urine 1.014 (1.000-1.030); Urobilinogen Urine Negative (Negative)
[2019-12-26 10:53] LABS: Partial Thromboplastin Ratio 0.8; Partial Thromboplastin Time 22.3 Seconds (21.0-31.0)
[2019-12-26 11:03] LABS: Alanine Aminotransferase 16 U/L (12-78); Albumin Level 2.9 gm/dl (3.4-5.0); Aspartate Aminotransferase 16 U/L (15-37); BUN Creatinine Ratio 21.4 (10-20); Blood Urea Nitrogen 69 mg/dl (7-18); Calcium 8.8 mg/dl (8.5-10.1); Carbon Dioxide 23 mmol/L (21-32); Chloride 107 mmol/L (98-107); Est GFR (Non-African American) 12.1; Glucose 137 mg/dl (70-99); Magnesium 1.8 mg/dl (1.8-2.4); Potassium 4.7 mmol/L (3.5-5.1); Sodium 139 mmol/L (136-145)
[2019-12-26 11:08] LABS: Albumin Globulin Ratio 0.7 (0.9-2); Alkaline Phosphatase 91 U/L (45-117); Bilirubin,Total 0.4 mg/dl (0.2-1); Globulin 4.4 gm/dl (2.5-4.0); Total Protein 7.3 gm/dl (6.4-8.2); Troponin I < 0.015 ng/ml (0-0.045)
--- NOTE | 2019-12-26 11:21 | CT Scan Report ---
CT head/brain wo con CLINICAL HISTORY: Acute change in mental status COMPARISON STUDY: 01/21/2019 TECHNIQUE: Axial CT of the brain is performed from the vertex to the skull base. IV contrast was not administered for this examination. A dose lowering technique was utilized adhering to the principles of ALARA. CT DOSE: 638.56 mGycm FINDINGS: No intra or extra-axial mass lesions are visualized. There is no CT evidence of acute cortical infarc tion. There is no evidence of midline shift. There is no acute hemorrhage. No calvarial fractures ar e visualized. There are patchy white matter hypodensities likely on a small vessel basis. There is no evidence of pathologic ventricular dilatation. There is no evidence of acute sinusitis IMPRESSION: No acute intracranial findings ACT 112: Negative or not required by law. Electronically signed by: Sha Marshall M.D. 12/26/2019 11:19 AM
--- NOTE | 2019-12-26 11:38 | CT Scan Report ---
CT SCAN OF THE ABDOMEN AND PELVIS WITHOUT IV CONTRAST CLINICAL HISTORY: Vomiting. Change in mental status. COMPARISON STUDY: CT of the right hip dated 06/06/2018. Renal ultrasound dated 02/02/2019. TECHNIQUE: CT scan of the abdomen and pelvis is performed from the lung bases to the proximal femora. Images are reviewed in the axial, sagittal, and coronal planes. IV contrast was not administered for this examination. Note that the examination was performed in suboptimal fashion without oral and IV contrast. The examination is degraded by motion artifact, as well as by streak artifact from the arms which could not be elevated above the abdomen. A dose lowering technique was utilized adhering to th e principles of ALARA. CT DOSE: 804.51 mGycm FINDINGS: Lung bases: The heart is mildly enlarged noting a small pericardial effusion. The coronary arteries a re densely calcified. Pacemaker leads are noted. There are small pleural effusions with bibasilar con solidation. Intralobular septal thickening is noted at the lung bases. Liver: The unenhanced liver is normal in size, contour, and attenuation. There is mild central intrah epatic biliary ductal dilatation. Periportal edema is suggested. Gallbladder: Not identified and presumed surgically absent. Spleen: Normal in size and attenuation. There is a 13 mm peripherally calcified splenic artery aneury sm seen on image #94. Pancreas: The unenhanced pancreas is atrophic and grossly unremarkable. Adrenal glands: There is nonspecific thickening of the adrenal glands. Kidneys: The unenhanced kidneys are atrophic and without hydronephrosis. There are bilateral renal va scular calcifications. Question small nonobstructing renal calculi. 1.7 cm cyst is noted in the left kidney. Abdominal vasculature: The abdominal aorta is normal in course and caliber noting moderate atheroscle rotic calcification. Bowel: There is rectosigmoid fecal impaction and moderate constipation. There is no significant recta l wall thickening. Mild perirectal infiltration is identified. No bowel obstruction is seen. There is mild to moderate diverticulosis of the left colon without CT evidence of acute diverticulitis. The a ppendix is not visualized. Peritoneum: There is no intraperitoneal free air or abdominal ascites. Lymphadenopathy: None. Pelvic viscera: The bladder is mildly distended but otherwise normal in appearance. The uterus is ronn gically absent. A 5.9 x 3.9 cm mildly complex cystic lesion in the right adnexa seen on image #254 is similar in appearance to the 06/06/[address] This is likely related to the right ovary. Numerous p hleboliths are seen in the pelvis. Skeletal structures: The skeletal structures are osteopenic. There is advanced lumbosacral spondylosi s as well as scoliosis. No lytic or blastic lesions are seen. Chronic posttraumatic deformity and pos toperative change is seen in the right hip. IMPRESSION: 1. Suboptimal examination without oral and IV contrast. There is also streak and motion artifact. 2. Cardiomegaly and cardiac pacemaker. Intralobular septal thickening is noted at the lung bases and this could represent acute versus chronic congestive change. Clinical correlation will be required. 3. Small pleural effusions with bibasilar consolidation. 4. There is rectosigmoid fecal impaction and moderate constipation. No bowel obstruction is identifie d. 5. There is mild perirectal inflammation with no significant rectal wall thickening. Correlate clinic ally for evidence of a mild proctitis. 6. A 5.9 cm minimally complex cystic lesion in the right adnexa is likely related to the right ovary. This was also seen on the 06/06/[address] Follow-up with a nonemergent pelvic ultrasound is recomm ended for further assessment. 7. Additional findings as above. ACT 112: Negative or not required by law. Electronically signed by: Elvin Heaton M.D. 12/26/2019 11:37 AM
--- NOTE | 2019-12-26 11:42 | XRay Report ---
SINGLE VIEW CHEST CLINICAL HISTORY: Sepsis. FINDINGS: An AP, portable, upright chest radiograph is compared to study dated 01/21/2019. The examin ation is degraded by portable technique and patient rotation. A 2-lead cardiac pacemaker is unchanged in position and partially obscures the left upper chest. The heart is enlarged noting atheroscleroti c calcification of the thoracic and. There is mild pulmonary vascular congestion. There are small ple ural effusions with bibasilar consolidation. No pneumothorax is seen. The skeletal structures are ost eopenic. There is chronic posttraumatic deformity of the left humerus. Degenerative change is seen in the shoulders and thoracic spine. IMPRESSION: 1. Cardiomegaly and cardiac pacemaker. There is mild pulmonary vascular congestion. 2. Small pleural effusions with bibasilar consolidation. ACT 112: Negative or not required by law. Electronically signed by: Elvin Heaton M.D. 12/26/2019 11:40 AM
[2019-12-26] MEDS ORDERED: CLINDAMYCIN 600 MG in DEXTROSE 5% 50 ML IV ONE (12:51)
--- NOTE | 2019-12-26 14:34 | History & Physical Report ---
Date of Service December 26, 2019 Assessment & Plan (1) Fever: (2) Vomiting: (3) Weakness: This is an 89-year-old female who has significant past medical history of T2DM insulin-dependent, CKD stage IV, HTN, HLD, vascular dementia, iron efficiency anemia, cardiac pacemaker in situ who presents to ED secondary to weakness, altered metal status and emesis x2 days. Patient presents to ED with elevated temp 37.9, initially on O2 via nasal cannula which was able to be weaned and during my evaluation she was saturating at 100% on room air. History obtained from family reports increased weakness for the past 2 days, worsening confusion with dementia at baseline and 2 episodes of emesis throughout night. Overall general decline from baseline. Unable to obtain history from patient given advanced dementia. She does not meet SIRS or sepsis criteria upon admission. Her lactic acid was normal although she did have mild elevation of her procalcitonin. Covid-[address] scan abdomen pelvis revealed rectosigmoid fecal impaction, mild proctitis and concern for bilateral pleural effusion and interlobular septal thickening concern for acute on chronic congestive change Admit to med telemetry Begin IV Zosyn empirically until infection ruled out given fever, mild elevation of procalcitonin, reports of vomiting ? aspiration vs GI Component Blood culture pending, urine negative Will resume home lasix 20mg given findings concern for CHF and elevated pro BNP, but use cautiously in setting of mild renal insuff consult PT/OT (4) Constipation: Imaging reveals rectosigmoid fecal impaction moderate constipation Enema ordered, but family prefers MiraLAX at this time Order MiraLAX 17 g twice daily along with senna S 1 tab twice daily, hold for loose stool (5) Chronic kidney disease, stage 4 (severe): Baseline creatinine 2.8-3 BUN/creatinine 69 and 3.23 today, mild acute renal sufficiency on CKD stage IV She did receive 500 IVF while in ED, imaging revealing congestive changes, 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 Lantus/NovoLog per protocol (Home regimen is 10 units of Lantus daily) Given advanced age would not recommend tight control (7) Hypertension: blood pressure elevated in ED, may be situational as she appears comfortable Pt on amlodipine and metoprolol daily monitor (8) Dementia: vascular dementia at baseline alert to self only no agitation at this time (9) Anemia: H&H 8 and 24.5, baseline hemoglobin between 9 and 10 Obtain iron panel, vitamin B12 and folic acid in a.m. Monitor, transfuse for hemoglobin less than 7 (10) Adnexal cyst: A 5.9 cm minimally complex cystic lesion in the right adnexa is likely related to the right ovary. This was also seen on the 06/06/[address] Follow-up with a nonemergent pelvic ultrasound is recommended for further assessment. (11) DVT prophylaxis: SQ Heparin Disposition: admit to [facility] tele Follow up: PCP Dr. Aguirre upon discharge Pt was seen and examined in collaboration with Dr. Porter, please see addendum History of Present Illness Chief Complaint: Weakness, altered mental status and emesis x2 days. Primary Care Provider: Court Aguirre, DO This is an 89-year-old female who has significant past medical history of T2DM insulin-dependent, CKD stage IV, HTN, HLD, vascular dementia, iron efficiency anemia, cardiac pacemaker in situ who presents to ED secondary to weakness, altered metal status and emesis x2 days. Son and daughter are at bedside. History limited from patient secondary to vascular dementia and most history obtained from family members at bedside. Patient lives at home with 24/7 caregivers. She most recently had been on hospice but has since been taking off approximately 1 week ago. She was on hospice secondary to worsening dementia per family. On Wednesday patient had episode of fall in the evening. She did not lose consciousness, fall was unwitnessed and mostly left with some bruising. Wednesday evening while asleep she did have episode of emesis when family found her in the morning. She also had episode of emesis x1 yesterday and when daughter went to see her this morning she was lying in bed with vomit on her and the bed. Family illnesses over the past 2 days they have noticed increasing weakness and difficulty with ambulation. Typically she ambulates with a walker with assistance. She is confused at baseline and is unable to have meaningful conversation but they do also feel she is more confused. Patient currently denies any pain. ROS unobtainable secondary to cognition. Allergies Allergy/AdvReac Type Severity Reaction Status Date / Time latex Allergy Mild Rash Verified 09/15/20 12:43 lovastatin AdvReac Mild "doesn't Verified 12/26/19 12:43 feel well" silicone AdvReac Mild Hives Verified 12/26/19 12:43 cephalexin [From Keflex] AdvReac HIVES Verified 12/26/19 12:43 Home Medications Home Medications Medication Instructions Recorded Confirmed Type insulin glargine 100 unit/mL 10 units SUBCUT QAM ml 12/30/18 12/26/19 History subcutaneous solution escitalopram oxalate 5 mg tablet 5 mg PO QAM 09/15/19 12/26/19 History amlodipine 5 mg PO DAILY 12/26/19 12/26/19 History cranberry extract-vitamin C [Azo 1 cap PO BID 12/26/19 12/26/19 History Cranberry Plus Vit C] furosemide 20 mg PO DAILY 12/26/19 12/26/19 History metoprolol tartrate 25 mg PO PM 12/26/19 12/26/19 History metoprolol tartrate 50 mg PO DAILY 12/26/19 12/26/19 History trazodone 50 mg PO HS 12/26/19 12/26/19 History Past Med/Surg History Medical History (Updated 12/26/19 @ 17:42 by Bob Davenport MD) Acute worsening of stage 4 chronic kidney disease Adnexal cyst Anemia Chronic kidney disease, stage 4 (severe) CKD (chronic kidney disease), stage IV Dementia Diabetes HTN (hypertension) Hypertension Pacemaker Vitamin D deficiency Surgical History (Updated 12/26/19 @ 14:32 by Meghan Corral PA-C) History of repair of right hip joint History of right hip fracture History of total left knee replacement (TKR) Hx of cardiac pacemaker Family History Other Family history unobtainable Social History (Updated 12/26/19 @ 14:33 by Meghan Corral PA-C) Smoking Status: Never smoker Second Hand Exposure: No; Hx Alcohol Use: No Hx Substance Use: No Preferred Language: Turkmen Communication Ability: Impaired Communication Ability Comment: Secondary to cognition Automatic 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 Seamer Required: No Beliefs That Will Affect Care: None marital status: / Current Living Situation: Alone Current Living Situation Comment: Caregivers around the clock current occupational status: retired Other Information That Helps Us Care for You: No Feels Safe at Home: Yes Safety Concerns: Feels Safe At This Time Review of Systems Review of Systems: All systems reviewed & are unremarkable except as noted in HPI & below Physical Exam Physical Exam: Constitutional: Fatigue, elderly, female, WD/WN, vitals as above, NAD, sitting up in bed, pleasant, alert to self only Head: Normocephalic, Atraumatic Eyes: PERRL, conjunctivae normal, anicteric sclerae ENMT: external ear and nose normal, oropharynx normal Neck: trachea midline, no thyromegaly normal visual inspection Respiratory: normal respiratory effort, lungs clear to auscultation, no wheeze, rales, rhonchi. Normal insp/exp effort, no accessory muscle use Cardiovascular: RRR, no murmur, no edema, b/l pedal pulse +2 vessels: no JVD or carotid bruit Chest: normal inspection of chest Abdomen: normal bowel sounds, soft, nontender, no hepatosplenomegaly Musculoskeletal: no cyanosis or clubbing, active range of motion x4, strength to right lower extremity 4/5, strength to left lower extremity 5/5 extremities motor strength 5/5 Skin: no rashes, warm and dry normal turgor Neurologic: PERRL, EOMI, accommodation nl, no face palsy, no dysarthria CN's II-XI intact bilaterally and moves all extremities Psychiatric: A+Ox1 self only, euthymic affect Lymphatic: no cervical or axillary lymphadenopathy : deferred Results & Data Results & Data ([facility]) Vital Signs (Past 12 Hours) Vital Signs Temp Pulse Resp BP Pulse Ox 12/26/19 13:23 36.6 C 12/26/19 13:01 80 19 171/69 H 96 12/26/19 13:00 79 20 98 12/26/19 12:31 62 12 94 12/26/19 12:30 62 15 135/60 93 12/26/19 12:00 66 13 133/53 L 92 12/26/19 11:30 75 12 161/53 H 94 12/26/19 11:22 79 11 L 90 12/26/19 10:30 85 24 159/81 H 93 12/26/19 10:10 80 18 177/85 H 92 12/26/19 10:01 92 12/26/19 09:57 37.9 C H 76 20 181/57 H 92 12/26/19 09:54 92 Laboratory Results Short CBC 12/26/19 12/26/19 12/26/19 Range/Units 10:29 10:35 10:36 WBC 9.57 (4.8-10.8) K/uL Hgb 8.0 L (12.0-16.0) g/dL Hct 24.3 L (37-47) % Plt Count 164 (130-400) K/uL NT-Pro-B Natriuret Pep 4754 H (0-1800) pg/ml Procalcitonin 0.87 H (0-0.5) ng/ml BMP 12/26/19 10:29 Sodium 139 Potassium 4.7 Chloride 107 Carbon Dioxide 23 BUN 69 H Creatinine 3.23 H Glucose 137 H Calcium 8.8 Cardiac Enzymes 12/26/19 Range/Units 10:29 Troponin I < 0.015 (0-0.045) ng/ml Liver Function 12/26/19 Range/Units 10:29 Total Bilirubin 0.4 (0.2-1) mg/dl AST 16 (15-37) U/L ALT 16 (12-78) U/L Alkaline Phosphatase 91 (45-117) U/L Albumin 2.9 L (3.4-5.0) gm/dl Urine 12/26/19 Range/Units 10:35 Urine Color Yellow Urine Appearance Clear (Clear) Urine pH 6.0 (4.5-7.5) Ur Specific [place] 1.014 (1.000-1.030) Urine Protein 3+ H (Negative) Urine Glucose (UA) Negative (Negative) Diagnostic Findings Head CT: Chest CT: IMPRESSION: 1. Cardiomegaly and cardiac pacemaker. Intralobular septal thickening suggest acute versus chronic congestive change. Clinical correlation will be required. 2. Small to moderate pleural effusions with bibasilar consolidation. 3. Additional findings as above. CXR: IMPRESSION: 1. Cardiomegaly and cardiac pacemaker. There is mild pulmonary vascular congestion. 2. Small pleural effusions with bibasilar consolidation. CT Abd/Pelvis: 1. Suboptimal examination without oral and IV contrast. There is also streak and motion artifact. 2. Cardiomegaly and cardiac pacemaker. Intralobular septal thickening is noted at the lung bases and this could represent acute versus chronic congestive change. Clinical correlation will be required. 3. Small pleural effusions with bibasilar consolidation. 4. There is rectosigmoid fecal impaction and moderate constipation. No bowel obstruction is identified. 5. There is mild perirectal inflammation with no significant rectal wall thickening. Correlate clinically for evidence of a mild proctitis. 6. A 5.9 cm minimally complex cystic lesion in the right adnexa is likely related to the right ovary. This was also seen on the 06/06/[address] Follow- up with a nonemergent pelvic ultrasound is recommended for further assessment. 7. Additional findings as above. Medications Administered Discontinued Medications Acetaminophen (Ofirmev) 1,000 mg in 100 mls @ 400 mls/hr IV NOW STA Stop: 12/26/19 10:05 Last Infusion: 12/26/19 11:18 Dose: 0 mls/hr Documented by: [id number] Admin: 12/26/19 10:42 Dose: 400 mls/hr Documented by: [id number] Sodium Chloride (Nss 1000ml) 500 mls @ 999 mls/hr IV .Q31M ONE Stop: 12/26/19 10:21 Last Infusion: 12/26/19 11:18 Dose: 0 mls/hr Documented by: [id number] Admin: 12/26/19 10:36 Dose: 999 mls/hr Documented by: [id number] Clindamycin Phosphate 600 mg/ (Dextrose) 54 mls @ 100 mls/hr IV ONE ONE Stop: 12/26/19 13:23 Last Infusion: 12/26/19 14:17 Dose: 0 mls/hr Documented by: [id number] Admin: 12/26/19 13:18 Dose: 100 mls/hr Documented by: [id number] Ondansetron HCl (Ondansetron Inj 2 Mg/Ml 2 Ml Vial) 4 mg IV NOW STA Stop: 12/26/19 09:52 Last Admin: 12/26/19 10:42 Dose: 4 mg Documented by: [id number] ECG Rate (beats per minute): 74 Findings: + paced rhythm Code Status & VTE Plan Code Status Full Code VTE Prophylaxis Plan VTE Prophylaxis will be ordered: Yes Supervising Physician Co-Signing Physician Notes Pt was seen and examined. Agreed with Meghan BAH exam, assessment and plan. 89-year-old female who has significant past medical history of T2DM insulin- dependent, CKD stage IV, HTN, HLD, vascular dementia, iron efficiency anemia, cardiac pacemaker in situ presents to ED secondary with c/o weakness, altered metal status and emesis. History obtained from PA documentation (from family member at bedside) due to patient dementia. See Meghan PARISH-C H&P. Denies any chest pain, palpitation, dizziness and SOB. Currently seating in bed feeding herself. CT abd/pelvis in the ER showed Intralobular septal thickening is noted at the lung bases and this could represent acute versus chronic congestive change. Small pleural effusions with bibasilar consolidation.There is rectosigmoid fecal impaction and moderate constipation. No bowel obstruction is identified. A 5.9 cm minimally complex cystic lesion in the right adnexa is likely related to the right ovary. CT head showed no acute finding. CT chest showed Intralobular septal thickening suggest acute versus chronic congestive change. Small to moderate pleural effusions with bibasilar consolidation. Received Clindamycin on admission and IVF on admission. Currently saturated well on RA. Will start on Zosyn. Blood cx collected in the ER pending. Will consult Nephrology. If creatinine worsening, please hold lasix in am. Monitor CBC and BMP. Will continue monitor closely. MD German (1) Dementia Dementia behavioral disturbance: without behavioral disturbance Dementia type: unspecified type Qualified Code(s): F03.90 - Unspecified dementia without behavioral disturbance
--- NOTE | 2019-12-26 15:07 | CT Scan Report ---
CT SCAN OF THE CHEST WITHOUT IV CONTRAST CLINICAL HISTORY: Sepsis. COMPARISON STUDY: Chest x-ray dated 12/26/2019. TECHNIQUE: CT scan of the thorax was performed from the thoracic inlet to the upper abdomen. Images are reviewed in the axial, sagittal, and coronal planes. IV contrast was not administered for this ex amination as per the referring clinician. A dose lowering technique was utilized adhering to the caleb nciples of AI. Examination is degraded by streak artifact from the arms which could not be elevate d above the chest as well as by motion artifact. CT DOSE: 401.09 mGy.cm FINDINGS: Thyroid: Imaged portions of the thyroid gland are normal in size and attenuation. Bilateral thyroid n odules measure up to 1.8 cm. Thoracic aorta: There is atherosclerotic calcification of the thoracic aorta, which is normal in renard liberty and demonstrates standard 3-vessel arch anatomy. Heart: A 2-lead cardiac pacemaker is present in the left chest wall. The heart is enlarged noting a s mall pericardial effusion. The coronary arteries and mitral annulus are densely calcified. There is d iminished attenuation of the cardiac blood pool as compared to the myocardium suggesting anemia. Lungs and pleural spaces: Evaluation of the lung parenchyma is significantly degraded by motion artif act. The trachea and central airways appear clear. Intralobular septal thickening is noted in both parish ngs. A 3 mm right upper lobe pulmonary nodule is seen on image #136. There are small to moderate pleu ral effusions with bibasilar consolidation. Mediastinum: There are numerous mildly enlarged mediastinal lymph nodes. Paratracheal nodes measure u p to 11 mm in short axis. Several both containing calcifications. Shamika: There are calcified right hilar nodes. The shamika are not well assessed without IV contrast. Axillae: There is no axillary lymphadenopathy. Upper abdomen: Partially visualized upper abdominal viscera is within normal limits. Skeletal structures: The skeletal structures are osteopenic. There is chronic posttraumatic deformity of the left humerus. Advanced degenerative change is seen in both shoulders. Degenerative change and scoliosis are noted in the thoracic spine. No lytic or blastic bony lesions are seen. IMPRESSION: 1. Cardiomegaly and cardiac pacemaker. Intralobular septal thickening suggest acute versus chronic co ngestive change. Clinical correlation will be required. 2. Small to moderate pleural effusions with bibasilar consolidation. 3. Additional findings as above. ACT 112: Negative or not required by law. Electronically signed by: Elvin Heaton M.D. 12/26/2019 3:05 PM
[2019-12-26] MEDS ORDERED: ONDANSETRON INJ 2 MG/ML 2 ML VIAL IV PRN (15:10)
[2019-12-26] MEDS ORDERED: GLUCAGON FOR INJ 1 MG VIAL SQ PRN (15:10)
[2019-12-26] MEDS ORDERED: GLUCOSE 40% GEL 15 GM TUBE PO PRN (15:10)
[2019-12-26] MEDS ORDERED: ACETAMINOPHEN 325 MG TAB PO PRN (15:10)
[2019-12-26] MEDS ORDERED: CARBOHYDRATES FOR HYPOGLYCEMIA PO PRN (15:10)
[2019-12-26] MEDS ORDERED: GLUCOSE 10 TABS/TUBE PO PRN (15:10)
[2019-12-26] MEDS ORDERED: PIPERACILL/TAZOBAC CONSULT ACTIVE PRN (15:10)
[2019-12-26] MEDS ORDERED: DEXTROSE 50% 50 ML SYRINGE IV PRN (15:10)
--- NOTE | 2019-12-26 15:16 | Electrocardiogram Report ---
Test Reason : Blood Pressure : / mmHG Vent. Rate : 074 BPM Atrial Rate : 074 BPM P-R Int : 000 ms QRS Dur : 142 ms QT Int : 428 ms P-R-T Axes : 054 092 033 degrees QTc Int : 475 ms Poor data quality, interpretation may be adversely affected Ventricular-paced rhythm Abnormal ECG When compared with ECG of 21-JAN-2019 10:58, Vent. rate has increased BY 9 BPM Confirmed by Yohan Graham ([id number]) on 12/26/2019 3:15:56 PM Referred By: SELF Confirmed By:Yohan Graham
[2019-12-26] MEDS ORDERED: SOD PHOSPHATE/SOD BIPHOSPHATE ENEMA 132 ML BTL PR ONE (15:30)
[2019-12-26] MEDS ORDERED: PIPERACILLIN/TAZOBACTAM 3.375 GM in DEXTROSE 5% 100 ML IV ONE (16:00)
[2019-12-26] MEDS: POLYETHYLENE (MIRALAX) 17 GM PACK PO SCH ×2 (16:52→20:20)
[2019-12-26] MEDS: AMLODIPINE BESYLATE 5 MG TAB PO SCH (17:28)
[2019-12-26] MEDS: FUROSEMIDE 20 MG TAB PO SCH (17:28)
[2019-12-26] MEDS: INSULIN ASPART 100 UNITS/ML 3 ML PEN SC SCH ×2 (17:30→20:21)
[2019-12-26] MEDS: METOPROLOL TARTRATE 25 MG TAB PO SCH (20:19)
[2019-12-26] MEDS: HEPARIN SOD 5,000 UNIT/0.5 ML VIAL SQ SCH (20:19)
[2019-12-26] MEDS: DOCUSATE SODIUM/SENNA 50/8.6MG TAB PO SCH (20:20)
[2019-12-26] MEDS: TRAZODONE HCL 50 MG TAB PO SCH (20:20)
[2019-12-26] MEDS: INSULIN GLARGINE SOLOSTAR 100 UNITS/ML 3 ML PEN SC SCH (20:22)
[2019-12-26] MEDS: PIPERACILLIN/TAZOBACTAM 3.375 GM in DEXTROSE 5% 100 ML IV SCH (23:17)
[2019-12-27] MEDS: FUROSEMIDE 20 MG TAB PO SCH (08:46)
[2019-12-27] MEDS: ESCITALOPRAM OXALATE 10 MG TAB PO SCH (08:46)
[2019-12-27] MEDS: HEPARIN SOD 5,000 UNIT/0.5 ML VIAL SQ SCH ×2 (08:47→20:48)
[2019-12-27] MEDS: AMLODIPINE BESYLATE 5 MG TAB PO SCH (08:47)
[2019-12-27] MEDS: POLYETHYLENE (MIRALAX) 17 GM PACK PO SCH ×2 (08:47→20:51)
[2019-12-27] MEDS: METOPROLOL TARTRATE 50 MG TAB PO SCH (08:47)
[2019-12-27] MEDS: DOCUSATE SODIUM/SENNA 50/8.6MG TAB PO SCH ×2 (08:47→20:52)
[2019-12-27] MEDS: INSULIN ASPART 100 UNITS/ML 3 ML PEN SC SCH ×4 (08:48→20:52)
[2019-12-27] MEDS: INSULIN GLARGINE SOLOSTAR 100 UNITS/ML 3 ML PEN SC SCH ×2 (08:49→20:50)
[2019-12-27 09:16] LABS: Eosinophils # (auto) 0.03 K/uL (0-0.5); Eosinophils % (auto) 0.5 %; Hematocrit (blood only) 23.4 % (37-47); Hemoglobin 7.6 g/dL (12.0-16.0); Immature Granulocytes # (auto) 0.02 K/uL (0.00-0.02); Immature Granulocytes % (auto) 0.3 %; Lymphocytes # (auto) 1.78 K/uL (1.2-3.4); Mean Corpuscular Hemoglobin 32.3 pg (25-34); Mean Corpuscular Hgb Conc 32.5 g/dL (32-36); Mean Corpuscular Volume 99.6 fL (80-100); Mean Platelet Volume 9.9 fL (7.4-10.4); Monocytes # (auto) 0.39 K/uL (0.11-0.59); Monocytes % (auto) 5.9 %; Neutrophils # (auto) 4.38 K/uL (1.4-6.5); Neutrophils % (auto) 66.3 %; Platelet Count 175 K/uL (130-400); RDW Coefficient of Variation 14.2 % (11.5-14.5); RDW Standard Deviation 50.4 fL (36.4-46.3); Red Blood Count 2.35 M/uL (4.2-5.4)
[2019-12-27 09:34] LABS: BUN Creatinine Ratio 19.6 (10-20); Calcium 8.9 mg/dl (8.5-10.1); Creatinine Clr Calc Pharmacy 9.1 ml/min; Est GFR (African American) 11.8; Est GFR (Non-African American) 10.2; Potassium 4.3 mmol/L (3.5-5.1)
[2019-12-27 09:38] LABS: Estimated Average Glucose 117 mg/dl; Hemoglobin A1C 5.7 % (4.5-5.6)
[2019-12-27 09:39] LABS: Ferritin 1175.3 ng/ml (8-388)
--- NOTE | 2019-12-27 11:45 | Nephrology Consultation ---
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 On admission she was found have acute kidney injury which has been progressively worsening, creatinine was 3.3 on admission, worsened to 3.7. Electrolytes so far acceptable. Has chronic anemia. Respiratory status seems stable although CT chest showed mild pleural effusion and pulmonary congestion. No lower extremity edema. She has been on Lasix 20 mg p.o. daily at home. Acute kidney injury could be hemodynamically mediated with decreased p.o. intake at home, with underlying advanced CKD. No known history of any nephrotoxic medication exposure. CT abdomen pelvis was negative for any postrenal obstruction. has anemia with adequate iron stores. -- Hold Lasix for now, however avoid IV fluid considering mild pulmonary congestion and pleural effusion. -- Increase amlodipine to 10 mg p.o. daily -- encourage p.o. intake, continue to monitor renal function electrolyte. -- Considering underlying advanced dementia, progressive worsening of renal function and patient decision to not to consider renal replacement therapy in future, strongly suggest palliative care consultation and hospice care if no significant clinical improvement -- Epogen 56574 units x1 dose today -- Check PTH, phosphate -- low-potassium diet will follow Thank you for allowing me to participate in your patient's care. It was a pleasure to see Nikolas (2) Chronic kidney disease, stage 4 (severe): (3) Anemia: (4) Hypertension: (5) AMS (altered mental status): History of Present Illness Reason for Consultation: acute kidney injury with advanced CKD Attending Physician: Evert Stanton MD History of Present Illness Nikolas Fletcher is a 89-year-old female with past medical history significant for stage IV CKD, hypertension, advanced dementia, diabetes admitted to the hospital with generalized weakness and change in mental status for 2 days. Nephrology consult was requested as patient developed AK I with underlying CKD. Electronic medical records and reviewed in detail during patient's visit. Nikolas was admitted to the hospital yesterday with change in mental status and generalized weakness for [address] head, chest x-ray was unremarkable except mild pulmonary vascular congestion and bilateral pleural effusion. She herself denies any specific symptoms however she has advanced dementia at baseline. She received more than 1 L of IV fluid since admission, her blood pressure slightly elevated. No definitive source of infection, she is afebrile however currently being treated with empiric antibiotic. Has stage III CKD secondary to hypertension, diabetes and advanced age, baseline creatinine lately has been around 2.5-2.7. Has proteinuria but no hematuria, pyuria or bacteriuria. no lower extremity edema.. Previously she had discussion with her primary conciliation court judge Dr. Worley and and she decided not to consider renal replacement therapy in future. On admission creatinine was 3.3 which worsened further to 3.7 this morning with significantly low GFR. Electrolyte so far acceptable. Blood pressure has been elevated. She denies any shortness of breath or chest pain. Has been voiding normally. Allergies Allergy/AdvReac Type Severity Reaction Status Date / Time latex Allergy Mild Rash Verified 12/26/19 12:43 lovastatin AdvReac Mild "doesn't Verified 12/26/19 12:43 feel well" silicone AdvReac Mild Hives Verified 12/26/19 12:43 cephalexin [From Keflex] AdvReac HIVES Verified 12/26/19 12:43 Home Medications Home Medications Medication Instructions Recorded Confirmed Type insulin glargine 100 unit/mL 10 units SUBCUT QAM ml 12/30/18 12/26/19 History subcutaneous solution escitalopram oxalate 5 mg tablet 5 mg PO QAM 09/15/19 12/26/19 History amlodipine 5 mg PO DAILY 12/26/19 12/26/19 History cranberry extract-vitamin C [Azo 1 cap PO BID 12/26/19 12/26/19 History Cranberry Plus Vit C] furosemide 20 mg PO DAILY 12/26/19 12/26/19 History metoprolol tartrate 25 mg PO PM 12/26/19 12/26/19 History metoprolol tartrate 50 mg PO DAILY 12/26/19 12/26/19 History trazodone 50 mg PO HS 12/26/19 12/26/19 History Patient History Medical History (Updated 12/26/19 @ 17:42 by Bob Davenport MD) Acute worsening of stage 4 chronic kidney disease Adnexal cyst Anemia Chronic kidney disease, stage 4 (severe) CKD (chronic kidney disease), stage IV Dementia Diabetes HTN (hypertension) Hypertension Pacemaker Vitamin D deficiency Surgical History (Updated 12/26/19 @ 14:32 by Meghan Corral PA-C) History of repair of right hip joint History of right hip fracture History of total left knee replacement (TKR) Hx of cardiac pacemaker Family History Other Family history unobtainable Social History (Updated 12/26/19 @ 14:33 by Meghan Corral PA-C) Smoking Status: Never smoker Second Hand Exposure: No; Hx Alcohol Use: No Hx Substance Use: No Preferred Language: Scottish Communication Ability: Impaired Communication Ability Comment: Secondary to cognition Dial Brusher Required: No Beliefs That Will Affect Care: None marital status: / Current Living Situation: Alone Current Living Situation Comment: Caregivers around the clock current occupational status: retired Other Information That Helps Us Care for You: No Feels Safe at Home: Yes Safety Concerns: Feels Safe At This Time Review of Systems Review of Systems: All systems reviewed & are unremarkable except as noted in HPI & below Physical Exam Constitutional: WD/WN, vitals as above no acute distress Eyes: PERRL, conjunctivae normal, anicteric sclerae ENMT: external ear and nose normal, oropharynx normal Ears: no hearing impairment Neck: trachea midline Respiratory: no cough Auscultation: + diminished lung sounds Cardiovascular: RRR, no murmur, no edema Gastrointestinal (Abdomen): normal bowel sounds, soft, nontender, no hepatosplenomegaly Percussion/Palpation: abdomen nontender, no guarding and abdomen not rigid Musculoskeletal: Extremities: extremities normal to inspection Gait: normal gait Skin: no rashes, warm and dry Neurologic: moves all extremities and awake; no focal motor deficits Psychiatric: A+Ox3, euthymic affect Orientation: cooperative Affect: + flat affect dementia Results & Data ([facility]) Vital Signs (Past 12 Hours) Vital Signs Temp Pulse Pulse Resp BP Pulse Ox 12/27/19 11:05 36.5 C 62 20 171/67 H 95 12/27/19 08:20 37.0 C 62 20 159/71 H 94 12/27/19 03:54 36.4 C L 59 L 18 113/52 L 94 12/27/19 00:37 74 PG Care Time/CCT Total # of Minutes Spent Total Time Spent with Patient: Total time spent is greater than 50% in coordination of care (as documented) at patient's floor/unit and/or counseling patient: Coding Level of Care Code 62121 Inpt Consult Level 5 Diagnoses Acute kidney injury N17.9 Chronic kidney disease, stage 4 (severe) N18.4 Anemia D64.9 Hypertension I10 AMS (altered mental status) R41.82
[2019-12-27] MEDS ORDERED: EPOETIN ALFA 20,000 UNITS/ML VIAL SQ ONE (12:00)
[2019-12-27] MEDS: PIPERACILLIN/TAZOBACTAM 3.375 GM in DEXTROSE 5% 100 ML IV SCH ×2 (12:30→23:32)
[2019-12-27 13:57] LABS: Vitamin B12 362 pg/ml (211-911)
[2019-12-27 13:58] LABS: Folate (Folic Acid) > 24.00 ng/ml (>5.38)
--- NOTE | 2019-12-27 14:29 | Hospitalist Progress Note ---
Date of Service December 27, 2019 Assessment & Plan (1) Fever: (2) Vomiting: (3) Weakness: rule out bacteremia -This is an 89-year-old female who has significant past medical history of T2DM insulin-dependent, CKD stage IV, HTN, HLD, vascular dementia, iron efficiency anemia, cardiac pacemaker in situ who presents to ED secondary to weakness, altered metal status and emesis x2 days. -Patient presents to ED with elevated temp 37.9 C, initially on O2 via nasal cannula which was able to be weaned and during my evaluation she was saturating at 100% on room air. History obtained from family reports increased weakness for the past 2 days, worsening confusion with dementia at baseline and 2 episodes of emesis throughout night. Overall general decline from baseline. Unable to obtain history from patient given advanced dementia. She does not meet SIRS or sepsis criteria upon admission. Her lactic acid was normal although she did have mild elevation of her procalcitonin. Covid-[address] scan abdomen pelvis revealed rectosigmoid fecal impaction, mild proctitis and concern for bilateral pleural effusion and interlobular septal thickening concern for acute on chronic congestive change -she was started on Zosyn empirically -the admission blood cultures with 1 or 2 bottles positive for Gram Positive Cocci In Clusters but PCR is negative for MRSA, continue the empiric Zosyn for now. repeat blooc culture drawn on 12/27/2019 (4) Chronic kidney disease, stage 4 (severe): with Acute Kidney Injury -Baseline creatinine 2.8 to 3 presented BUN/creatinine 69 and 3.23 on 12/26/2019. She did receive 500 IVF while in ED, imaging revealing congestive changes, proBNP elevated 4754 (02/2019 was 591) -as per 12/27/2019 nephrology consult: Hold Lasix for now, however avoid IV fluid considering mild pulmonary congestion and pleural effusion. Increase amlodipine to 10 mg p.o. daily. encourage p.o. intake, continue to monitor renal function electrolyte. Considering underlying advanced dementia, progressive worsening of renal function and patient decision to not to consider renal replacement therapy in future, strongly suggest palliative care consultation and hospice care if no significant clinical improvement. Epogen 48784 units x1 dose today. Check PTH, phosphate. 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 This was also seen on the 06/06/[address] Follow-up with a nonemergent pelvic ultrasound is recommended for further assessment. (11) DVT prophylaxis: -SQ Heparin Follow up: PCP Dr. Aguirre upon discharge Admission and Anticipated Discharge Date Admission Date: December 26, 2019 Subjective dementia, confirmed by patient's daughter Virginia [phone]. Patient is poor historian. she is in no acute distress. she needed supervision and assistance to stand up from female nursing staff with daughter in room for medical doctor to assess the buttock area with some bruising and mild abrasion patient denies acute pain or dysuria. breathing on room air. no acute distress. patient's daughter expresses understanding of the planned course of treatment for the medical issues Review of Systems Review of Systems: All systems reviewed & are unremarkable except as noted in Subjective Physical Exam Constitutional: comfortable Eyes: PERRL, conjunctivae normal, anicteric sclerae EOM intact bilaterally ENMT: external ear and nose normal, oropharynx normal Neck: normal visual inspection Respiratory: normal respiratory effort, lungs clear to auscultation Cardiovascular: Rate/Rhythm: + bradycardic Gastrointestinal (Abdomen): normal bowel sounds, soft, nontender, no hepatosplenomegaly Musculoskeletal: no cyanosis or clubbing, extremities motor strength 5/5 Skin: the buttock area with some bruising and mild abrasion Neurologic: PERRL, EOMI, accommodation nl, no face palsy, no dysarthria moves all extremities Psychiatric: Orientation: alert and cooperative Results & Data Results & Data ([facility]) Vital Signs (Past 12 Hours) Vital Signs Temp Pulse Resp BP Pulse Ox 12/27/19 11:05 36.5 C 62 20 171/67 H 95 12/27/19 08:20 37.0 C 62 20 159/71 H 94 12/27/19 03:54 36.4 C L 59 L 18 113/52 L 94 (1) Dementia Dementia behavioral disturbance: without behavioral disturbance Dementia type: unspecified type Qualified Code(s): F03.90 - Unspecified dementia without behavioral disturbance
[2019-12-27] MEDS: TRAZODONE HCL 50 MG TAB PO SCH (20:51)
[2019-12-27] MEDS: METOPROLOL TARTRATE 25 MG TAB PO SCH (20:51)
[2019-12-28 06:13] LABS: Hematocrit (blood only) 19.4 % (37-47); Hemoglobin 6.4 g/dL (12.0-16.0); Mean Platelet Volume 9.7 fL (7.4-10.4); Platelet Count 158 K/uL (130-400); RDW Coefficient of Variation 14.1 % (11.5-14.5); RDW Standard Deviation 49.4 fL (36.4-46.3); White Blood Count 5.63 K/uL (4.8-10.8)
[2019-12-28 06:29] LABS: Albumin Level 2.4 gm/dl (3.4-5.0); BUN Creatinine Ratio 22.9 (10-20); Creatinine Clr Calc Pharmacy 9.7 ml/min; Est GFR (African American) 12.7; Est GFR (Non-African American) 10.9; Potassium 3.8 mmol/L (3.5-5.1)
[2019-12-28 06:32] LABS: Albumin Globulin Ratio 0.6 (0.9-2); Bilirubin,Total 0.3 mg/dl (0.2-1); Globulin 4.1 gm/dl (2.5-4.0); Phosphorus 3.7 mg/dl (2.5-4.9); Total Protein 6.5 gm/dl (6.4-8.2)
[2019-12-28 07:56] LABS: Hemoglobin 6.7 g/dL (12.0-16.0)
[2019-12-28] MEDS ORDERED: SODIUM CHLORIDE 0.9% 250 ML IV PRN (08:21)
--- NOTE | 2019-12-28 08:30 | Hospitalist Progress Note ---
Date of Service December 28, 2019 Assessment & Plan (1) Fever: (2) Vomiting: (3) Weakness: ruled out bacteremia -This is an 89-year-old female who has significant past medical history of T2DM insulin-dependent, CKD stage IV, HTN, HLD, vascular dementia, iron efficiency anemia, cardiac pacemaker in situ who presents to ED secondary to weakness, altered metal status and emesis x2 days. -Patient presents to ED with elevated temp 37.9 C, initially on O2 via nasal cannula which was able to be weaned to room air. History obtained from family reports increased weakness for the past 2 days, worsening confusion with dementia at baseline and 2 episodes of emesis throughout night. Overall general decline from baseline. Unable to obtain history from patient given advanced dementia. She does not meet SIRS or sepsis criteria upon admission. Her lactic acid was normal although she did have mild elevation of her procalcitonin. Covid-[address] scan abdomen pelvis revealed rectosigmoid fecal impaction, mild proctitis and concern for bilateral pleural effusion and interlobular septal thickening concern for acute on chronic congestive change -she was started on Zosyn empirically -the admission blood cultures with 1 or 2 bottles positive for Gram Positive Cocci In Clusters but PCR is negative for MRSA; finalized as Coag neg staph not lugdunensis -other cultures with no growth to date and likely the coag neg staph not lugdunesis is a contaminant; transition from IV Zosyn to ceftriaxone until further culture results (4) Chronic kidney disease, stage 4 (severe): with Acute Kidney Injury -Baseline creatinine 2.8 to 3 presented BUN/creatinine 69 and 3.23 on 12/26/2019. She did receive 500 IVF while in ED, imaging revealing congestive changes, proBNP elevated 4754 (02/2019 was 591) -as per 12/27/2019 nephrology consult: Hold Lasix for now, however avoid IV fluid considering mild pulmonary congestion and pleural effusion. Increase amlodipine to 10 mg p.o. daily. encourage p.o. intake, continue to monitor renal function electrolyte. Considering underlying advanced dementia, progressive worsening of renal function and patient decision to not to consider renal replacement therapy in future, strongly suggest palliative care consultation and hospice care if no significant clinical improvement. Epogen 37155 units x1 dose today. Check PTH, phosphate. low-potassium diet -12/28/2019 labs: creatinine 3.51 with mildly elevated PTH of 83.1 and normal serum phosphate (5) Anemia: -given Epogen on 12/27/2019 by nephrology -hemoglobin decreased on 12/28/2019 morning labs to between 6.4 to 6.7. FOBT negative. Discussed with patient's son Ac Byrd on the phone [phone] that patient will benefit from blood transfusion and Ac provided the consent because of patient's dementia. Ac also reported that patient has gotten blood transfusions in the past when blood count low. He thinks that the last blood transfusion was around 6 months ago. 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 This was also seen on the 06/06/[address] Follow- up with a nonemergent pelvic ultrasound is recommended for further assessment. (11) DVT prophylaxis: -SQ Heparin Follow up: PCP Dr. Aguirre upon discharge Admission and Anticipated Discharge Date Admission Date: December 26, 2019 Subjective -hemoglobin decreased on 12/28/2019 morning labs to between 6.4 to 6.7. FOBT negative. Discussed with patient's son Ac Byrd on the phone [phone] that patient will benefit from blood transfusion and Ac provided the consent because of patient's dementia. Ac also reported that patient has gotten blood transfusions in the past when blood count low. He thinks that the last blood transfusion was around 6 months ago. Review of Systems Review of Systems: All systems reviewed & are unremarkable except as noted in Subjective Physical Exam Constitutional: comfortable Eyes: PERRL, conjunctivae normal, anicteric sclerae EOM intact bilaterally ENMT: external ear and nose normal, oropharynx normal Neck: normal visual inspection Respiratory: normal respiratory effort, lungs clear to auscultation Cardiovascular: Rate/Rhythm: + bradycardic Gastrointestinal (Abdomen): normal bowel sounds, soft, nontender, no hepatosplenomegaly Musculoskeletal: no cyanosis or clubbing, extremities motor strength 5/5 Neurologic: PERRL, EOMI, accommodation nl, no face palsy, no dysarthria moves all extremities Psychiatric: Orientation: alert and cooperative Results & Data Results & Data ([facility]) Vital Signs (Past 12 Hours) Vital Signs Temp Pulse Pulse Resp BP BP Pulse Ox 12/28/19 07:25 36.9 C 62 18 178/71 H 93 12/28/19 03:23 36.6 C 69 18 169/63 H 94 12/27/19 23:15 36.5 C 73 73 20 171/62 H 95 12/27/19 20:48 36.5 C 69 20 186/67 H 93 (1) Dementia Dementia behavioral disturbance: without behavioral disturbance Dementia type: unspecified type Qualified Code(s): F03.90 - Unspecified dementia without behavioral disturbance
[2019-12-28] MEDS ORDERED: DiphenhydrAMINE HCL 50 MG/ML VIAL IV STA (08:40)
[2019-12-28] MEDS: DOCUSATE SODIUM/SENNA 50/8.6MG TAB PO SCH ×2 (08:53→20:17)
[2019-12-28] MEDS: ESCITALOPRAM OXALATE 10 MG TAB PO SCH (08:53)
[2019-12-28] MEDS: METOPROLOL TARTRATE 50 MG TAB PO SCH (08:53)
[2019-12-28] MEDS: AMLODIPINE BESYLATE 5 MG TAB PO SCH (08:54)
[2019-12-28] MEDS: HEPARIN SOD 5,000 UNIT/0.5 ML VIAL SQ SCH ×2 (08:54→20:55)
[2019-12-28] MEDS: POLYETHYLENE (MIRALAX) 17 GM PACK PO SCH ×2 (08:54→20:17)
[2019-12-28] MEDS: INSULIN ASPART 100 UNITS/ML 3 ML PEN SC SCH ×4 (08:59→20:55)
[2019-12-28] MEDS ORDERED: FUROSEMIDE 20 MG in SYRINGE 0 ML IV ONE (09:00)
[2019-12-28] MEDS: INSULIN GLARGINE SOLOSTAR 100 UNITS/ML 3 ML PEN SC SCH ×2 (09:02→20:55)
--- NOTE | 2019-12-28 10:07 | Nephrology Progress Note ---
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 On admission she was found have acute kidney injury which has been progressively worsening, creatinine was 3.3 on admission, worsened to 3.7. Electrolytes so far acceptable. Has chronic anemia. Respiratory status seems stable although CT chest showed mild pleural effusion and pulmonary congestion. No lower extremity edema. She has been on Lasix 20 mg p.o. daily at home. Acute kidney injury could be hemodynamically mediated with decreased p.o. intake at home, with underlying advanced CKD. No known history of any nephrotoxic medication exposure. CT abdomen pelvis was negative for any postrenal obstruction. has anemia with adequate iron stores. GFR staying pretty low with no improvement in renal function, electrolyte acceptable. Hemoglobin dropped further. Blood pressure remained elevated however volume status seems acceptable, no respiratory distress but continues to have mild pulmonary congestion. PTH just mildly elevated with normal phosphate. -- amlodipine to 10 mg p.o. daily, Received 1st dose this morning, expect blood pressure to improve -- encourage p.o. intake, continue to monitor renal function electrolyte. -- Epogen 04465 units x1 dose given on 12/27/2019, hemoglobin dropped, has adequate iron stores, B12 folate normal, FOBT negative, receiving 1 unit of blood transfusion. -- low-potassium diet will follow Admission and Anticipated Discharge Date Admission Date: December 26, 2019 Carolyn Connor was seen and evaluated in her room this morning. She was getting blood transfusion, lying in bed, seems comfortable. Denies any specific symptoms. Urine output over last 24 hour only 400 although unclear whether it was accurately measured. Blood pressure has been elevated. No significant improvement in renal function, electrolytes so far acceptable. Review of Systems Review of Systems: All systems reviewed & are unremarkable except as noted in HPI & below Physical Exam Constitutional: WD/WN, vitals as above + ill appearing; no acute distress Neck: normal visual inspection Respiratory: normal respiratory effort; no respiratory distress Auscultation: + crackles Cardiovascular: RRR, no murmur, no edema Skin: no rashes, warm and dry Neurologic: awake; no focal motor deficits Psychiatric: A+Ox3, euthymic affect Affect: + flat affect Results & Data ([facility]) Vital Signs (Past 12 Hours) Vital Signs Temp Pulse Pulse Resp BP BP BP 12/28/19 09:45 36.9 C 68 18 178/63 H 12/28/19 09:30 36.6 C 61 18 178/69 H 12/28/19 07:25 36.9 C 62 18 178/71 H 12/28/19 03:23 36.6 C 69 18 169/63 H 12/27/19 23:15 36.5 C 73 73 20 171/62 H Pulse Ox 12/28/19 09:45 95 12/28/19 09:30 12/28/19 07:25 93 12/28/19 03:23 94 12/27/19 23:15 95 PG Care Time/CCT Total # of Minutes Spent Total Time Spent with Patient: Total time spent is greater than 50% in coordination of care (as documented) at patient's floor/unit and/or counseling patient: Coding Level of Care Code 68675 Subseq Hosp Care Lvl 3 Diagnoses Acute kidney injury N17.9
[2019-12-28] MEDS: PIPERACILLIN/TAZOBACTAM 3.375 GM in DEXTROSE 5% 100 ML IV SCH (12:37)
[2019-12-28 14:10] LABS: Basophils # (auto) 0.01 K/uL (0-0.2); Basophils % (auto) 0.2 %; Eosinophils # (auto) 0.06 K/uL (0-0.5); Hematocrit (blood only) 24.7 % (37-47); Hemoglobin 8.3 g/dL (12.0-16.0); Immature Granulocytes # (auto) 0.07 K/uL (0.00-0.02); Immature Granulocytes % (auto) 1.1 %; Lymphocytes # (auto) 1.86 K/uL (1.2-3.4); Lymphocytes % (auto) 30.3 %; Mean Corpuscular Hemoglobin 31.6 pg (25-34); Mean Corpuscular Hgb Conc 33.6 g/dL (32-36); Mean Corpuscular Volume 93.9 fL (80-100); Mean Platelet Volume 9.9 fL (7.4-10.4); Monocytes # (auto) 0.53 K/uL (0.11-0.59); Monocytes % (auto) 8.6 %; Neutrophils # (auto) 3.61 K/uL (1.4-6.5); Neutrophils % (auto) 58.8 %; Platelet Count 163 K/uL (130-400); RDW Coefficient of Variation 15.8 % (11.5-14.5); Red Blood Count 2.63 M/uL (4.2-5.4); White Blood Count 6.14 K/uL (4.8-10.8)
[2019-12-28] MEDS: TRAZODONE HCL 50 MG TAB PO SCH (20:17)
[2019-12-28] MEDS: METOPROLOL TARTRATE 25 MG TAB PO SCH (20:17)
[2019-12-28] MEDS: cefTRIAXone SODIUM 2,000 MG in DEXTROSE 5% 50 ML IV SCH (23:48)
[2019-12-29 05:59] LABS: Hematocrit (blood only) 26.7 % (37-47); Hemoglobin 8.9 g/dL (12.0-16.0); Mean Corpuscular Hemoglobin 30.9 pg (25-34); Mean Corpuscular Hgb Conc 33.3 g/dL (32-36); Mean Corpuscular Volume 92.7 fL (80-100); Mean Platelet Volume 9.4 fL (7.4-10.4); Platelet Count 177 K/uL (130-400); RDW Coefficient of Variation 16.3 % (11.5-14.5); RDW Standard Deviation 55.5 fL (36.4-46.3); Red Blood Count 2.88 M/uL (4.2-5.4); White Blood Count 5.05 K/uL (4.8-10.8)
[2019-12-29 06:29] LABS: Albumin Level 2.6 gm/dl (3.4-5.0); BUN Creatinine Ratio 22.4 (10-20); Calcium 8.6 mg/dl (8.5-10.1); Creatinine Clr Calc Pharmacy 9.5 ml/min; Est GFR (African American) 12.6; Est GFR (Non-African American) 10.9; Potassium 3.6 mmol/L (3.5-5.1)
[2019-12-29 06:32] LABS: Albumin Globulin Ratio 0.6 (0.9-2); Bilirubin,Total 0.3 mg/dl (0.2-1); Globulin 4.4 gm/dl (2.5-4.0)
[2019-12-29] MEDS: INSULIN ASPART 100 UNITS/ML 3 ML PEN SC SCH ×4 (08:26→20:50)
[2019-12-29] MEDS: DOCUSATE SODIUM/SENNA 50/8.6MG TAB PO SCH ×2 (08:27→20:12)
[2019-12-29] MEDS: INSULIN GLARGINE SOLOSTAR 100 UNITS/ML 3 ML PEN SC SCH ×2 (08:27→20:49)
[2019-12-29] MEDS: POLYETHYLENE (MIRALAX) 17 GM PACK PO SCH ×2 (08:27→20:12)
[2019-12-29] MEDS: HEPARIN SOD 5,000 UNIT/0.5 ML VIAL SQ SCH ×2 (08:27→20:49)
[2019-12-29] MEDS: ESCITALOPRAM OXALATE 10 MG TAB PO SCH (08:28)
[2019-12-29] MEDS: AMLODIPINE BESYLATE 5 MG TAB PO SCH (08:28)
[2019-12-29] MEDS: METOPROLOL TARTRATE 50 MG TAB PO SCH (08:28)
--- NOTE | 2019-12-29 09:40 | Nephrology Progress Note ---
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 On admission she was found have acute kidney injury which has been progressively worsening, creatinine was 3.3 on admission, worsened to 3.7. Electrolytes so far acceptable. Has chronic anemia. Respiratory status seems stable although CT chest showed mild pleural effusion and pulmonary congestion. No lower extremity edema. She has been on Lasix 20 mg p.o. daily at home. Acute kidney injury with underlying advanced CKD. No known history of any nephrotoxic medication exposure. CT abdomen pelvis was negative for any postrenal obstruction. has anemia with adequate iron stores. GFR staying pretty low with no improvement in renal function, electrolyte acceptable. Hemoglobin improved after PRBC on 12/28/19. Blood pressure remained elevated however volume status seems acceptable, no respiratory distress but continues to have mild pulmonary congestion. PTH just mildly elevated with normal phosphate. -- start on Hydralazine 25 TID, continue amlodipine to 10 mg p.o. daily -- encourage p.o. intake, continue to monitor renal function electrolyte. -- Epogen 61551 units x1 dose given on 12/27/2019, hemoglobin dropped, has adequate iron stores, B12 folate normal, FOBT negative, receiving 1 unit of blood transfusion. -- low-potassium diet will follow Admission and Anticipated Discharge Date Admission Date: December 26, 2019 Carolyn Connor was seen and evaluated in her room this morning. She seems comfortable and denied any specific symptoms. Urine output not measured, but has been voiding few times. Blood pressure has been elevated but no significant volume overload. No significant improvement in renal function, electrolytes so far acceptable. Review of Systems Review of Systems: All systems reviewed & are unremarkable except as noted in HPI & below Physical Exam Constitutional: WD/WN, vitals as above no acute distress Eyes: PERRL, conjunctivae normal, anicteric sclerae Neck: normal visual inspection and trachea midline Respiratory: normal respiratory effort, lungs clear to auscultation normal respiratory effort; no respiratory distress and no cough Cardiovascular: RRR, no murmur, no edema Skin: no rashes, warm and dry Neurologic: moves all extremities and awake; no focal motor deficits Psychiatric: A+Ox3, euthymic affect Orientation: cooperative Affect: + flat affect Results & Data ([facility]) Vital Signs (Past 12 Hours) Vital Signs Temp Pulse Resp BP Pulse Ox 12/29/19 07:37 36.5 C 60 20 186/70 H 97 12/29/19 04:15 36.2 C L 59 L 20 191/70 H 99 12/29/19 00:00 36.8 C 72 18 162/68 H 92 PG Care Time/CCT Total # of Minutes Spent Total Time Spent with Patient: Total time spent is greater than 50% in coordination of care (as documented) at patient's floor/unit and/or counseling patient: Coding Level of Care Code 64993 Subseq Hosp Care Lvl 3 Diagnoses Acute kidney injury N17.9
--- NOTE | 2019-12-29 10:35 | Hospitalist Progress Note ---
Date of Service December 29, 2019 Assessment & Plan (1) Fever: (2) Vomiting: (3) Weakness: ruled out bacteremia -This is an 89-year-old female who has significant past medical history of T2DM insulin-dependent, CKD stage IV, HTN, HLD, vascular dementia, iron efficiency anemia, cardiac pacemaker in situ who presents to ED secondary to weakness, altered metal status and emesis x2 days. -Patient presents to ED with elevated temp 37.9 C, initially on O2 via nasal cannula which was able to be weaned to room air. History obtained from family reports increased weakness for the past 2 days, worsening confusion with dementia at baseline and 2 episodes of emesis throughout night. Overall general decline from baseline. Unable to obtain history from patient given advanced dementia. She does not meet SIRS or sepsis criteria upon admission. Her lactic acid was normal although she did have mild elevation of her procalcitonin. Covid-[address] scan abdomen pelvis revealed rectosigmoid fecal impaction, mild proctitis and concern for bilateral pleural effusion and interlobular septal thickening concern for acute on chronic congestive change -she was started on Zosyn empirically when admitted -the admission blood cultures with 1 or 2 bottles positive for Gram Positive Cocci In Clusters but PCR is negative for MRSA; finalized as Coag neg staph not lugdunensis -other cultures with no growth to date and likely the coag neg staph not lugdunesis is a contaminant; transition from IV Zosyn to ceftriaxone starting on 12/29/2019 until further culture results (4) Chronic kidney disease, stage 4 (severe): with Acute Kidney Injury -Baseline creatinine 2.8 to 3 presented BUN/creatinine 69 and 3.23 on 12/26/2019. She did receive 500 IVF while in ED, imaging revealing congestive changes, proBNP elevated 4754 (02/2019 was 591) -as per 12/27/2019 nephrology consult: Hold Lasix for now, however avoid IV fluid considering mild pulmonary congestion and pleural effusion. Increase amlodipine to 10 mg p.o. daily. encourage p.o. intake, continue to monitor renal function electrolyte. Considering underlying advanced dementia, progressive worsening of renal function and patient decision to not to consider renal replacement therapy in future, strongly suggest palliative care consultation and hospice care if no significant clinical improvement. Epogen 71137 units x1 dose today. Check PTH, phosphate. low-potassium diet -12/28/2019 labs: creatinine 3.51 with mildly elevated PTH of 83.1 and normal serum phosphate -12/29/2019 labs: creatinine staying flat at 3.53. discussed with patient's family daughter that perhaps patient has progessed tin the Chronic Kidney Disease. Patient's daughter affirms that patient would not want to be on dialysis (5) Anemia: -given Epogen on 12/27/2019 by nephrology -hemoglobin decreased on 12/28/2019 morning labs to between 6.4 to 6.7. FOBT negative. Discussed with patient's son Ac Byrd on the phone [phone] that patient will benefit from blood transfusion and Ac provided the consent because of patient's dementia. Ac also reported that patient has gotten blood transfusions in the past when blood count low. He thinks that the last blood transfusion was around 6 months ago. 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 This was also seen on the 06/06/[address] Follow- up with a nonemergent pelvic ultrasound is recommended for further assessment. (11) DVT prophylaxis: -SQ Heparin Follow up: PCP Dr. Aguirre upon discharge Admission and Anticipated Discharge Date Admission Date: December 26, 2019 Subjective creatinine staying flat at 3.53. discussed with patient's family daughter that perhaps patient has progessed tin the Chronic Kidney Disease. Patient's daughter affirms that patient would not want to be on dialysis. Hgb above 8 on 12/29/2019, monitor the patient and repeat CBC on 12/30/2019 patient otherwise in good spirits. she denies any acute distress or any symptoms. no pain. no dizziness. no shortness of breath. no vomiting. Review of Systems Review of Systems: All systems reviewed & are unremarkable except as noted in Subjective Physical Exam Constitutional: comfortable Eyes: PERRL, conjunctivae normal, anicteric sclerae EOM intact bilaterally ENMT: external ear and nose normal, oropharynx normal Neck: normal visual inspection Respiratory: normal respiratory effort, lungs clear to auscultation Cardiovascular: Rate/Rhythm: + bradycardic Gastrointestinal (Abdomen): normal bowel sounds, soft, nontender, no he patosplenomegaly Musculoskeletal: no cyanosis or clubbing, extremities motor strength 5/5 Neurologic: PERRL, EOMI, accommodation nl, no face palsy, no dysarthria moves all extremities Psychiatric: Orientation: alert and cooperative Results & Data Results & Data ([facility]) Vital Signs (Past 12 Hours) Vital Signs Temp Pulse Resp BP Pulse Ox 12/29/19 07:37 36.5 C 60 20 186/70 H 97 12/29/19 04:15 36.2 C L 59 L 20 191/70 H 99 12/29/19 00:00 36.8 C 72 18 162/68 H 92 (1) Dementia Dementia behavioral disturbance: without behavioral disturbance Dementia type: unspecified type Qualified Code(s): F03.90 - Unspecified dementia without behavioral disturbance
[2019-12-29] MEDS: METOPROLOL TARTRATE 25 MG TAB PO SCH (20:46)
[2019-12-29] MEDS: TRAZODONE HCL 50 MG TAB PO SCH (20:48)
[2019-12-29] MEDS: cefTRIAXone SODIUM 2,000 MG in DEXTROSE 5% 50 ML IV SCH (23:48)
[2019-12-30 06:30] LABS: Hematocrit (blood only) 27.3 % (37-47); Hemoglobin 9.1 g/dL (12.0-16.0); Mean Corpuscular Hemoglobin 31.1 pg (25-34); Mean Corpuscular Hgb Conc 33.3 g/dL (32-36); Mean Corpuscular Volume 93.2 fL (80-100); Mean Platelet Volume 9.2 fL (7.4-10.4); Platelet Count 178 K/uL (130-400); RDW Coefficient of Variation 15.9 % (11.5-14.5); RDW Standard Deviation 53.9 fL (36.4-46.3); Red Blood Count 2.93 M/uL (4.2-5.4); White Blood Count 4.97 K/uL (4.8-10.8)
[2019-12-30] MEDS: METOPROLOL TARTRATE 50 MG TAB PO SCH (07:44)
[2019-12-30] MEDS: ESCITALOPRAM OXALATE 10 MG TAB PO SCH (07:44)
[2019-12-30] MEDS: AMLODIPINE BESYLATE 5 MG TAB PO SCH (07:44)
[2019-12-30] MEDS: INSULIN GLARGINE SOLOSTAR 100 UNITS/ML 3 ML PEN SC SCH (07:45)
[2019-12-30] MEDS: POLYETHYLENE (MIRALAX) 17 GM PACK PO SCH (07:46)
[2019-12-30] MEDS: DOCUSATE SODIUM/SENNA 50/8.6MG TAB PO SCH (07:46)
[2019-12-30] MEDS: HEPARIN SOD 5,000 UNIT/0.5 ML VIAL SQ SCH (08:10)
[2019-12-30] MEDS: INSULIN ASPART 100 UNITS/ML 3 ML PEN SC SCH ×2 (08:10→12:48)
--- NOTE | 2019-12-30 10:18 | Hospitalist Progress Note ---
Date of Service December 30, 2019 Assessment & Plan (1) Fever: (2) Vomiting: (3) Weakness: ruled out bacteremia -This is an 89-year-old female who has significant past medical history of T2DM insulin-dependent, CKD stage IV, HTN, HLD, vascular dementia, iron efficiency anemia, cardiac pacemaker in situ who presents to ED secondary to weakness, altered metal status and emesis x2 days. -Patient presents to ED with elevated temp 37.9 C, initially on O2 via nasal cannula which was able to be weaned to room air. History obtained from family reports increased weakness for the past 2 days, worsening confusion with dementia at baseline and 2 episodes of emesis throughout night. Overall general decline from baseline. Unable to obtain history from patient given advanced dementia. She does not meet SIRS or sepsis criteria upon admission. Her lactic acid was normal although she did have mild elevation of her procalcitonin. Covid-[address] scan abdomen pelvis revealed rectosigmoid fecal impaction, mild proctitis and concern for bilateral pleural effusion and interlobular septal thickening concern for acute on chronic congestive change -she was started on Zosyn empirically when admitted -the admission blood cultures with 1 or 2 bottles positive for Gram Positive Cocci In Clusters but PCR is negative for MRSA; finalized as Coag neg staph not lugdunensis -other cultures with no growth to date and likely the coag neg staph not lugdunesis is a contaminant; transitioned from IV Zosyn to ceftriaxone starting on 12/29/2019 -other blood cultures no growth to date so likely that the ceftriaxone can be stopped on 12/30/2019 (4) Chronic kidney disease, stage 4 (severe): with Acute Kidney Injury -Baseline creatinine 2.8 to 3 presented BUN/creatinine 69 and 3.23 on 12/26/2019. She did receive 500 IVF while in ED, imaging revealing congestive changes, proBNP elevated 4754 (02/2019 was 591) -as per 12/27/2019 nephrology consult: Hold Lasix for now, however avoid IV fluid considering mild pulmonary congestion and pleural effusion. Increase amlodipine to 10 mg p.o. daily. encourage p.o. intake, continue to monitor renal function electrolyte. Considering underlying advanced dementia, progressive worsening of renal function and patient decision to not to consider renal replacement therapy in future, strongly suggest palliative care consultation and hospice care if no significant clinical improvement. Epogen 14243 units x1 dose today. Check PTH, phosphate. low-potassium diet -12/28/2019 labs: creatinine 3.51 with mildly elevated PTH of 83.1 and normal serum phosphate -12/29/2019 labs: creatinine staying flat at 3.53. discussed with patient's family daughter that perhaps patient has progessed tin the Chronic Kidney Disease. Patient's daughter affirms that patient would not want to be on dialysis in future. her home dose lasix of 20 mg oral daily has been held while in hospital so far (5) Anemia: -given Epogen on 12/27/2019 by nephrology -hemoglobin decreased on 12/28/2019 morning labs to between 6.4 to 6.7. FOBT negative. Discussed with patient's son Ac Byrd on the phone [phone] that patient will benefit from blood transfusion and Ac provided the consent because of patient's dementia. Ac also reported that patient has gotten blood transfusions in the past when blood count low. He thinks that the last blood transfusion was around 6 months ago. -Patient received 1 unit of PRBC on 12/27/2001 -Hgb above 8 on 12/29/2019, monitor the patient and repeat CBC on 12/30/2019 with hemoglobin stable as 9.1 (6) Hypertension: -continue amlodipine and metoprolol, increase amlodipine to 10 mg daily - given Lasix 20 mg IV x 1 after blood transfusion on 12/28/2019 (7) Diabetes: Type 2 diabetes mellitus with longterm current use of insulin -Lantus/NovoLog per protocol (Home regimen is 10 units of Lantus daily) (8) Constipation: -admission imaging reveals rectosigmoid fecal impaction moderate constipation -bowel regimen, monitor bowel movements (9) Dementia: -Vascular dementia, confirmed by patient's daughter Virginia [phone] -normal serum B12 and normal serum folate levels (10) Adnexal cyst: -A 5.9 cm minimally complex cystic lesion in the right adnexa is likely related to the right ovary. This was also seen on the 06/06/[address] Follow- up with a nonemergent pelvic ultrasound is recommended for further assessment. (11) DVT prophylaxis: -SQ Heparin Follow up: PCP Dr. Aguirre upon discharge Admission and Anticipated Discharge Date Admission Date: December 26, 2019 Subjective no acute events overnight. on room air. no chest pain. no abdomen pain. no dizz iness. no headache. patient awaiting for her family members to see her. will discuss with patient's family about patient's current hospital stability despite overall progression of the CKD Review of Systems Review of Systems: All systems reviewed & are unremarkable except as noted in Subjective Physical Exam Constitutional: comfortable Eyes: PERRL, conjunctivae normal, anicteric sclerae EOM intact bilaterally ENMT: external ear and nose normal, oropharynx normal Neck: normal visual inspection Respiratory: normal respiratory effort, lungs clear to auscultation Cardiovascular: Rate/Rhythm: + bradycardic Gastrointestinal (Abdomen): normal bowel sounds, soft, nontender, no hepatosplenomegaly Musculoskeletal: no cyanosis or clubbing, extremities motor strength 5/5 Neurologic: PERRL, EOMI, accommodation nl, no face palsy, no dysarthria moves all extremities Psychiatric: Orientation: alert and cooperative Results & Data Results & Data ([facility]) Vital Signs (Past 12 Hours) Vital Signs Temp Pulse Resp BP Pulse Ox 12/30/19 07:21 36.4 C L 60 16 178/67 H 95 12/30/19 03:51 62 18 170/66 H 98 12/29/19 23:05 36.8 C 62 18 166/70 H 96 (1) Dementia Dementia behavioral disturbance: without behavioral disturbance Dementia type: unspecified type Qualified Code(s): F03.90 - Unspecified dementia without behavioral disturbance
--- NOTE | 2019-12-30 11:11 | Nephrology Progress Note ---
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 Patient has refused dialysis. Non-oliguric. Volume status acceptable. Goals of care are predominately palliative. Nikolas did not endorse any complaints or concerns with regard to her kidney function this morning. Diuretics have been held. BP acceptable. (2) Chronic kidney disease, stage 4 (severe): (3) Acute worsening of stage 4 chronic kidney disease: Medications appropriately dosed for kidney function. (4) Anemia: Epogen 09085 units x1 dose given on 12/27/2019. Received 1 u PRBC transfusion support. No signs of GIB Admission and Anticipated Discharge Date Admission Date: December 26, 2019 Subjective No acute events overnight. Nikolas feels well this morning. She is breathing comfortably. Appetite good. No pain. Voiding without difficulty. Review of Systems Review of Systems: All systems reviewed & are unremarkable except as noted in HPI & below Physical Exam Constitutional: well developed, + thin and + frail appearing; no acute distress Eyes: + anicteric sclerae; no corneal abnormality ENMT: Mouth: no oral mucosal abnormality and oral mucous membranes not dry Neck: normal visual inspection and trachea midline Respiratory: normal respiratory effort Auscultation: lungs clear to auscultation bilaterally and + crackles (few right base) Cardiovascular: Rate/Rhythm: + bradycardic Heart Sounds: normal S1 and normal S2 Vessels: no JVD Extremities: no edema Musculoskeletal: Extremities: no cyanosis and no clubbing Skin: normal turgor; no lesions Neurologic: Motor/Sensory: no tremor and no asterixis Psychiatric: Orientation: alert and oriented x 3 Results & Data ([facility]) Vital Signs (Past 12 Hours) Vital Signs Temp Pulse Resp BP Pulse Ox 12/30/19 07:21 36.4 C L 60 16 178/67 H 95 12/30/19 03:51 62 18 170/66 H 98 12/29/19 23:05 36.8 C 62 18 166/70 H 96 Laboratory Results Laboratory Results - last 24 hr 12/29/19 12/29/19 12/29/19 11:20 16:40 17:04 WBC RBC Hgb Hct MCV MCH MCHC RDW Std Deviation RDW Coeff of Kylah Plt Count MPV POC Glucose 152 H 142 H 140 H 12/30/19 12/30/19 06:17 07:43 WBC 4.97 RBC 2.93 L Hgb 9.1 L Hct 27.3 L MCV 93.2 MCH 31.1 MCHC 33.3 RDW Std Deviation 53.9 H RDW Coeff of Kylah 15.9 H Plt Count 178 MPV 9.2 POC Glucose 103 H PG Care Time/CCT Total # of Minutes Spent Total Time Spent with Patient: Total time spent is greater than 50% in coordination of care (as documented) at patient's floor/unit and/or counseling patient: Coding Level of Care Code 86192 Subseq Hosp Care Lvl 3 Diagnoses Acute kidney injury N17.9 Chronic kidney disease, stage 4 (severe) N18.4 Acute worsening of stage 4 chronic kidney disease N18.4 Anemia D64.9
--- NOTE | 2019-12-30 15:52 | Discharge Summary ---
Date of Service December 30, 2019 Admission HPI Per Admitting Provider This is an 89-year-old female who has significant past medical history of T2DM insulin-dependent, CKD stage IV, HTN, HLD, vascular dementia, iron efficiency anemia, cardiac pacemaker in situ who presents to ED secondary to weakness, altered metal status and emesis x2 days. Son and daughter are at bedside. History limited from patient secondary to vascular dementia and most history obtained from family members at bedside. Patient lives at home with 24/7 caregivers. She most recently had been on hospice but has since been taking off approximately 1 week ago. She was on hospice secondary to worsening dementia per family. On Wednesday patient had episode of fall in the evening. She did not lose consciousness, fall was unwitnessed and mostly left with some bruising. Wednesday evening while asleep she did have episode of emesis when family found her in the morning. She also had episode of emesis x1 yesterday and when daughter went to see her this morning she was lying in bed with vomit on her and the bed. Family illnesses over the past 2 days they have noticed increasing weakness and difficulty with ambulation. Typically she ambulates with a walker with assistance. She is confused at baseline and is unable to have meaningful conversation but they do also feel she is more confused. Patient currently denies any pain. ROS unobtainable secondary to cognition. Principal Diagnosis Weakness Chronic kidney disease, stage 4 (severe) with Acute Kidney Injury Anemia Hypertension (secondary to chronic kidney disease) Type 2 diabetes mellitus with lobsterman current use of insulin Constipation Discharge Exam Constitutional comfortable Eyes PERRL, conjunctivae normal, anicteric sclerae EOM intact bilaterally ENMT external ear and nose normal, oropharynx normal Neck normal visual inspection Respiratory normal respiratory effort, lungs clear to auscultation Cardiovascular Rate/Rhythm: + bradycardic Gastrointestinal (Abdomen) normal bowel sounds, soft, nontender, no hepatosplenomegaly Musculoskeletal no cyanosis or clubbing, extremities motor strength 5/5 Neurologic PERRL, EOMI, accommodation nl, no face palsy, no dysarthria moves all extremities Psychiatric Orientation: alert and cooperative Discharge Data Allergies Allergy/AdvReac Type Severity Reaction Status Date / Time latex Allergy Mild Rash Verified 12/26/19 12:43 lovastatin AdvReac Mild "doesn't Verified 12/26/19 12:43 feel well" silicone AdvReac Mild Hives Verified 12/26/19 12:43 cephalexin [From Keflex] AdvReac HIVES Verified 12/26/19 12:43 Consultations 12/26/19 13:51 ED Decision to Admit Stat 12/26/19 15:10 Consult Case Management - Discharge Planning Routine 12/26/19 16:37 Consult Nephrology Routine Ordered Studies 12/26/19 09:49 CT abd pelvis wo con Stat CT head/brain wo con Stat 12/26/19 14:06 CT chest wo con Stat Hospital Course (1) Fever: (2) Vomiting: (3) Weakness: ruled out bacteremia -This is an 89-year-old female who has significant past medical history of T2DM insulin-dependent, CKD stage IV, HTN, HLD, vascular dementia, iron efficiency anemia, cardiac pacemaker in situ who presents to ED secondary to weakness, al tered metal status and emesis x2 days. -Patient presents to ED with elevated temp 37.9 C, initially on O2 via nasal cannula which was able to be weaned to room air. History obtained from family reports increased weakness for the past 2 days, worsening confusion with dementia at baseline and 2 episodes of emesis throughout night. Overall general decline from baseline. Unable to obtain history from patient given advanced dementia. She does not meet SIRS or sepsis criteria upon admission. Her lactic acid was normal although she did have mild elevation of her procalcitonin. Covid-[address] scan abdomen pelvis revealed rectosigmoid fecal impaction, mild proctitis and concern for bilateral pleural effusion and interlobular septal thickening concern for acute on chronic congestive change -she was started on Zosyn empirically when admitted -the admission blood cultures with 1 or 2 bottles positive for Gram Positive Cocci In Clusters but PCR is negative for MRSA; finalized as Coag neg staph not lugdunensis -other cultures with no growth to date and likely the coag neg staph not lugdunesis is a contaminant; transitioned from IV Zosyn to ceftriaxone starting on 12/29/2019 -other blood cultures no growth to date so likely that the ceftriaxone can be stopped on 12/30/2019 (4) Chronic kidney disease, stage 4 (severe): with Acute Kidney Injury -Baseline creatinine 2.8 to 3 presented BUN/creatinine 69 and 3.23 on 12/26/2019. She did receive 500 IVF while in ED, imaging revealing congestive changes, proBNP elevated 4754 (02/2019 was 591) -as per 12/27/2019 nephrology consult: Hold Lasix for now, however avoid IV fluid considering mild pulmonary congestion and pleural effusion. Increase amlodipine to 10 mg p.o. daily. encourage p.o. intake, continue to monitor renal function electrolyte. Considering underlying advanced dementia, progressive worsening of renal function and patient decision to not to consider renal rep lacement therapy in future, strongly suggest palliative care consultation and hospice care if no significant clinical improvement. Epogen 61210 units x1 dose today. Check PTH, phosphate. low-potassium diet -12/28/2019 labs: creatinine 3.51 with mildly elevated PTH of 83.1 and normal serum phosphate -12/29/2019 labs: creatinine staying flat at 3.53. discussed with patient's family of progression in the chronic kidney disease and they have affirmed that patient would not wish to be on dialysis -12/30/2019 [facility] nephrology consult even commented that from a renal standpoint that " Goals of care are predominately palliative." However patient is in no acute distress at this time. Her hemoglobin is 9.1 on 12/30/2019 (she had 1 unit PRBC given on 12/28/2019 due to anemia from chronic disease kidney, and she also had epogen 2000 units on 12/27/2019) Patient's son and medical decisions maker discussed with hospitalist medical doctor of interest for hospital case fitter to help with re-obtaining the hospice services that patient was previously on. manager relationship was notified and she has set up patient with [facility] Palliative care program In the interim, patient can be discharged from the hospital and follow up with primary care doctor and Maebl Bales nephrology doctor. (5) Anemia: -given Epogen on 12/27/2019 by nephrology -hemoglobin decreased on 12/28/2019 morning labs to between 6.4 to 6.7. FOBT negative. Discussed with patient's son Ac Byrd on the phone [phone] that patient will benefit from blood transfusion and Ac provided the consent because of patient's dementia. Ac also reported that patient has gotten blood transfusions in the past when blood count low. He thinks that the last blood transfusion was around 6 months ago. -Patient received 1 unit of PRBC on 12/27/2001 -Hgb above 8 on 12/29/2019, monitor the patient and repeat CBC on 12/30/2019 with hemoglobin stable as 9.1 (6) Hypertension: Hypertension (secondary to chronic kidney disease) - given Lasix 20 mg IV x 1 after blood transfusion on 12/28/2019 -discharge on amlodipine 10 mg daily to help with blood pressure control (which are elevated from the chronic kidney disease) and hydralazine 25 mg TID. medications sent electronically to [email or web address] on [address] [place] [address] (7) Diabetes: Type 2 diabetes mellitus with care home current use of insulin -Lantus/NovoLog per protocol (Home regimen is 10 units of Lantus daily) (8) Constipation: -admission imaging reveals rectosigmoid fecal impaction moderate constipation -bowel regimen was given while in the hospital (9) Dementia: -Vascular dementia, confirmed by patient's daughter Virgniia [phone] -normal serum B12 and normal serum folate levels (10) Adnexal cyst: -A 5.9 cm minimally complex cystic lesion in the right adnexa is likely related to the right ovary. This was also seen on the 06/06/[address] Follow- up with a nonemergent pelvic ultrasound is recommended for further assessment if patient and family wishes for further workup as outpatient (11) DVT prophylaxis: -SQ Heparin while in the hospital Follow up: PCP Dr. Aguirre upon discharge Total Time Total Time Spent Total Time Spent (In Minutes): 40 minutes Total Time Includes: Examination of the Patient, Discharge Planning, Medication Reconciliation and Communication With Other Providers Discharge Plan Discharge Items Patient Disposition: Hospice - Home Reason For Visit: ALTERED MENTAL STATUS, HYPOXIA Discharge Diagnosis: Weakness Chronic kidney disease, stage 4 (severe) with Acute Kidney Injury Anemia Hypertension (secondary to chronic kidney disease) Type 2 diabetes mellitus with lobsterman current use of insulin Constipation Condition on Discharge: Fair Activity: Resume your previous activity Non-emergency contact: Primary Care Provider and Water Quality Technician Call non-emergency contact if: you have any medication questions Follow-up/Referrals: Terell Worley MD [Physician] - 01/04/20 2:[address] Aguirre DO [Primary Care Provider] - 01/02/20 12:00 pm (Date & Time 01/02/2020 12:[address]za Aguirre, DO Department [facility] [address], [place] ) Diet: Carb Consistent or DM2 Addtl Attending Provider Instructions: -12/28/2019 labs: creatinine 3.51 with mildly elevated PTH of 83.1 and normal serum phosphate -12/29/2019 labs: creatinine staying flat at 3.53. discussed with patient's family of progression in the chronic kidney disease and they have affirmed that patient would not wish to be on dialysis -12/30/2019 [facility] nephrology consult even commented that from a renal standpoint that " Goals of care are predominately palliative." However patient is in no acute distress at this time. Her hemoglobin is 9.1 on 12/30/2019 (she had 1 unit PRBC given on 12/28/2019 due to anemia from chronic disease kidney, and she also had epogen 2000 units on 12/27/2019) Patient's son and medical decisions maker discussed with hospitalist medical doctor of interest for hospital case fitter to help with re-obtaining the hospice services that patient was previously on. manager relationship was notified and she has set up patient with [facility] Palliative care program In the interim, patient can be discharged from the hospital and follow up with primary care doctor and [facility] nephrology doctor. Addtl Material Carrier Provider Instructions: other issues discharge on amlodipine 10 mg daily to help with blood pressure control (which are elevated from the chronic kidney disease) and hydralazine 25 mg TID. medications sent electronically to [email or web address] on [address] [place] [id number] Adnexal cyst: -A 5.9 cm minimally complex cystic lesion in the right adnexa is likely related to the right ovary. This was also seen on the 06/06/[address] Follow- up with a nonemergent pelvic ultrasound is recommended for further assessment if desired Pending Studies at Discharge: No Stand-Alone Forms: [employer] Medications and DC Order Prescriptions: New hydralazine 25 mg Tablet 25 mg PO TID 30 Days Qty: 90 RF: 0 amlodipine [Norvasc] 5 mg Tablet 10 mg PO DAILY 30 Days Qty: 60 RF: 0 Continued escitalopram oxalate 5 mg tablet 5 mg PO QAM RF: 0 Lantus U-100 Insulin 100 unit/mL solution 10 units SUBCUT QAM RF: 0 trazodone 50 mg Tablet 50 mg PO HS RF: 0 metoprolol tartrate 50 mg Tablet 25 mg PO PM RF: 0 metoprolol tartrate 50 mg Tablet 50 mg PO DAILY RF: 0 cranberry extract-vitamin C [Azo Cranberry Plus Vit C] 250-60 mg Capsule 1 cap PO BID RF: 0 Discontinued amlodipine 5 mg Tablet 5 mg PO DAILY RF: 0 furosemide 20 mg Tablet 20 mg PO DAILY RF: 0 Discharge Orders: Discharge Order (Routine); Ordered 12/30/19 Ordered By: Evert Stanton Admission Data Admit Date/Time: 12/26/19 13:37 Attending Provider: Evert Stanton Admit Provider: Bree Porter Primary Care Provider: Court Aguirre Other Providers: Bree Porter ; Verna Dowell Other Interventions: Discharge Summary Assessment (RN) Last Done: 12/30/19 14:43
== END 2019-12-30 15:20 | disposition hospice, home (50) | DRG 684 ==
LOC: ED 09:36 → 2N 13:37 → SUATTDRO 13:37 → 2N 14:31

== ENCOUNTER 2020-02-11 19:01 | Inpatient (IN) ==
--- NOTE | 2020-02-11 19:10 | Emergency Department Note ---
Impression & Plan Sepsis, Altered mental status, CKD (chronic kidney disease), stage IV, Pneumonia, Colitis ED Provider Note NAME: CHRISTIAN VANESSA AGE: 89 SEX: F ARRIVES VIA: Ambulance INFORMANT: Patient, ED PROVIDER(S): Steve Elizabeth MD CHIEF COMPLAINT: AMS, fever PLAN: Disposition: Admit MEDICAL DECISION MAKING: The patient is a pleasant 89-year-old woman with a past medical history of dementia/vascular, type 2 diabetes on insulin, CKD stage IV, hypertension, hyperlipidemia, iron deficiency anemia, history of cardiac pacemaker with recent admission from 12/25-12/29 for symptomatic anemia requiring transfusion who presents emerged department from home after was found by family today with altered mental status from baseline. On arrival the patient is confused, uncomfortable, febrile to 37.9. She appears clinically dry. She has ecchymosis to her gluteal region suggestive of poor mobility but no overt decubiti. She has ecchymosis of the left forearm without gross deformity. There also appears to be some dependent edema of the left abdominal wall. She is moving all extremities equally with generalized weakness. She did have foul smelling liquid brown stool upon rectal temperature measurement. Of note, sepsis is suspected however given the patient's liquid brown stool will await C. difficile results to inform antibiotics. Additionally given her stage IV CKD will proceed with cautious fluid administration to avoid overload. WBC 12.5. H/H 7.8/24.5 decreased from prior value in setting of recent admission with transfusion however MCV is macrocytic today. Platelets within normal limits. VBG is unremarkable. Chemistry with mild metabolic acidosis with bicarb of 18 but normal anion gap. Potassium is 5.9 and the patient was administered calcium as well as insulin however EKG is paced. Creatinine is 4.3 increased from recent values closer to 3 and overall increased from prior baseline of 2.5. To 1.6, within normal limits. LFTs unremarkable. Troponin is marginally elevated at 0.071 likely demand in the setting of suspected sepsis. Procalcitonin 0.84. UA without convincing evidence of infection. C. difficile was negative. COVID-19 PCR was negative. Influenza was negative. Chest x-ray without overt cardiopulmonary process per my preliminary review. However CT done pelvis was performed and per preliminary stat read report does not demonstrate bibasilar consolidations with a mild patchy right basilar simon undglass infiltrate which given the report of apparently being force fed oatmeal prior to arrival may represent aspiration. Otherwise there is possibility of mild diverticulitis/colitis. Given the patient's C. difficile was negative she was ordered for Zosyn and vancomycin empirically given concern for possible early sepsis. Case was discussed with Dr. Morgan, [facility], who will evaluate the patient for admission. Triage Nursing notes reviewed and agree them. Additional history obtained from EMS Prior medical records reviewed Vital Signs: reviewed and remarkable for no significant abnormalities Differential diagnosis: Infection, dehydration, metabolic abnormality, hypo/hyperglycemia, electrolyte disturbance, anemia, hypoxia, cardiac sources, intracerebral event, toxicologic, neurologic, as well as other pathologies. ER treatment provided: See below. Diagnostics interpreted by me: ECG: Gtqnfd-barytz-Afxycldshli-paced rhythm, 84 bpm, no ectopy, no overt acute ischemia. Cardiac Monitoring: An order for continuous cardiac monitoring was placed and demonstrated Jjshcu-fbckxp-Uljijohjbrc-paced rhythm, 84 bpm, no ectopy Laboratory studies: See below Imaging studies: [facility] Preliminary Findings Only See Final Report For Complete Findings CT ABDOMEN & PELVIS Without Contrast: Comparison 12/26/2019. Moderate pleural effusions with bibasilar consolidation which may be compressive atelectasis. Mild patchy right basilar ground glass infiltrate. Atrophic pancreas, as before. Bilateral renal hypodensities. No significant hydronephrosis. No abdominal aortic aneurysm. No dilated bowel. The appendix is not identified. Colonic diverticulosis. Thickening versus incomplete distention of the descending colon, sigmoid colon and rectum. Unable to exclude mild diverticulitis or nonspecific colitis/proctitis in the appropriate clinical setting. 6 cm right adnexal cystic lesion, as before. Anasarca. Right hip orthopedic hardware, as before. Multilevel degenerative changes and left convex scoliosis of the thoracolumbar spine. Radiologist: Joel Martinez M.D. Study ready at 20:44 and initial results transmitted at 20:53 Consultation(s): Case [facility], who will evaluate the patient for admission. HPI: The patient is a pleasant 89-year-old woman with a past medical history of dementia/vascular, type 2 diabetes on insulin, CKD stage IV, hypertension, hyperlipidemia, iron deficiency anemia, history of cardiac pacemaker with recent admission from 12/25-12/29 for symptomatic anemia requiring transfusion who presents emerged department from home after was found by family today with altered mental status from baseline. ROS: See above HPI for pertinent positives & negatives. A total of 10 systems reviewed and were otherwise negative. PAST MEDICAL HISTORY:See Below PAST SURGICAL HISTORY:See Below FAMILY HISTORY:See Below SOCIAL HISTORY:See Below HOME MEDICATIONS:See Below ALLERGIES:See Below VITALS:See Below PHYSICAL EXAMINATION: GENERAL: Awake, alert to self, ill-appearing, in no distress HENT: Normocephalic, atraumatic. Oropharynx with dry mucous membranes and other villarreal unremarkable. EYES: Normal conjunctiva. Sclera non-icteric. NECK: Supple. No nuchal rigidity. FROM. No JVD. RESPIRATORY: Clear to auscultation. CARDIAC: Regular rate, normal rhythm. Extremities warm and well perfused. Pulses equal. ABDOMEN: Soft, non-distended. No tenderness to palpation. No rebound or guarding. Dependent edema/anasarca of the left abdominal wall. RECTAL: Ecchymosis to her gluteal region suggestive of poor mobility but no overt decubiti. Fowl smelling liquid brown stool. MUSCULOSKELETAL: Chest examination reveals no tenderness. The back is symmetrical on inspection without obvious abnormality. There is no CVA tenderness to palpation. No joint edema. LOWER EXTREMITIES: Calves are equal size bilaterally and non-tender. No edema. No discoloration. NEURO: Normal sensorium. No sensory or motor deficits noted. Moving all extremities equally with generalized weakness. SKIN: No rash or jaundice noted. Ecchymosis of the left forearm without gross deformity. ED COURSE: Critical Care: I have personally spent greater than 75 minutes of critical care time in the direct management of this patient. This includes bedside care, interpretation of diagnostic studies, and testing, discussion with consultants, patient, and family members, and other required patient management activities. This 75 minutes is in excess of all separately billable procedures. Steve Elizabeth MD Past Med/Surg History Medical History (Updated 02/12/20 @ 05:54 by Steve Elizabeth MD) Acute worsening of stage 4 chronic kidney disease Adnexal cyst AMS (altered mental status) Anemia Chronic kidney disease, stage 4 (severe) CKD (chronic kidney disease), stage IV Dementia Diabetes Fever HTN (hypertension) Hypertension Pacemaker Vitamin D deficiency Vomiting Surgical History History of repair of right hip joint History of right hip fracture History of total left knee replacement (TKR) Hx of cardiac pacemaker Family History Other Family history unobtainable Social History Smoking Status: Unknown if ever smoked Second Hand Exposure: No; Hx Alcohol Use: No Hx Substance Use: No Preferred Language: Maltese Communication Ability: Effective Animal Attendant Required: No Beliefs That Will Affect Care: None marital status: / Current Living Situation: Alone Current Living Situation Comment: has caregivers current occupational status: retired Other Information That Helps Us Care for You: No Feels Safe at Home: Yes Safety Concerns: Feels Safe At This Time Assistive Devices: Glasses Allergies Allergies Allergy/AdvReac Type Severity Reaction Status Date / Time latex Allergy Mild Rash Verified 01/04/20 14:55 lovastatin AdvReac Mild "doesn't Verified 01/04/20 14:55 feel well" silicone AdvReac Mild Hives Verified 01/04/20 14:55 cephalexin [From Keflex] AdvReac HIVES Verified 01/04/20 14:55 Home Meds Home Medications Medication Instructions Recorded Confirmed insulin glargine 100 unit/mL 10 units SUBCUT QAM ml 12/30/18 02/11/20 subcutaneous solution escitalopram oxalate 5 mg tablet 5 mg PO QAM 09/15/19 02/11/20 cranberry extract-vitamin C [Azo 1 cap PO BID 12/26/19 02/11/20 Cranberry Plus Vit C] metoprolol tartrate 25 mg PO PM 12/26/19 02/11/20 metoprolol tartrate 50 mg PO QAM 12/26/19 02/11/20 trazodone 50 mg PO HS 12/26/19 02/11/20 amlodipine [Norvasc] 10 mg PO DAILY 02/11/20 02/11/20 calcium carbonate-vitamin D2 1 tab PO DAILY 02/11/20 02/11/20 [Calcium 500 with Vitamin D2] docusate sodium 200 mg PO QPM 02/11/20 02/11/20 hydralazine 25 mg PO TID 02/11/20 02/11/20 lidocaine 1 applic TOPICAL DAILY 02/11/20 02/11/20 nystatin 1 applic TOPICAL BID 02/11/20 02/11/20 Previous Rx's Medication Instructions Recorded ferrous sulfate 325 mg (65 mg 325 mg PO DAILY #90 tab 01/04/20 iron) tablet Results & Data (ED) Vital Signs Vital Signs - 24 hr 02/11/20 19:09 02/11/20 19:12 02/11/20 19:15 Temperature Temperature Source Pulse Rate 84 85 Pulse Rate [Right Finger] Pulse Rate from SpO2 Sensor 85 Respiratory Rate 17 23 21 Respiratory Effort / Characteristics Blood Pressure 127/57 L Blood Pressure [Right Arm] Blood Pressure Mean 68 Blood Pressure Mean [Right Arm] Blood Pressure Position [Right Arm] Pulse Oximetry 93 Oxygen Delivery Method Sepsis Recent Fever Within 48 Hours Sepsis New/Unexplained Change in Mental Status Sepsis Action Taken by Nursing 02/11/20 19:30 02/11/20 19:45 02/11/20 19:48 Temperature 37.9 C H Temperature Source Rectal Pulse Rate 88 80 85 Pulse Rate [Right Finger] Pulse Rate from SpO2 Sensor 87 79 Respiratory Rate 22 18 18 Respiratory Effort / Characteristics Blood Pressure 127/57 L Blood Pressure [Right Arm] Blood Pressure Mean 80 Blood Pressure Mean [Right Arm] Blood Pressure Position [Right Arm] Pulse Oximetry 92 93 93 Oxygen Delivery Method Room Air Sepsis Recent Fever Within 48 Hours Yes Sepsis New/Unexplained Change in Mental Status N/A Sepsis Action Taken by Nursing No Action Required 02/11/20 20:00 02/11/20 20:02 02/11/20 20:03 Temperature Temperature Source Pulse Rate 92 H 79 Pulse Rate [Right Finger] Pulse Rate from SpO2 Sensor 81 77 Respiratory Rate 15 16 Respiratory Effort / Characteristics Non-Labored Blood Pressure 164/75 H Blood Pressure [Right Arm] Blood Pressure Mean 104 Blood Pressure Mean [Right Arm] Blood Pressure Position [Right Arm] Pulse Oximetry 92 93 93 Oxygen Delivery Method Sepsis Recent Fever Within 48 Hours Sepsis New/Unexplained Change in Mental Status Sepsis Action Taken by Nursing 02/11/20 20:04 02/11/20 20:15 02/11/20 20:40 Temperature Temperature Source Pulse Rate 76 79 Pulse Rate [Right Finger] Pulse Rate from SpO2 Sensor 76 Respiratory Rate 14 14 Respiratory Effort / Characteristics Blood Pressure Blood Pressure [Right Arm] Blood Pressure Mean Blood Pressure Mean [Right Arm] Blood Pressure Position [Right Arm] Pulse Oximetry 93 93 Oxygen Delivery Method Sepsis Recent Fever Within 48 Hours Sepsis New/Unexplained Change in Mental Status Sepsis Action Taken by Nursing 02/11/20 20:45 02/11/20 21:00 02/11/20 21:15 Temperature Temperature Source Pulse Rate 76 78 77 Pulse Rate [Right Finger] Pulse Rate from SpO2 Sensor 76 78 77 Respiratory Rate 18 14 15 Respiratory Effort / Characteristics Blood Pressure 152/69 H Blood Pressure [Right Arm] Blood Pressure Mean 95 Blood Pressure Mean [Right Arm] Blood Pressure Position [Right Arm] Pulse Oximetry 93 94 95 Oxygen Delivery Method Sepsis Recent Fever Within 48 Hours Sepsis New/Unexplained Change in Mental Status Sepsis Action Taken by Nursing 02/11/20 21:30 02/11/20 21:45 02/11/20 22:11 Temperature Temperature Source Pulse Rate 72 68 Pulse Rate [Right Finger] 68 Pulse Rate from SpO2 Sensor 72 69 Respiratory Rate 18 18 18 Respiratory Effort / Characteristics Blood Pressure 121/54 L 111/51 L Blood Pressure [Right Arm] 111/57 L Blood Pressure Mean 80 74 Blood Pressure Mean [Right Arm] 75 Blood Pressure Position [Right Arm] Sitting Pulse Oximetry 95 95 95 Oxygen Delivery Method Room Air Sepsis Recent Fever Within 48 Hours Sepsis New/Unexplained Change in Mental Status Sepsis Action Taken by Nursing 02/11/20 22:15 02/11/20 22:21 Temperature Temperature Source Pulse Rate 70 Pulse Rate [Right Finger] Pulse Rate from SpO2 Sensor 68 Respiratory Rate 18 Respiratory Effort / Characteristics Blood Pressure 112/61 Blood Pressure [Right Arm] Blood Pressure Mean 82 Blood Pressure Mean [Right Arm] Blood Pressure Position [Right Arm] Pulse Oximetry 96 96 Oxygen Delivery Method Room Air Sepsis Recent Fever Within 48 Hours Sepsis New/Unexplained Change in Mental Status Sepsis Action Taken by Nursing Laboratory Data Attestation: I reviewed the patient's lab results. Result diagrams: 02/11/20 19:36 02/11/20 19:36 Lab Results 02/11/20 02/11/20 02/11/20 Range/Units 19:25 19:25 19:25 WBC (4.8-10.8) K/uL RBC (4.2-5.4) M/uL Hgb (12.0-16.0) g/dL POC Hgb (12.0-16.0) g/dl Hct (37-47) % POC Hct (37-47) % MCV (80-100) fL MCH (25-34) pg MCHC (32-36) g/dL RDW Std Deviation (36.4-46.3) fL RDW Coeff of Kylah (11.5-14.5) % Plt Count (130-400) K/uL MPV (7.4-10.4) fL Immature Gran % (Auto) % Neut % (Auto) % Lymph % (Auto) % [place] % (Auto) % Eos % (Auto) % Baso % (Auto) % Neut # (Auto) (1.4-6.5) K/uL Lymph # (Auto) (1.2-3.4) K/uL [place] # (Auto) (0.11-0.59) K/uL Eos # (Auto) (0-0.5) K/uL Baso # (Auto) (0-0.2) K/uL Immature Gran # (Auto) (0.00-0.02) K/uL Macrocytosis PT (9.0-12.0) Seconds INR (0.9-1.1) APTT (21.0-31.0) Seconds PTT Ratio VBG pH (7.36-7.41) VBG pCO2 (38-50) mmHg VBG pO2 mmHg VBG HCO3 mmol/L VBG O2 Saturation % VBG Base Excess mEq/L Barometric Pressure mm/Hg POC Sodium (135-144) mmol/L Sodium (136-145) mmol/L POC Potassium (3.3-5.0) mmol/L Potassium (3.5-5.1) mmol/L POC Chloride (101-112) mmol/L Chloride (98-107) mmol/L Carbon Dioxide (21-32) mmol/L POC Total CO2 (24-31) mmol/L Anion Gap (3-11) POC Anion Gap (16-25) mmol/L POC BUN (7-18) mg/dl BUN (7-18) mg/dl Creatinine (0.6-1.2) mg/dl POC Creatinine (0.6-1.3) mg/dl Est Cr Clr Drug Dosing ml/min Est GFR ( Amer) Est GFR (Non-Af Amer) BUN/Creatinine Ratio (10-20) Glucose (70-99) mg/dl POC Glucose (other) (70-99) mg/dl Lactate (0.4-2.0) mmol/L Calcium (8.5-10.1) mg/dl POC Ioniz Calcium Leeanne (1.12-1.32) mmol/l Phosphorus (2.5-4.9) mg/dl Magnesium (1.8-2.4) mg/dl Total Bilirubin (0.2-1) mg/dl Direct Bilirubin (0-0.2) mg/dl AST (15-37) U/L ALT (12-78) U/L Alkaline Phosphatase (45-117) U/L Troponin I (0-0.045) ng/ml Total Protein (6.4-8.2) gm/dl Albumin (3.4-5.0) gm/dl Globulin (2.5-4.0) gm/dl Albumin/Globulin Ratio (0.9-2) Procalcitonin (0-0.5) ng/ml Urine Color Yellow Urine Appearance Clear (Clear) Urine pH 5.0 (4.5-7.5) Ur Specific [place] 1.015 (1.000-1.030) Urine Protein 2+ H (Negative) Urine Glucose (UA) Negative (Negative) Urine Ketones Negative (Negative) Urine Blood Negative (Negative) Urine Nitrite Negative (Negative) Urine Bilirubin Negative (Negative) Urine Urobilinogen Negative (Negative) Ur Leukocyte Esterase Negative (Negative) Urine WBC (Auto) 1-5 (0-5) /hpf Urine RBC (Auto) 0-4 (0-4) /hpf U Hyaline Cast (Auto) 1-5 (0-5) /lpf U Epithel Cells (Auto) 10-20 H (0-5) /lpf Urine Bacteria (Auto) Negative (Negative) Urine Yeast Not Reportable Stl C. diff Tox B Gene Negative Cdiff Gene (Neg) COVID-19 Eval Order Covid19 Done at [facility] COVID-19 PCR (Negative) Influ A Molecular Assay (Negative) Influ B Molecular Assay (Negative) 02/11/20 02/11/20 02/11/20 Range/Units 19:25 19:25 19:36 WBC 12.57 H (4.8-10.8) K/uL RBC 2.44 L (4.2-5.4) M/uL Hgb 7.8 L (12.0-16.0) g/dL POC Hgb (12.0-16.0) g/dl Hct 24.5 L (37-47) % POC Hct (37-47) % MCV 100.4 H (80-100) fL MCH 32.0 (25-34) pg MCHC 31.8 L (32-36) g/dL RDW Std Deviation 56.3 H (36.4-46.3) fL RDW Coeff of Kylah 15.3 H (11.5-14.5) % Plt Count 208 (130-400) K/uL MPV 10.4 (7.4-10.4) fL Immature Gran % (Auto) 0.3 % Neut % (Auto) 78.7 % Lymph % (Auto) 14.7 % [place] % (Auto) 6.3 % Eos % (Auto) 0.0 % Baso % (Auto) 0.0 % Neut # (Auto) 9.89 H (1.4-6.5) K/uL Lymph # (Auto) 1.85 (1.2-3.4) K/uL [place] # (Auto) 0.79 H (0.11-0.59) K/uL Eos # (Auto) 0.00 (0-0.5) K/uL Baso # (Auto) 0.00 (0-0.2) K/uL Immature Gran # (Auto) 0.04 H (0.00-0.02) K/uL Macrocytosis Present PT (9.0-12.0) Seconds INR (0.9-1.1) APTT (21.0-31.0) Seconds PTT Ratio VBG pH (7.36-7.41) VBG pCO2 (38-50) mmHg VBG pO2 mmHg VBG HCO3 mmol/L VBG O2 Saturation % VBG Base Excess mEq/L Barometric Pressure mm/Hg POC Sodium (135-144) mmol/L Sodium (136-145) mmol/L POC Potassium (3.3-5.0) mmol/L Potassium (3.5-5.1) mmol/L POC Chloride (101-112) mmol/L Chloride (98-107) mmol/L Carbon Dioxide (21-32) mmol/L POC Total CO2 (24-31) mmol/L Anion Gap (3-11) POC Anion Gap (16-25) mmol/L POC BUN (7-18) mg/dl BUN (7-18) mg/dl Creatinine (0.6-1.2) mg/dl POC Creatinine (0.6-1.3) mg/dl Est Cr Clr Drug Dosing ml/min Est GFR ( Amer) Est GFR (Non-Af Amer) BUN/Creatinine Ratio (10-20) Glucose (70-99) mg/dl POC Glucose (other) (70-99) mg/dl Lactate (0.4-2.0) mmol/L Calcium (8.5-10.1) mg/dl POC Ioniz Calcium Leeanne (1.12-1.32) mmol/l Phosphorus (2.5-4.9) mg/dl Magnesium (1.8-2.4) mg/dl Total Bilirubin (0.2-1) mg/dl Direct Bilirubin (0-0.2) mg/dl AST (15-37) U/L ALT (12-78) U/L Alkaline Phosphatase (45-117) U/L Troponin I (0-0.045) ng/ml Total Protein (6.4-8.2) gm/dl Albumin (3.4-5.0) gm/dl Globulin (2.5-4.0) gm/dl Albumin/Globulin Ratio (0.9-2) Procalcitonin (0-0.5) ng/ml Urine Color Urine Appearance (Clear) Urine pH (4.5-7.5) Ur Specific [place] (1.000-1.030) Urine Protein (Negative) Urine Glucose (UA) (Negative) Urine Ketones (Negative) Urine Blood (Negative) Urine Nitrite (Negative) Urine Bilirubin (Negative) Urine Urobilinogen (Negative) Ur Leukocyte Esterase (Negative) Urine WBC (Auto) (0-5) /hpf Urine RBC (Auto) (0-4) /hpf U Hyaline Cast (Auto) (0-5) /lpf U Epithel Cells (Auto) (0-5) /lpf Urine Bacteria (Auto) (Negative) Urine Yeast Stl C. diff Tox B Gene (Neg) COVID-19 Eval Order COVID-19 PCR NEGATIVE (Negative) Influ A Molecular Assay Negative (Negative) Influ B Molecular Assay Negative (Negative) 02/11/20 02/11/20 02/11/20 Range/Units 19:36 19:36 19:36 WBC (4.8-10.8) K/uL RBC (4.2-5.4) M/uL Hgb (12.0-16.0) g/dL POC Hgb (12.0-16.0) g/dl Hct (37-47) % POC Hct (37-47) % MCV (80-100) fL MCH (25-34) pg MCHC (32-36) g/dL RDW Std Deviation (36.4-46.3) fL RDW Coeff of Kylah (11.5-14.5) % Plt Count (130-400) K/uL MPV (7.4-10.4) fL Immature Gran % (Auto) % Neut % (Auto) % Lymph % (Auto) % [place] % (Auto) % Eos % (Auto) % Baso % (Auto) % Neut # (Auto) (1.4-6.5) K/uL Lymph # (Auto) (1.2-3.4) K/uL [place] # (Auto) (0.11-0.59) K/uL Eos # (Auto) (0-0.5) K/uL Baso # (Auto) (0-0.2) K/uL Immature Gran # (Auto) (0.00-0.02) K/uL Macrocytosis PT 11.7 (9.0-12.0) Seconds INR 1.1 (0.9-1.1) APTT 27.9 (21.0-31.0) Seconds PTT Ratio 1.0 VBG pH (7.36-7.41) VBG pCO2 (38-50) mmHg VBG pO2 mmHg VBG HCO3 mmol/L VBG O2 Saturation % VBG Base Excess mEq/L Barometric Pressure mm/Hg POC Sodium (135-144) mmol/L Sodium 139 (136-145) mmol/L POC Potassium (3.3-5.0) mmol/L Potassium 5.9 H (3.5-5.1) mmol/L POC Chloride (101-112) mmol/L Chloride 113 H (98-107) mmol/L Carbon Dioxide 18 L (21-32) mmol/L POC Total CO2 (24-31) mmol/L Anion Gap 8.0 (3-11) POC Anion Gap (16-25) mmol/L POC BUN (7-18) mg/dl BUN 93 H (7-18) mg/dl Creatinine 4.32 H (0.6-1.2) mg/dl POC Creatinine (0.6-1.3) mg/dl Est Cr Clr Drug Dosing 8.3 ml/min Est GFR ( Amer) 9.9 Est GFR (Non-Af Amer) 8.5 BUN/Creatinine Ratio 21.6 H (10-20) Glucose 206 H (70-99) mg/dl POC Glucose (other) (70-99) mg/dl Lactate 1.6 (0.4-2.0) mmol/L Calcium 8.6 (8.5-10.1) mg/dl POC Ioniz Calcium Leeanne (1.12-1.32) mmol/l Phosphorus 3.4 (2.5-4.9) mg/dl Magnesium 2.1 (1.8-2.4) mg/dl Total Bilirubin 0.3 (0.2-1) mg/dl Direct Bilirubin 0.1 (0-0.2) mg/dl AST 13 L (15-37) U/L ALT 8 L (12-78) U/L Alkaline Phosphatase 101 (45-117) U/L Troponin I 0.071 H* (0-0.045) ng/ml Total Protein 7.2 (6.4-8.2) gm/dl Albumin 2.7 L (3.4-5.0) gm/dl Globulin 4.5 H (2.5-4.0) gm/dl Albumin/Globulin Ratio 0.6 L (0.9-2) Procalcitonin (0-0.5) ng/ml Urine Color Urine Appearance (Clear) Urine pH (4.5-7.5) Ur Specific [place] (1.000-1.030) Urine Protein (Negative) Urine Glucose (UA) (Negative) Urine Ketones (Negative) Urine Blood (Negative) Urine Nitrite (Negative) Urine Bilirubin (Negative) Urine Urobilinogen (Negative) Ur Leukocyte Esterase (Negative) Urine WBC (Auto) (0-5) /hpf Urine RBC (Auto) (0-4) /hpf U Hyaline Cast (Auto) (0-5) /lpf U Epithel Cells (Auto) (0-5) /lpf Urine Bacteria (Auto) (Negative) Urine Yeast Stl C. diff Tox B Gene (Neg) COVID-19 Eval Order COVID-19 PCR (Negative) Influ A Molecular Assay (Negative) Influ B Molecular Assay (Negative) 02/11/20 02/11/20 02/11/20 Range/Units 19:36 19:50 20:04 WBC (4.8-10.8) K/uL RBC (4.2-5.4) M/uL Hgb (12.0-16.0) g/dL POC Hgb 7.8 L (12.0-16.0) g/dl Hct (37-47) % POC Hct 23 L (37-47) % MCV (80-100) fL MCH (25-34) pg MCHC (32-36) g/dL RDW Std Deviation (36.4-46.3) fL RDW Coeff of Kylah (11.5-14.5) % Plt Count (130-400) K/uL MPV (7.4-10.4) fL Immature Gran % (Auto) % Neut % (Auto) % Lymph % (Auto) % [place] % (Auto) % Eos % (Auto) % Baso % (Auto) % Neut # (Auto) (1.4-6.5) K/uL Lymph # (Auto) (1.2-3.4) K/uL [place] # (Auto) (0.11-0.59) K/uL Eos # (Auto) (0-0.5) K/uL Baso # (Auto) (0-0.2) K/uL Immature Gran # (Auto) (0.00-0.02) K/uL Macrocytosis PT (9.0-12.0) Seconds INR (0.9-1.1) APTT (21.0-31.0) Seconds PTT Ratio VBG pH 7.34 L (7.36-7.41) VBG pCO2 32 L (38-50) mmHg VBG pO2 39 mmHg VBG HCO3 17 mmol/L VBG O2 Saturation 71.0 % VBG Base Excess -7.7 mEq/L Barometric Pressure 732.3 mm/Hg POC Sodium 141 (135-144) mmol/L Sodium (136-145) mmol/L POC Potassium 6.0 H (3.3-5.0) mmol/L Potassium (3.5-5.1) mmol/L POC Chloride 113 H (101-112) mmol/L Chloride (98-107) mmol/L Carbon Dioxide (21-32) mmol/L POC Total CO2 17 L (24-31) mmol/L Anion Gap (3-11) POC Anion Gap 17.0 (16-25) mmol/L POC BUN 105 H* (7-18) mg/dl BUN (7-18) mg/dl Creatinine (0.6-1.2) mg/dl POC Creatinine 4.4 H (0.6-1.3) mg/dl Est Cr Clr Drug Dosing ml/min Est GFR ( Amer) Est GFR (Non-Af Amer) BUN/Creatinine Ratio (10-20) Glucose (70-99) mg/dl POC Glucose (other) 216 H (70-99) mg/dl Lactate (0.4-2.0) mmol/L Calcium (8.5-10.1) mg/dl POC Ioniz Calcium Leeanne 1.27 (1.12-1.32) mmol/l Phosphorus (2.5-4.9) mg/dl Magnesium (1.8-2.4) mg/dl Total Bilirubin (0.2-1) mg/dl Direct Bilirubin (0-0.2) mg/dl AST (15-37) U/L ALT (12-78) U/L Alkaline Phosphatase (45-117) U/L Troponin I (0-0.045) ng/ml Total Protein (6.4-8.2) gm/dl Albumin (3.4-5.0) gm/dl Globulin (2.5-4.0) gm/dl Albumin/Globulin Ratio (0.9-2) Procalcitonin 0.84 H (0-0.5) ng/ml Urine Color Urine Appearance (Clear) Urine pH (4.5-7.5) Ur Specific [place] (1.000-1.030) Urine Protein (Negative) Urine Glucose (UA) (Negative) Urine Ketones (Negative) Urine Blood (Negative) Urine Nitrite (Negative) Urine Bilirubin (Negative) Urine Urobilinogen (Negative) Ur Leukocyte Esterase (Negative) Urine WBC (Auto) (0-5) /hpf Urine RBC (Auto) (0-4) /hpf U Hyaline Cast (Auto) (0-5) /lpf U Epithel Cells (Auto) (0-5) /lpf Urine Bacteria (Auto) (Negative) Urine Yeast Stl C. diff Tox B Gene (Neg) COVID-19 Eval Order COVID-19 PCR (Negative) Influ A Molecular Assay (Negative) Influ B Molecular Assay (Negative) Administered Medications Sodium Chloride (Nss 1000ml) 1,000 mls @ 50 mls/hr IV .Q20H BRUCE Stop: 03/12/20 23:55 Last Infusion: 02/12/20 04:54 Dose: 50 mls/hr Documented by: [id number] Infusion: 02/12/20 01:39 Dose: 0 mls/hr Documented by: [id number] Admin: 02/12/20 00:17 Dose: 50 mls/hr Documented by: [id number] Sodium Chloride (Nss) 250 mls @ 15 mls/hr IV .[id number] PRN PRN Reason: For Transfusion Stop: 03/12/20 23:55 Last Admin: 02/12/20 01:40 Dose: 15 mls/hr Documented by: [id number] Insulin Aspart (Insulin Aspart 100 Units/Ml 3 Ml Pen) 0 units SC Q6 BRUCE Stop: 03/13/20 00:00 Last Admin: 02/12/20 01:03 Dose: Not Given Documented by: [id number] Cosigned by: [id number] Metoprolol Tartrate (Metoprolol Tartrate 1 Mg/Ml Vial) 2.5 mg IV Q6 BRUCE Stop: 03/13/20 00:00 Last Admin: 02/12/20 01:00 Dose: 2.5 mg Documented by: [id number] Discontinued Medications Dextrose (Dextrose 50% 50 Ml Syringe) 25 ml IV NOW ONE Stop: 02/11/20 20:47 Last Admin: 02/11/20 21:04 Dose: 25 ml Documented by: [id number] Sodium Chloride (Nss) 500 mls @ 999 mls/hr IV .Q31M ONE Stop: 02/11/20 19:57 Last Infusion: 02/11/20 20:30 Dose: 0 mls/hr Documented by: [id number] Admin: 02/11/20 19:30 Dose: 999 mls/hr Documented by: [id number] Acetaminophen (Ofirmev) 1,000 mg in 100 mls @ 400 mls/hr IV NOW STA Stop: 02/11/20 19:41 Last Infusion: 02/11/20 20:30 Dose: 0 mls/hr Documented by: [id number] Admin: 02/11/20 19:30 Dose: 400 mls/hr Documented by: [id number] Calcium Gluconate 2,000 mg/ (Sodium Chloride) 70 mls @ 240 mls/hr IV NOW STA Stop: 02/11/20 20:07 Last Infusion: 02/11/20 20:30 Dose: 0 mls/hr Documented by: [id number] Admin: 02/11/20 20:06 Dose: 240 mls/hr Documented by: [id number] Sodium Chloride (Nss) 500 mls @ 999 mls/hr IV .Q31M ONE Stop: 02/11/20 21:19 Last Infusion: 02/11/20 23:09 Dose: 0 mls/hr Documented by: [id number] Admin: 02/11/20 22:19 Dose: 999 mls/hr Documented by: [id number] Piperacillin Sod/Tazobactam Sod (Zosyn) 4.5 gm in 120 mls @ 240 mls/hr IV NOW ONE Stop: 02/11/20 21:47 Last Infusion: 02/11/20 22:24 Dose: 0 mls/hr Documented by: [id number] Admin: 02/11/20 21:24 Dose: 240 mls/hr Documented by: [id number] Vancomycin HCl 1,500 mg/ (Sodium Chloride) 530 mls @ 200 mls/hr IV NOW ONE Stop: 02/11/20 23:56 Last Infusion: 02/12/20 00:00 Dose: 0 mls/hr Documented by: [id number] Admin: 02/11/20 21:39 Dose: 200 mls/hr Documented by: [id number] Insulin Human Regular (Novolin-R Insulin Per Unit Charge) 10 units IV NOW STA Stop: 02/11/20 20:47 Last Admin: 02/11/20 21:05 Dose: 10 units Documented by: [id number] Cosigned by: [id number] Discharge Plan Visit Data Chief Complaint: Shortness of Breath/Dyspnea Stated Complaint: LEFT ARM SWELLING, FEVER ED Provider: Steve Elizabeth Discharge Problem: Sepsis, Altered mental status, CKD (chronic kidney disease), stage IV, Pneumonia, Colitis Patient Disposition: Admitted As Inpatient Discharge Instructions Interventions: ED Discharge Assessment Last Done: 02/11/20 23:11 Discharge Problem: Sepsis Qualifiers: Sepsis type: sepsis due to unspecified organism Sepsis acute organ dysfunction status: with acute organ dysfunction Severe sepsis acute organ dysfunction type: acute renal failure Acute renal failure type: unspecified Severe sepsis shock status: without septic shock Qualified Code(s): A41.9 - Sepsis, unspecified organism
[2020-02-11] MEDS ORDERED: ACETAMINOPHEN 1,000 MG/100 ML VIAL IV STA (19:27)
[2020-02-11] MEDS ORDERED: SODIUM CHLORIDE 0.9% 500 ML IV ONE ×2 (19:27→20:49)
[2020-02-11 19:51] LABS: Hematocrit (blood only) 24.5 % (37-47); Hemoglobin 7.8 g/dL (12.0-16.0); Mean Corpuscular Hgb Conc 31.8 g/dL (32-36); Mean Corpuscular Volume 100.4 fL (80-100); Mean Platelet Volume 10.4 fL (7.4-10.4); Platelet Count 208 K/uL (130-400); RDW Coefficient of Variation 15.3 % (11.5-14.5); RDW Standard Deviation 56.3 fL (36.4-46.3); Red Blood Count 2.44 M/uL (4.2-5.4); White Blood Count 12.57 K/uL (4.8-10.8)
[2020-02-11] MEDS ORDERED: CALCIUM GLUCONATE 10% 2,000 MG in SODIUM CHLORIDE 0.9% 50 ML IV STA (19:53)
[2020-02-11 20:02] LABS: INR 1.1 (0.9-1.1); Partial Thromboplastin Time 27.9 Seconds (21.0-31.0); Prothrombin Time 11.7 Seconds (9.0-12.0)
[2020-02-11 20:03] LABS: iSTAT Creatinine 4.4 mg/dl (0.6-1.3); iSTAT Hemoglobin 7.8 g/dl (12.0-16.0); iSTAT Ionized Calcium 1.27 mmol/l (1.12-1.32)
[2020-02-11 20:03] LABS: Appearance Urine Clear (Clear); Bacteria Urine Automated Negative (Negative); Bilirubin Urine Negative (Negative); Blood Urine Negative (Negative); Color Urine Yellow; Glucose Urine UA Negative (Negative); Ketones Urine Negative (Negative); Leukocyte Esterase Urine Negative (Negative); Nitrite Urine Negative (Negative); Protein Urine 2+ (Negative); RBC Urine Automated 0-4 /hpf (0-4); Specific Gravity Urine 1.015 (1.000-1.030); Urobilinogen Urine Negative (Negative)
[2020-02-11 20:09] LABS: Albumin Level 2.7 gm/dl (3.4-5.0); BUN Creatinine Ratio 21.6 (10-20); Bilirubin Direct 0.1 mg/dl (0-0.2); Calcium 8.6 mg/dl (8.5-10.1); Creatinine Clr Calc Pharmacy 8.3 ml/min; Est GFR (African American) 9.9; Est GFR (Non-African American) 8.5; Magnesium 2.1 mg/dl (1.8-2.4); Potassium 5.9 mmol/L (3.5-5.1)
[2020-02-11 20:25] LABS: Albumin Globulin Ratio 0.6 (0.9-2); Bilirubin,Total 0.3 mg/dl (0.2-1); Globulin 4.5 gm/dl (2.5-4.0); Phosphorus 3.4 mg/dl (2.5-4.9); Total Protein 7.2 gm/dl (6.4-8.2); Troponin I 0.071 ng/ml (0-0.045)
[2020-02-11 20:27] LABS: Base Excess VBG -7.7 mEq/L; pH VBG 7.34 (7.36-7.41)
[2020-02-11] MEDS ORDERED: DEXTROSE 50% 50 ML SYRINGE IV ONE (20:46)
[2020-02-11] MEDS ORDERED: NovoLIN-R INSULIN PER UNIT CHARGE IV STA (20:46)
[2020-02-11 20:56] LABS: Influenza A virus by PCR Negative (Negative); Influenza B virus by PCR Negative (Negative)
[2020-02-11] MEDS ORDERED: VANCOMYCIN CONSULT ACTIVE PRN (21:18)
[2020-02-11] MEDS ORDERED: PIPERACILL/TAZOBAC CONSULT ACTIVE PRN (21:18)
[2020-02-11] MEDS ORDERED: VANCOMYCIN HCL 1,500 MG in SODIUM CHLORIDE 0.9% 500 ML IV ONE (21:18)
[2020-02-11] MEDS ORDERED: PIPERACILLIN/TAZOBACTAM 4.5 GM/120 ML BAG IV ONE (21:18)
[2020-02-11 21:20] LABS: Immature Granulocytes # (auto) 0.04 K/uL (0.00-0.02); Immature Granulocytes % (auto) 0.3 %; Lymphocytes # (auto) 1.85 K/uL (1.2-3.4); Lymphocytes % (auto) 14.7 %; Macrocytosis Present; Monocytes # (auto) 0.79 K/uL (0.11-0.59); Monocytes % (auto) 6.3 %; Neutrophils # (auto) 9.89 K/uL (1.4-6.5); Neutrophils % (auto) 78.7 %
[2020-02-11] MEDS ORDERED: SODIUM CHLORIDE 0.9% 250 ML IV PRN (23:56)
[2020-02-11] MEDS ORDERED: ACETAMINOPHEN 325 MG TAB PO PRN (23:56)
[2020-02-11] MEDS ORDERED: NITROGLYCERIN SL 0.4 MG/TAB TAB SL PRN (23:56)
[2020-02-11] MEDS ORDERED: POLYETHYLENE (MIRALAX) 17 GM PACK PO PRN (23:56)
[2020-02-11] MEDS ORDERED: ONDANSETRON INJ 2 MG/ML 2 ML VIAL IV PRN (23:56)
[2020-02-11] MEDS ORDERED: SODIUM CHLORIDE 0.9% 1000ML 1,000 ML IV SCH (23:56)
[2020-02-12] MEDS ORDERED: GLUCOSE 10 TABS/TUBE PO PRN (00:15)
[2020-02-12] MEDS ORDERED: Nursing to Pharmacy Communication SCH (00:15)
[2020-02-12] MEDS ORDERED: CARBOHYDRATES FOR HYPOGLYCEMIA PO PRN (00:15)
[2020-02-12] MEDS ORDERED: GLUCAGON FOR INJ 1 MG VIAL SQ PRN (00:15)
[2020-02-12] MEDS ORDERED: DEXTROSE 50% 50 ML SYRINGE IV PRN (00:15)
[2020-02-12] MEDS ORDERED: GLUCOSE 40% GEL 15 GM TUBE PO PRN (00:15)
[2020-02-12] MEDS: METOPROLOL TARTRATE 1 MG/ML VIAL IV SCH ×2 (01:00→06:18)
[2020-02-12] MEDS: INSULIN ASPART 100 UNITS/ML 3 ML PEN SC SCH ×3 (01:03→13:34)
--- NOTE | 2020-02-12 01:38 | History and Physical Report ---
DATE OF ADMISSION: 02/11/2020 CHIEF COMPLAINT: Altered mental status, shortness of breath. HISTORY OF PRESENT ILLNESS: This is an 89-year-old female with past medical history significant for type 2 diabetes, insulin-dependent, chronic kidney disease stage IV, hypertension, hyperlipidemia, vascular dementia, iron deficiency anemia, history of cardiac pacemaker, who lives at home with 24/7 care was brought in for altered mental status. The patient was recently in the hospital from 12/26/2019 to 12/30/2019, at that time she had anemia with blood transfusion and also at that time she has fever, bacteremia rule out and COVID was negative. She was treated with antibiotics, initially Zosyn and then transferred to [facility]. She was in hospice before, but she was doing good, hospice was revoked but on last admission palliative care was consulted and family was planning to go back on hospice. She was discharged to home with 24/7 care in home and she also followed with nephrology in 02/08/2020 and as per notes ,family decided not for dialysis in case renal function worsens. As per family, she walks with a walker at home. She is afebrile.On Regular diet. She is also oriented to name and sometimes she knows that she is in the house. She can recognize her family. Son is in the room and he helped with the history. Today she seem to have some weakness in left side, able to not ambulate properly and was sleeping whole day, which prompted her to bring to the hospital. As per the ER there was q question of aspiration but the family denies any aspiration at this time. In the COVID-19 PCR was negative. Influenza was negative. She had a mild temperature spike of 37.9, white count of 12.5 and no lymphopenia is seen. Venous blood gases are okay. Potassium was 5.9. CO2 was 18 and creatinine was 4.3, baseline is around 3. Lactate was normal at 1.6. Troponin was 0.07. Procalcitonin 0.84. Urinalysis was negative. As per Son no complains of pain, No cough, No nausea/vomiting or diarrhea. Patient drowsy not answering any questions. Allergies: Latex, Silicone, Keflex, Lovastatin. PMHx as above Past surgical hx Left humerus fracture repair, pace maker insertion, right hip fracture repair. Medications:Amlodipine, calcium tab, Lexapro, hydralazine, Lopressor,Lantus, vitamin d, trazodone. Family Hx No family hx on file Social Hx no smoking, no alcohol. Lives at home with 24/7 care. ROS: Unobtainable as patient is lethargic and no answering questions. P/E Ge : Lethargic. Moves extremities for pain ful stimuli Vitals: HEENT: GAUTAM, No pallor no icterus Neck No neck masses, no jvd, CVs s1 and s2 heard regular rate and rhythm, no murmurs Rs cta b/l no wheezing or crackles Abd: soft bowel sounds present, no distension no guarding [employer] drowsy moves extremities to painful stimuli Ext no edema no erythema. Lab: wbc 12.5, hb 7.8, hematocrit 24.5, sodium 139, potassium 5.9,chloride 113, bicarb 18, bun 93, cr 4.3, glucose 206, lactate 1.6, calcium 8.6, magnesium 2.1, t.bilirubin 0.3, Direct bilirubin 0.1, ast 13, alt 8, alk phosp 101, troponin 0.07, UA negative. Covid negative, influenza negative IMAGING: CT of abdomen and pelvis preliminary report shows moderate pleural effusions and bibasilar consolidation with compressive atelectasis, mild patchy right bibasilar ground-glass infiltrate, incomplete distention of the descending colon, sigmoid colon and rectum. Unable to exclude mild diverticulitis or nonspecific colitis or proctitis. 6 cm right adnexal cystic lesion as before, anasarca. Chest x-ray, infiltrates in bilateral lower lobes, probably right lower lobe pleural effusion. EKG: Poor quality, atrial sensed ventricular paced rhythm at rate of 84. ASSESSMENT AND PLAN: This is an 89-year-old female with a history of vascular dementia, mostly oriented to name only. Lives at home with 24/7 care, family brought in because of altered mental status. 1. Altered mental status with encephalopathy, most likely secondary to infectious process, acute kidney injury. COVID-19 PCR negative. Influenza flu was negative, UA unremarkable. Chest x-ray, possible bibasilar infiltrates, possible aspiration pneumonitis. Family has mentioned, she was somewhat weak on the left side while she was ambulating in the morning today. We will also get CT of the head, could not get MRI because of the pacemaker. We will also get CT of the chest to get better picture of the lungs. ER started empirically on IV Zosyn, IV vancomycin, which we will continue. Follow the cultures. Gentle fluids at 50 mL per hour. Monitor for volume overload. The patient is DNR/DNI as per my discussion with the son. Closely monitor in the tele floor. 2. Hyperkalemia. The patient chronic kidney disease stage IV, potassium of 5.9. Received dextrose, insulin and calcium gluconate in the ER. We will follow repeat labs. Consult nephrology.No dialysis as per the son, as per the living will. She as recently evaluated by nephrology as outpatient in February 07. 3. Acute kidney injury on chronic kidney disease stage IV. Recent baseline creatinine of 2.7, current creatinine of 4.3, BUN is 93. Avoid any nephrotoxic agents. Getting gentle fluids. Family does not want any dialysis. We will consult nephrology in a.m. for further recommendation. Follow the repeat labs. 4. Mild elevation of troponin. Mostly demand ischemia or from NUZHAT, Will follow serial Ce and echo. 5. Diabetes. We will cut back Lantus to 5 units at bedtime, place on insulin sliding scale, follow the blood sugars. 6. Hypertension. Hold his home medication of hydralazine, metoprolol tartrate and amlodipine for now and will place on IV Lopressor p.r.n. and closely monitor the blood pressure. 7. Depression. Continue Lexapro when able to take p.o. 8. Anemia of chronic kidney disease, iron deficiency anemia, on iron supplements. . Hemoglobin 7.8 today. Got blood consent from the son. Mostly from anemia of chronic kidney disease, and chronic ongoing illness,we will give 1 unit of PRBC. We will check stool for Hemoccult and follow the repeat labs. 9. Dementia. Monitor for any delirium. Normal serum B12 and serum folate levels in last admission. Currently on 02/11 care at home. 10. Adnexal cyst. 5.9_ cm complex cystic lesion in right adnexal, also found on last admission. Follow up as outpatient if family wishes. 11. Deep venous thrombosis prophylaxis. We will place on sequential compression devices for now. DISPOSITION: Closely monitor in the med tele. CODE STATUS: DNR/DNI as per my discussion with the son .Prognosis is guarded to poor, to be decide about hospice care. MTDD
[2020-02-12 06:18] LABS: Basophils # (auto) 0.01 K/uL (0-0.2); Basophils % (auto) 0.1 %; Hematocrit (blood only) 28.3 % (37-47); Hemoglobin 8.8 g/dL (12.0-16.0); Immature Granulocytes # (auto) 0.03 K/uL (0.00-0.02); Immature Granulocytes % (auto) 0.3 %; Lymphocytes # (auto) 1.62 K/uL (1.2-3.4); Lymphocytes % (auto) 14.2 %; Mean Corpuscular Hemoglobin 30.7 pg (25-34); Mean Corpuscular Hgb Conc 31.1 g/dL (32-36); Mean Corpuscular Volume 98.6 fL (80-100); Mean Platelet Volume 10.7 fL (7.4-10.4); Monocytes # (auto) 0.59 K/uL (0.11-0.59); Monocytes % (auto) 5.2 %; Neutrophils # (auto) 9.13 K/uL (1.4-6.5); Neutrophils % (auto) 80.2 %; Platelet Count 195 K/uL (130-400); RDW Coefficient of Variation 17.1 % (11.5-14.5); RDW Standard Deviation 61.6 fL (36.4-46.3); Red Blood Count 2.87 M/uL (4.2-5.4); White Blood Count 11.38 K/uL (4.8-10.8)
[2020-02-12 06:40] LABS: BUN Creatinine Ratio 23.4 (10-20); Calcium 8.7 mg/dl (8.5-10.1); Creatinine Clr Calc Pharmacy 10.1 ml/min; Est GFR (African American) 11.1; Est GFR (Non-African American) 9.5; Magnesium 2.2 mg/dl (1.8-2.4); Potassium 5.6 mmol/L (3.5-5.1)
[2020-02-12] MEDS ORDERED: INSULIN HUMAN REGULAR PER UNIT 10 UNITS in SYRINGE 9.9 ML IV STA (06:45)
[2020-02-12] MEDS ORDERED: CALCIUM GLUCONATE 10% 1,000 MG in SODIUM CHLORIDE 0.9% 50 ML IV STA (06:45)
[2020-02-12] MEDS ORDERED: DEXTROSE 50% 50 ML SYRINGE IV STA (06:45)
[2020-02-12 07:03] LABS: Estimated Average Glucose 103 mg/dl; Hemoglobin A1C 5.2 % (4.5-5.6)
--- NOTE | 2020-02-12 07:07 | CT Scan Report ---
HEAD CT NONCONTRAST CT DOSE: HISTORY: Mental status. TECHNIQUE: Multiaxial CT images of the head were performed without the use of intravenous contrast. A utomated exposure control was utilized for this study. A dose lowering technique was utilized adheri ng to the principles of ALARA. Comparison: Head CT 12/26/2019. Findings: The paranasal sinuses and mastoid air cells are clear. The calvarium and skull base are int act. There is no mass, hematoma, midline shift, acute infarct. White matter hypodensity is nonspecifi c but suggestive of microvascular ischemic change. The ventricles and sulci demonstrate mild age-rela gennaro involutional changes. Impression: No significant change compared to the prior study. No acute intracranial abnormality. ACT 112: Negative or not required by law. Electronically signed by: Joe Alvarado M.D. 02/12/2020 7:06 AM
--- NOTE | 2020-02-12 07:22 | XRay Report ---
LEFT FOREARM 2 VIEWS HISTORY: Left forearm swelling ecchymosis COMPARISON: None. FINDINGS: There is no fracture or dislocation. The bones are osteopenic. Soft tissue swelling within the proximal forearm. Vascular calcifications are noted. Chondrocalcinosis and degenerative changes w ithin the wrist. No radiopaque foreign bodies. IMPRESSION: Soft tissue swelling within the proximal forearm. No fractures. ACT 112: Negative or not required by law. Electronically signed by: Joe Alvarado M.D. 02/12/2020 7:21 AM
[2020-02-12] MEDS ORDERED: INSULIN ASPART 100 UNITS/ML 3 ML PEN SC SCH (07:30)
--- NOTE | 2020-02-12 07:31 | XRay Report ---
XR chest 1V portable HISTORY: SEPSIS COMPARISON: Chest 12/26/2019. FINDINGS: No pneumothorax. Small to moderate left and small right pleural effusions. There is mild di ffuse interstitial vascular thickening consistent with mild pulmonary edema. Old nonunited left humer al neck fracture. Left-sided dual-chamber pacemaker. The heart is normal in size. IMPRESSION: Mild interstitial pulmonary edema and bilateral pleural effusions. This has progressed in the interva l. ACT 112: Negative or not required by law. Electronically signed by: Joe Alvarado M.D. 02/12/2020 7:29 AM
--- NOTE | 2020-02-12 07:40 | CT Scan Report ---
ABDOMEN AND PELVIS CT WITHOUT CONTRAST CT DOSE: 785.70 mGy.cm HISTORY: Confusion. sepsis, diarrhea TECHNIQUE: Multiaxial CT images of the abdomen and pelvis were performed without contrast. A dose lo wering technique was utilized adhering to the principles of ALARA. COMPARISON STUDY: Abdomen and pelvis CT 12/26/2019. FINDINGS: Slight increase in size in the small to moderate bilateral pleural effusions. Interstitial thickening again noted at the lung bases suggestive of mild pulmonary edema. The heart remains mildly enlarged. Patchy density at the lung bases favor compressive atelectasis from the pleural effusions. Mild motion artifact. No pneumoperitoneum. No pneumatosis. Internal fixation of an old, healed right proximal femoral fracture. There is a subacute mild superior endplate compression fracture at L5. Th is demonstrates less than 10% loss of height. Moderate body wall edema which has progressed. The unen hanced spleen and adrenal glands unremarkable. Bilateral nephrolithiasis. No hydronephrosis. Stable b ilateral renal hypodense lesions. No retroperitoneal lymphadenopathy. There is a diverticulum at the third portion of the duodenum. The pancreas remains atrophic. Stable mild to moderate intra and extra hepatic bile duct dilatation. The gallbladder is likely surgically absent. The bladder is not well-d istended but appears unremarkable. Redemonstration of the 6 cm right adnexal cystic lesion. This is u nchanged. Moderate bowel wall thickening involving the rectum with mild perirectal fat stranding/milly a. Questionable thickening of the sigmoid colon, descending colon, and distal transverse colon may be due to underdistention. No dilated loops of bowel to suggest an obstruction. IMPRESSION: 1. Moderate rectal wall thickening consistent with a nonspecific proctitis. Additional areas of quest ionable bowel wall thickening involving the colon favors under distention. Associated colitis cannot be excluded. 2. No evidence for bowel obstruction. 3. Interval progression of the interstitial pulmonary edema and bilateral pleural effusions. 4. Progression of the moderate body wall edema. 5. A subacute mild superior endplate compression fracture at L5 which demonstrates less than 10% loss of height. 6. No change in the 6 cm complex lesion within the right adnexa. This would be considered pathologic in a postmenopausal female. ACT 112: Negative or not required by law. Electronically signed by: Joe Alvarado M.D. 02/12/2020 7:39 AM
[2020-02-12] MEDS ORDERED: ALBUTEROL 0.5% NEB SOLN 2.5 MG/0.5 ML VIAL NEB PRN (07:42)
[2020-02-12] MEDS ORDERED: ALBUTEROL 0.5% NEB SOLN 2.5 MG/0.5 ML VIAL NEB STA (07:42)
[2020-02-12] MEDS ORDERED: ACETAMINOPHEN 325 MG TAB PO PRN (07:49)
[2020-02-12] MEDS ORDERED: FUROSEMIDE 40 MG in SYRINGE 0 ML IV ONE (07:50)
[2020-02-12] MEDS ORDERED: METOPROLOL TARTRATE 1 MG/ML VIAL IV PRN (07:52)
--- NOTE | 2020-02-12 07:52 | Electrocardiogram Report ---
Test Reason : Blood Pressure : / mmHG Vent. Rate : 084 BPM Atrial Rate : 084 BPM P-R Int : 190 ms QRS Dur : 158 ms QT Int : 418 ms P-R-T Axes : 059 095 001 degrees QTc Int : 493 ms Poor data quality, interpretation may be adversely affected Atrial-sensed ventricular-paced rhythm Abnormal ECG When compared with ECG of 26-DEC-2019 09:43, Vent. rate has increased BY 10 BPM Confirmed by Ronny Ivory ([id number]) on 02/12/2020 7:51:59 AM Referred By: REFERRED SELF Confirmed By:Ronny Ivory
--- NOTE | 2020-02-12 07:52 | CT Scan Report ---
CT chest wo con CT DOSE: 929.26 mGy.cm HISTORY: Altered mental status. aspiration? TECHNIQUE: Multiaxial CT images of the chest were performed without contrast. A dose lowering techni que was utilized adhering to the principles of ALARA. COMPARISON: Chest CT 12/26/2019. FINDINGS: No pneumothorax. Small right and small to moderate left pleural effusions. There is mild in terlobular septal thickening consistent with mild interstitial pulmonary edema. There is mild right p erihilar groundglass density is also likely representing a component of the pulmonary edema. Consolid ations within the lungs posteriorly, left greater than right. There is nonspecific but favors atelect asis from the pleural effusions. There is also a bandlike area of consolidation within the left upper lobe posteriorly. Partial opacification of the left lower lobe bronchi. No fractures within the visu alized osseous structures. Left-sided dual-chamber pacemaker. The heart is mildly enlarged. No perica rdial effusion. Normal caliber thoracic aorta. Moderate body wall edema. Stable 1.7 cm heterogeneous left posterior thyroid nodule. Prominent mediastinal lymph nodes also remain stable. Normal caliber e sophagus. There is also stable 1.3 cm heterogeneous left thyroid nodule abutting the lower pole. IMPRESSION: 1. Mild interstitial pulmonary edema and bilateral pleural effusions. This has progressed. 2. Partial opacification of the left lower lobe bronchi with left greater than right consolidations w ithin the lower lobes and left upper lobe. This could represent atelectasis or a pneumonia secondary to aspiration. 3. Left thyroid nodules remain unchanged. 4. Moderate body wall edema which has progressed. 5. Additional findings as described above. ACT 112: Negative or not required by law. Electronically signed by: Joe Alvarado M.D. 02/12/2020 7:50 AM
[2020-02-12] MEDS ORDERED: PIPERACILLIN/TAZOBACTAM 3.375 GM in DEXTROSE 5% 100 ML IV SCH (08:00)
--- NOTE | 2020-02-12 08:10 | Hospitalist Progress Note ---
Date of Service February 12, 2020 Assessment & Plan (1) Acute metabolic encephalopathy: due to Uremia from Acute Renal Failure, Underlying Dementia -The patient 89-year-old woman with a past medical history of dementia/vascular, type 2 diabetes on insulin, CKD stage IV, hypertension, hyperlipidemia, iron deficiency anemia, history of cardiac pacemaker with recent admission from 12/25- 12/29 for symptomatic anemia requiring transfusion who presents emerged department on 02/11/2020 from home after was found by family today with altered mental status from baseline. -On arrival the patient is confused, uncomfortable, febrile to 37.9. She appeared clinically dry. She was given IV fluids and also empirically given Vancomycin in the ED with Zosyn in case of any underlying infection -02/12/2020 daytime hospitalist assessment: (Patient seen and examine at the bedside. Breathing on room air with expiratory wheezes. She is alert and knows that she is in the hospital. She does not express acute pain and is not a good historian. She needed assistance by assistant chief nursing officer and medical doctor to help her sit up for posterior lung auscultation. Her CT scan on presentation of bilateral pleural effusions. Discussed with her son Ac Byrd [phone] by telephone that the main issues is the ACUTE RENAL FAILURE and UREMIA that is the main issue. Since patient has declared in the past in her living will of no dialysis, that patient's ultimate health complications can be due to the kidney dysfunction i.e. renal failure causing hyperkalemia and subsequent cardiac risks from hyperkalemia, uremia causing further confusion, fluid overload if poor urine output due to poorly functioning kidneys. Ac Carson affirms that patient's code status is DNR/DNI. Hospitalist discussed that IV fluids and IV antibiotics can be continued and trending the labs but patient's prognosis most likely to be poor. Ac allows for palliative care consult and reports he wishes to discuss with other family members whether comfort care may be appropriate. Hospitalist will hold off IV fluids and give albuterol nebulizer with Lasix 40 mg x1, continue Zosyn antibiotics, no further vancomycin (was given in the ED) due to acute renal failure in a patient who is not a dialysis candidate. Allow for dysphagia screening and if passes, patient can take oral diet and home dose oral metoprolol and oral hydralazine formal speech and swallow, PT/OT evaluations, case management consult also ordered at this time) (2) Acute renal failure (ARF): -This is a progression of CKD in a patient who did not wish for dialysis -In December 2019, she was admitted to hospital and with [facility] not being able to offer much other interventions for her. Patient was then discharged in anticipation of hospice but this appears to not have been done -any further recommendations by nephrology service appreciated at this time -palliative care consult (3) Uremia: -admission BUN of 93 on 02/11/2020 -will likely remain elevated due to kidney function (4) Hyperkalemia: -admission serum potassium of 5.9 on 02/11/2020 presentation -after initial temporizing measures, serum potassium 5.6 on 02/12/2020 labs -no acute EKG changes so far. 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 CODE STATUS: DNR/DNI son Ac Byrd [phone] Admission and Anticipated Discharge Date Admission Date: February 11, 2020 Subjective Patient seen and examine at the bedside. Breathing on room air with expiratory wheezes. She is alert and knows that she is in the hospital. She does not express acute pain and is not a good historian. She needed assistance by assistant chief nursing officer and medical doctor to help her sit up for posterior lung auscultation. Her CT scan on presentation of bilateral pleural effusions. Discussed with her son Ac Byrd [phone] by telephone that the main issues is the ACUTE RENAL FAILURE and UREMIA that is the main issue. Since patient has declared in the past in her living will of no dialysis, that patient's ultimate health complications can be due to the kidney dysfunction i.e. renal failure causing hyperkalemia and subsequent cardiac risks from hyperkalemia, uremia causing further confusion, fluid overload if poor urine output due to poorly functioning kidneys. Ac Teestephani affirms that patient's code status is DNR/DNI. Hospitalist discussed that IV fluids and IV antibiotics can be continued and trending the labs but patient's prognosis most likely to be poor. Ac allows for palliative care consult and reports he wishes to discuss with other family members whether comfort care may be appropriate. Hospitalist will hold off IV fluids and give albuterol nebulizer with Lasix 40 mg x1, continue Zosyn antibiotics, no further vancomycin (was given in the ED) due to acute renal failure in a patient who is not a dialysis candidate. Allow for dysphagia screening and if passes, patient can take oral diet and home dose oral metoprolol and oral hydralazine formal speech and swallow, PT/OT evaluations, case management consult also ordered at this time Review of Systems Review of Systems: All systems reviewed & are unremarkable except as noted in Subjective Physical Exam Constitutional: cooperative Eyes: PERRL, conjunctivae normal, anicteric sclerae EOM intact bilaterally ENMT: external ear and nose normal, oropharynx normal Neck: normal visual inspection Respiratory: normal respiratory effort Auscultation: + wheezes Cardiovascular: Rate/Rhythm: regular rate Gastrointestinal (Abdomen): Percussion/Palpation: abdomen soft Musculoskeletal: Head/Neck/Chest: normocephalic and head atraumatic weakness on physical exam Neurologic: PERRL, EOMI, accommodation nl, no face palsy, no dysarthria Psychiatric: Orientation: alert and cooperative Results & Data Results & Data ([facility]) Vital Signs (Past 12 Hours) Vital Signs Temp Pulse Pulse Resp BP BP Pulse Ox 02/12/20 07:58 78 16 92 02/12/20 07:33 36.6 C 75 19 163/73 H 92 02/12/20 06:18 69 02/12/20 03:37 36.6 C 73 18 145/63 H 94 02/12/20 03:30 36.7 C 75 22 176/71 H 93 02/12/20 02:37 36.5 C 70 18 140/62 92 02/12/20 02:07 36.6 C 67 18 153/103 H 94 02/12/20 01:52 36.8 C 69 20 145/86 H 96 02/12/20 01:29 36.5 C 61 18 115/43 L 96 02/12/20 01:00 62 02/11/20 23:30 36.6 C 86 22 152/86 H 92 02/11/20 23:08 36.4 C L 02/11/20 23:00 64 18 110/45 L 94 02/11/20 22:45 64 18 104/50 L 95 02/11/20 22:21 96 02/11/20 22:15 70 18 112/61 96 02/11/20 22:11 68 18 111/57 L 95 02/11/20 21:45 68 18 111/51 L 95 02/11/20 21:30 72 18 121/54 L 95 02/11/20 21:15 77 15 95 02/11/20 21:00 78 14 152/69 H 94 02/11/20 20:45 76 18 93 02/11/20 20:40 79 14 02/11/20 20:15 76 14 93
[2020-02-12] MEDS: METOPROLOL TARTRATE 50 MG TAB PO SCH (08:18)
[2020-02-12] MEDS: ESCITALOPRAM OXALATE 10 MG TAB PO SCH (08:19)
[2020-02-12] MEDS: FERROUS SULFATE 325 MG TAB PO SCH (08:19)
[2020-02-12] MEDS: LIDOCAINE HCL 5% OINT 30 GM TUBE TOP SCH (08:20)
[2020-02-12] MEDS: NYSTATIN CR 15 GM TUBE EXT SCH ×2 (08:20→21:00)
[2020-02-12] MEDS ORDERED: NORMOSOL-R 1,000 ML IV SCH (10:15)
--- NOTE | 2020-02-12 11:18 | Electrocardiogram Report ---
Test Reason : Blood Pressure : / mmHG Vent. Rate : 069 BPM Atrial Rate : 069 BPM P-R Int : 012 ms QRS Dur : 154 ms QT Int : 432 ms P-R-T Axes : 000 109 -35 degrees QTc Int : 462 ms AV dual-paced rhythm Abnormal ECG When compared with ECG of 11-FEB-2020 19:12, Vent. rate has decreased BY 15 BPM Confirmed by Frank Cannon ([id number]) on 02/12/2020 11:18:00 AM Referred By: REFERRED SELF Confirmed By:Edwin Cannon
--- NOTE | 2020-02-12 11:26 | Nephrology Consultation ---
Date of Consultation February 12, 2020 Assessment & Plan (1) Acute worsening of stage 4 chronic kidney disease: Goals of care provide for conservative medical management without dialysis. Overall, prognosis is guarded. Palliative consultation appropriate. (2) Acute kidney injury: Nikolas appears intravascularly volume depleted. CT scan demonstrating 3rd spacing of fluid which can been attributed to underlying advanced kidney dysfunction. She has tolerated IVF so far. Mild persistent NAGMA. Potassium improving. I would continue to encourage a slightly positive fluid balance. Following IV furosemide this morning, I have requested IVF to restart with normosol @ 150 ml/hr x 1 L. Nikolas will be monitored closely. Repeat metabolic profile ordered for this afternoon. HCO3 replacement ordered. I/O's monitored. (3) CKD (chronic kidney disease), stage IV: Baseline creatinine 3.5 mg/dL. Followed by Dr. Worley. Medications are appropriately dosed for kidney function. (4) Hyperkalemia: No acute changes on monitor. Improvement noted with treatment. UOP improving. Continue IVF to encourage UOP. Low potassium diet. NaHCO3 replacement with 650 BID ordered. Will recheck this afternoon. (5) Anemia in chronic kidney disease: Iron profile ordered to be checked with next set of labs. Epogen 86151 units x 1 dose now. No signs of active bleeding. (6) Hypertension: BP acceptable. Tolerating current therapy with hydralazine and metoprolol well. History of Present Illness Reason for Consultation: NUZHAT/CKD, hyperkalemia Requesting Physician: Evert Stanton MD Attending Physician: Evert Stanton MD History of Present Illness Nikolas Patel is an 89-year-old female with advanced chronic kidney disease. Nikolas has CKD IV-V A3 with a baseline creatinine of ~3.5 mg/dL. 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 She follows with Dr. Worley in the nephrology clinic. She has declined dialysis in favor of more conservative management. Nikolas was enrolled in hospice in the past but as her condition stabilized services were no longer felt to be necessary. 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 Nikolas lives at home with 24 hour care. She was recently admitted to [facility] last month with acute on chronic anemia and fevers. She was treated with a course of Rocephin and PRBC transfusion support. FOBT was negative. Nikolas had follow up with Dr. Worley following the admission and was doing reasonably well at that time with a creatinine stable at 3.5 mg/dL. She has not required diuretics for management of her volume status. BP has been well controlled with a combination of amlodipine, hydralazine, and metoprolol. Her metabolic profile has been otherwise acceptable. She is not maintained on RONAL therapy as an o utpatient. Nikolas presented to the ER at [facility] yesterday with weakness and confusion. She was able to provide a limited history this morning. Mental status is improving toward baseline with supportive care. Evaluation notable for a Tmax of 37.9. Nikolas had acute on chronic renal insufficiency and progressive azotemia as well as hyperkalemia on admission. She is tolerating IVF well and remains non-dickson guric. CT demonstrated the kidneys to be unobstructed. Potassium is improving. EKG demonstrated an atrial paced rhythm without significant changes. Hemoglobin is low but stable. Nikolas is breathing comfortably. A dose of furosemide IV was provided this morning prior to my assessment. Nkiolas is not oriented to place or time. She answered questions pertaining to how she felt reasonably but interjected statements that did not make sense to the conversation. She is not able to provide medical history. Allergies Allergy/AdvReac Type Severity Reaction Status Date / Time latex Allergy Mild Rash Verified 01/04/20 14:55 lovastatin AdvReac Mild "doesn't Verified 01/04/20 14:55 feel well" silicone AdvReac Mild Hives Verified 01/04/20 14:55 cephalexin [From Keflex] AdvReac HIVES Verified 01/04/20 14:55 Home Medications Home Medications Medication Instructions Recorded Confirmed Type insulin glargine 100 unit/mL 10 units SUBCUT QAM ml 12/30/18 02/11/20 History subcutaneous solution escitalopram oxalate 5 mg tablet 5 mg PO QAM 09/15/19 02/11/20 History cranberry extract-vitamin C [Azo 1 cap PO BID 12/26/19 02/11/20 History Cranberry Plus Vit C] metoprolol tartrate 25 mg PO PM 12/26/19 02/11/20 History metoprolol tartrate 50 mg PO QAM 12/26/19 02/11/20 History trazodone 50 mg PO HS 12/26/19 02/11/20 History ferrous sulfate 325 mg (65 mg 325 mg PO DAILY #90 tab 01/04/20 02/11/20 Rx iron) tablet amlodipine [Norvasc] 10 mg PO DAILY 02/11/20 02/11/20 History calcium carbonate-vitamin D2 1 tab PO DAILY 02/11/20 02/11/20 History [Calcium 500 with Vitamin D2] docusate sodium 200 mg PO QPM 02/11/20 02/11/20 History hydralazine 25 mg PO TID 02/11/20 02/11/20 History lidocaine 1 applic TOPICAL DAILY 02/11/20 02/11/20 History nystatin 1 applic TOPICAL BID 02/11/20 02/11/20 History Patient History Medical History Acute worsening of stage 4 chronic kidney disease Adnexal cyst AMS (altered mental status) Anemia Chronic kidney disease, stage 4 (severe) CKD (chronic kidney disease), stage IV Dementia Diabetes Fever HTN (hypertension) Hypertension Pacemaker Vitamin D deficiency Vomiting Surgical History History of repair of right hip joint History of right hip fracture History of total left knee replacement (TKR) Hx of cardiac pacemaker Family History Other Family history unobtainable Social History Smoking Status: Unknown if ever smoked Second Hand Exposure: No; Hx Alcohol Use: No Hx Substance Use: No Preferred Language: Arabic Communication Ability: Effective Pain Management Physician Required: No Beliefs That Will Affect Care: None marital status: / Current Living Situation: Alone Current Living Situation Comment: has caregivers current occupational status: retired Other Information That Helps Us Care for You: No Feels Safe at Home: Yes Safety Concerns: Feels Safe At This Time Assistive Devices: Glasses Review of Systems Review of Systems: All systems reviewed & are unremarkable except as noted in HPI & below Physical Exam Constitutional: well developed, + thin and + frail appearing; no acute distress Eyes: + anicteric sclerae; no corneal abnormality ENMT: Mouth: + dry oral mucous membranes; no oral mucosal abnormality Neck: normal visual inspection and trachea midline Respiratory: normal respiratory effort Auscultation: lungs clear to auscultation bilaterally Cardiovascular: Rate/Rhythm: regular rate Heart Sounds: normal S1 and normal S2 Vessels: no JVD Extremities: no edema Gastrointestinal (Abdomen): Inspection/Auscultation: + abdomen distended Percussion/Palpation: abdomen soft; abdomen nontender Musculoskeletal: Extremities: no cyanosis and no clubbing Skin: + turgor decreased; no lesions Neurologic: Motor/Sensory: no tremor and no asterixis Psychiatric: Orientation: alert; + not oriented x 3 Results & Data ([facility]) Vital Signs (Past 12 Hours) Vital Signs Temp Pulse Pulse Resp BP BP Pulse Ox 02/12/20 11:00 36.6 C 71 19 140/74 90 02/12/20 07:58 78 16 92 02/12/20 07:33 36.6 C 75 19 163/73 H 92 02/12/20 06:18 69 02/12/20 03:37 36.6 C 73 18 145/63 H 94 02/12/20 03:30 36.7 C 75 22 176/71 H 93 02/12/20 02:37 36.5 C 70 18 140/62 92 02/12/20 02:07 36.6 C 67 18 153/103 H 94 02/12/20 01:52 36.8 C 69 20 145/86 H 96 02/12/20 01:29 36.5 C 61 18 115/43 L 96 02/12/20 01:00 62 02/11/20 23:30 36.6 C 86 22 152/86 H 92 Laboratory Results Laboratory Results - last 24 hr 02/11/20 02/11/20 02/11/20 19:25 19:25 19:25 WBC RBC Hgb POC Hgb Hct POC Hct MCV MCH MCHC RDW Std Deviation RDW Coeff of Kylah Plt Count MPV Immature Gran % (Auto) Neut % (Auto) Lymph % (Auto) [place] % (Auto) Eos % (Auto) Baso % (Auto) Neut # (Auto) Lymph # (Auto) [place] # (Auto) Eos # (Auto) Baso # (Auto) Immature Gran # (Auto) Macrocytosis PT INR APTT PTT Ratio VBG pH VBG pCO2 VBG pO2 VBG HCO3 VBG O2 Saturation VBG Base Excess Barometric Pressure POC Sodium Sodium POC Potassium Potassium POC Chloride Chloride Carbon Dioxide POC Total CO2 Anion Gap POC Anion Gap POC BUN BUN Creatinine POC Creatinine Est Cr Clr Drug Dosing Est GFR ( Amer) Est GFR (Non-Af Amer) BUN/Creatinine Ratio Glucose POC Glucose POC Glucose (other) Estimat Average Glucose Hemoglobin A1c Lactate Calcium POC Ioniz Calcium Leeanne Phosphorus Magnesium Total Bilirubin Direct Bilirubin AST ALT Alkaline Phosphatase Troponin I Total Protein Albumin Globulin Albumin/Globulin Ratio Procalcitonin Urine Color Yellow Urine Appearance Clear Urine pH 5.0 Ur Specific [place] 1.015 Urine Protein 2+ H Urine Glucose (UA) Negative Urine Ketones Negative Urine Blood Negative Urine Nitrite Negative Urine Bilirubin Negative Urine Urobilinogen Negative Ur Leukocyte Esterase Negative Urine WBC (Auto) 1-5 Urine RBC (Auto) 0-4 U Hyaline Cast (Auto) 1-5 U Epithel Cells (Auto) 10-20 H Urine Bacteria (Auto) Negative Urine Yeast Not Reportable Stl C. diff Tox B Gene Negative Cdiff Gene COVID-19 Eval Order Covid19 Done at [facility] COVID-19 PCR Influ A Molecular Assay Influ B Molecular Assay Blood Type Antibody Screen Crossmatch 02/11/20 02/11/20 02/11/20 19:25 19:25 19:36 WBC 12.57 H RBC 2.44 L Hgb 7.8 L POC Hgb Hct 24.5 L POC Hct MCV 100.4 H MCH 32.0 MCHC 31.8 L RDW Std Deviation 56.3 H RDW Coeff of Kylah 15.3 H Plt Count 208 MPV 10.4 Immature Gran % (Auto) 0.3 Neut % (Auto) 78.7 Lymph % (Auto) 14.7 [place] % (Auto) 6.3 Eos % (Auto) 0.0 Baso % (Auto) 0.0 Neut # (Auto) 9.89 H Lymph # (Auto) 1.85 [place] # (Auto) 0.79 H Eos # (Auto) 0.00 Baso # (Auto) 0.00 Immature Gran # (Auto) 0.04 H Macrocytosis Present PT INR APTT PTT Ratio VBG pH VBG pCO2 VBG pO2 VBG HCO3 VBG O2 Saturation VBG Base Excess Barometric Pressure POC Sodium Sodium POC Potassium Potassium POC Chloride Chloride Carbon Dioxide POC Total CO2 Anion Gap POC Anion Gap POC BUN BUN Creatinine POC Creatinine Est Cr Clr Drug Dosing Est GFR ( Amer) Est GFR (Non-Af Amer) BUN/Creatinine Ratio Glucose POC Glucose POC Glucose (other) Estimat Average Glucose Hemoglobin A1c Lactate Calcium POC Ioniz Calcium Leeanne Phosphorus Magnesium Total Bilirubin Direct Bilirubin AST ALT Alkaline Phosphatase Troponin I Total Protein Albumin Globulin Albumin/Globulin Ratio Procalcitonin Urine Color Urine Appearance Urine pH Ur Specific [place] Urine Protein Urine Glucose (UA) Urine Ketones Urine Blood Urine Nitrite Urine Bilirubin Urine Urobilinogen Ur Leukocyte Esterase Urine WBC (Auto) Urine RBC (Auto) U Hyaline Cast (Auto) U Epithel Cells (Auto) Urine Bacteria (Auto) Urine Yeast Stl C. diff Tox B Gene COVID-19 Eval Order COVID-19 PCR NEGATIVE Influ A Molecular Assay Negative Influ B Molecular Assay Negative Blood Type Antibody Screen Crossmatch 02/11/20 02/11/20 02/11/20 19:36 19:36 19:36 WBC RBC Hgb POC Hgb Hct POC Hct MCV MCH MCHC RDW Std Deviation RDW Coeff of Kylah Plt Count MPV Immature Gran % (Auto) Neut % (Auto) Lymph % (Auto) [place] % (Auto) Eos % (Auto) Baso % (Auto) Neut # (Auto) Lymph # (Auto) [place] # (Auto) Eos # (Auto) Baso # (Auto) Immature Gran # (Auto) Macrocytosis PT 11.7 INR 1.1 APTT 27.9 PTT Ratio 1.0 VBG pH VBG pCO2 VBG pO2 VBG HCO3 VBG O2 Saturation VBG Base Excess Barometric Pressure POC Sodium Sodium 139 POC Potassium Potassium 5.9 H POC Chloride Chloride 113 H Carbon Dioxide 18 L POC Total CO2 Anion Gap 8.0 POC Anion Gap POC BUN BUN 93 H Creatinine 4.32 H POC Creatinine Est Cr Clr Drug Dosing 8.3 Est GFR ( Amer) 9.9 Est GFR (Non-Af Amer) 8.5 BUN/Creatinine Ratio 21.6 H Glucose 206 H POC Glucose POC Glucose (other) Estimat Average Glucose Hemoglobin A1c Lactate 1.6 Calcium 8.6 POC Ioniz Calcium Leeanne Phosphorus 3.4 Magnesium 2.1 Total Bilirubin 0.3 Direct Bilirubin 0.1 AST 13 L ALT 8 L Alkaline Phosphatase 101 Troponin I 0.071 H* Total Protein 7.2 Albumin 2.7 L Globulin 4.5 H Albumin/Globulin Ratio 0.6 L Procalcitonin Urine Color Urine Appearance Urine pH Ur Specific [place] Urine Protein Urine Glucose (UA) Urine Ketones Urine Blood Urine Nitrite Urine Bilirubin Urine Urobilinogen Ur Leukocyte Esterase Urine WBC (Auto) Urine RBC (Auto) U Hyaline Cast (Auto) U Epithel Cells (Auto) Urine Bacteria (Auto) Urine Yeast Stl C. diff Tox B Gene COVID-19 Eval Order COVID-19 PCR Influ A Molecular Assay Influ B Molecular Assay Blood Type Antibody Screen Crossmatch 02/11/20 02/11/20 02/11/20 19:36 19:50 20:04 WBC RBC Hgb POC Hgb 7.8 L Hct POC Hct 23 L MCV MCH MCHC RDW Std Deviation RDW Coeff of Kylah Plt Count MPV Immature Gran % (Auto) Neut % (Auto) Lymph % (Auto) [place] % (Auto) Eos % (Auto) Baso % (Auto) Neut # (Auto) Lymph # (Auto) [place] # (Auto) Eos # (Auto) Baso # (Auto) Immature Gran # (Auto) Macrocytosis PT INR APTT PTT Ratio VBG pH 7.34 L VBG pCO2 32 L VBG pO2 39 VBG HCO3 17 VBG O2 Saturation 71.0 VBG Base Excess -7.7 Barometric Pressure 732.3 POC Sodium 141 Sodium POC Potassium 6.0 H Potassium POC Chloride 113 H Chloride Carbon Dioxide POC Total CO2 17 L Anion Gap POC Anion Gap 17.0 POC BUN 105 H* BUN Creatinine POC Creatinine 4.4 H Est Cr Clr Drug Dosing Est GFR ( Amer) Est GFR (Non-Af Amer) BUN/Creatinine Ratio Glucose POC Glucose POC Glucose (other) 216 H Estimat Average Glucose Hemoglobin A1c Lactate Calcium POC Ioniz Calcium Leeanne 1.27 Phosphorus Magnesium Total Bilirubin Direct Bilirubin AST ALT Alkaline Phosphatase Troponin I Total Protein Albumin Globulin Albumin/Globulin Ratio Procalcitonin 0.84 H Urine Color Urine Appearance Urine pH Ur Specific [place] Urine Protein Urine Glucose (UA) Urine Ketones Urine Blood Urine Nitrite Urine Bilirubin Urine Urobilinogen Ur Leukocyte Esterase Urine WBC (Auto) Urine RBC (Auto) U Hyaline Cast (Auto) U Epithel Cells (Auto) Urine Bacteria (Auto) Urine Yeast Stl C. diff Tox B Gene COVID-19 Eval Order COVID-19 PCR Influ A Molecular Assay Influ B Molecular Assay Blood Type Antibody Screen Crossmatch 02/11/20 02/12/20 02/12/20 23:57 00:03 05:22 WBC RBC Hgb POC Hgb Hct POC Hct MCV MCH MCHC RDW Std Deviation RDW Coeff of Kylah Plt Count MPV Immature Gran % (Auto) Neut % (Auto) Lymph % (Auto) [place] % (Auto) Eos % (Auto) Baso % (Auto) Neut # (Auto) Lymph # (Auto) [place] # (Auto) Eos # (Auto) Baso # (Auto) Immature Gran # (Auto) Macrocytosis PT INR APTT PTT Ratio VBG pH VBG pCO2 VBG pO2 VBG HCO3 VBG O2 Saturation VBG Base Excess Barometric Pressure POC Sodium Sodium POC Potassium Potassium POC Chloride Chloride Carbon Dioxide POC Total CO2 Anion Gap POC Anion Gap POC BUN BUN Creatinine POC Creatinine Est Cr Clr Drug Dosing Est GFR ( Amer) Est GFR (Non-Af Amer) BUN/Creatinine Ratio Glucose POC Glucose 84 POC Glucose (other) Estimat Average Glucose Hemoglobin A1c Lactate Calcium POC Ioniz Calcium Leeanne Phosphorus Magnesium Total Bilirubin Direct Bilirubin AST ALT Alkaline Phosphatase Troponin I 0.065 H* Total Protein Albumin Globulin Albumin/Globulin Ratio Procalcitonin Urine Color Urine Appearance Urine pH Ur Specific [place] Urine Protein Urine Glucose (UA) Urine Ketones Urine Blood Urine Nitrite Urine Bilirubin Urine Urobilinogen Ur Leukocyte Esterase Urine WBC (Auto) Urine RBC (Auto) U Hyaline Cast (Auto) U Epithel Cells (Auto) Urine Bacteria (Auto) Urine Yeast Stl C. diff Tox B Gene COVID-19 Eval Order COVID-19 PCR Influ A Molecular Assay Influ B Molecular Assay Blood Type O Positive Antibody Screen NEGATIVE Crossmatch See Detail 02/12/20 02/12/20 02/12/20 05:22 05:22 05:22 WBC 11.38 H RBC 2.87 L Hgb 8.8 L POC Hgb Hct 28.3 L POC Hct MCV 98.6 MCH 30.7 MCHC 31.1 L RDW Std Deviation 61.6 H RDW Coeff of Kylah 17.1 H Plt Count 195 MPV 10.7 H Immature Gran % (Auto) 0.3 Neut % (Auto) 80.2 Lymph % (Auto) 14.2 [place] % (Auto) 5.2 Eos % (Auto) 0.0 Baso % (Auto) 0.1 Neut # (Auto) 9.13 H Lymph # (Auto) 1.62 [place] # (Auto) 0.59 Eos # (Auto) 0.00 Baso # (Auto) 0.01 Immature Gran # (Auto) 0.03 H Macrocytosis PT INR APTT PTT Ratio VBG pH VBG pCO2 VBG pO2 VBG HCO3 VBG O2 Saturation VBG Base Excess Barometric Pressure POC Sodium Sodium 143 POC Potassium Potassium 5.6 H POC Chloride Chloride 116 H Carbon Dioxide 18 L POC Total CO2 Anion Gap 9.0 POC Anion Gap POC BUN BUN 92 H Creatinine 3.93 H D POC Creatinine Est Cr Clr Drug Dosing 10.1 Est GFR ( Amer) 11.1 Est GFR (Non-Af Amer) 9.5 BUN/Creatinine Ratio 23.4 H Glucose 102 H POC Glucose POC Glucose (other) Estimat Average Glucose 103 Hemoglobin A1c 5.2 Lactate Calcium 8.7 POC Ioniz Calcium Leeanne Phosphorus Magnesium 2.2 Total Bilirubin Direct Bilirubin AST ALT Alkaline Phosphatase Troponin I Total Protein Albumin Globulin Albumin/Globulin Ratio Procalcitonin Urine Color Urine Appearance Urine pH Ur Specific [place] Urine Protein Urine Glucose (UA) Urine Ketones Urine Blood Urine Nitrite Urine Bilirubin Urine Urobilinogen Ur Leukocyte Esterase Urine WBC (Auto) Urine RBC (Auto) U Hyaline Cast (Auto) U Epithel Cells (Auto) Urine Bacteria (Auto) Urine Yeast Stl C. diff Tox B Gene COVID-19 Eval Order COVID-19 PCR Influ A Molecular Assay Influ B Molecular Assay Blood Type Antibody Screen Crossmatch 02/12/20 02/12/20 06:19 11:02 WBC RBC Hgb POC Hgb Hct POC Hct MCV MCH MCHC RDW Std Deviation RDW Coeff of Kylah Plt Count MPV Immature Gran % (Auto) Neut % (Auto) Lymph % (Auto) [place] % (Auto) Eos % (Auto) Baso % (Auto) Neut # (Auto) Lymph # (Auto) [place] # (Auto) Eos # (Auto) Baso # (Auto) Immature Gran # (Auto) Macrocytosis PT INR APTT PTT Ratio VBG pH VBG pCO2 VBG pO2 VBG HCO3 VBG O2 Saturation VBG Base Excess Barometric Pressure POC Sodium Sodium Pending POC Potassium Potassium Pending POC Chloride Chloride Pending Carbon Dioxide Pending POC Total CO2 Anion Gap Pending POC Anion Gap POC BUN BUN Pending Creatinine Pending POC Creatinine Est Cr Clr Drug Dosing Pending Est GFR ( Amer) Pending Est GFR (Non-Af Amer) Pending BUN/Creatinine Ratio Pending Glucose Pending POC Glucose 113 H POC Glucose (other) Estimat Average Glucose Hemoglobin A1c Lactate Calcium Pending POC Ioniz Calcium Leeanne Phosphorus Magnesium Total Bilirubin Pending Direct Bilirubin AST Pending ALT Pending Alkaline Phosphatase Pending Troponin I Pending Total Protein Pending Albumin Pending Globulin Pending Albumin/Globulin Ratio Pending Procalcitonin Urine Color Urine Appearance Urine pH Ur Specific [place] Urine Protein Urine Glucose (UA) Urine Ketones Urine Blood Urine Nitrite Urine Bilirubin Urine Urobilinogen Ur Leukocyte Esterase Urine WBC (Auto) Urine RBC (Auto) U Hyaline Cast (Auto) U Epithel Cells (Auto) Urine Bacteria (Auto) Urine Yeast Stl C. diff Tox B Gene COVID-19 Eval Order COVID-19 PCR Influ A Molecular Assay Influ B Molecular Assay Blood Type Antibody Screen Crossmatch Diagnostic Findings ABDOMEN AND PELVIS CT WITHOUT CONTRAST CT DOSE: 785.70 mGy.cm HISTORY: Confusion. sepsis, diarrhea TECHNIQUE: Multiaxial CT images of the abdomen and pelvis were performed without contrast. A dose lowering technique was utilized adhering to the principles of ALARA. COMPARISON STUDY: Abdomen and pelvis CT 12/26/2019. FINDINGS: Slight increase in size in the small to moderate bilateral pleural effusions. Interstitial thickening again noted at the lung bases suggestive of mild pulmonary edema. The heart remains mildly enlarged. Patchy density at the lung bases favor compressive atelectasis from the pleural effusions. Mild motion artifact. No pneumoperitoneum. No pneumatosis. Internal fixation of an old, healed right proximal femoral fracture. There is a subacute mild superior endplate compression fracture at L5. This demonstrates less than 10% loss of he ight. Moderate body wall edema which has progressed. The unenhanced spleen and adrenal glands unremarkable. Bilateral nephrolithiasis. No hydronephrosis. Stable bilateral renal hypodense lesions. No retroperitoneal lymphadenopathy. There is a diverticulum at the third portion of the duodenum. The pancreas remains atrophic. Stable mild to moderate intra and extra hepatic bile duct dilatation. The gallbladder is likely surgically absent. The bladder is not well-distended but appears unremarkable. Redemonstration of the 6 cm right adnexal cystic lesion. This is unchanged. Moderate bowel wall thickening involving the rectum with mild perirectal fat stranding/edema. Questionable thickening of the sigmoid colon, descending colon, and distal transverse colon may be due to underdistention. No dilated loops of bowel to suggest an obstruction. IMPRESSION: 1. Moderate rectal wall thickening consistent with a nonspecific proctitis. Additional areas of questionable bowel wall thickening involving the colon favors under distention. Associated colitis cannot be excluded. 2. No evidence for bowel obstruction. 3. Interval progression of the interstitial pulmonary edema and bilateral pleural effusions. 4. Progression of the moderate body wall edema. 5. A subacute mild superior endplate compression fracture at L5 which demonstrates less than 10% loss of height. 6. No change in the 6 cm complex lesion within the right adnexa. This would be considered pathologic in a postmenopausal female. PG Care Time/CCT Total # of Minutes Spent Total Time Spent with Patient: Total time spent is greater than 50% in coordination of care (as documented) at patient's floor/unit and/or counseling patient: Coding Level of Care Code 44286 Inpt Consult Level 4 Diagnoses Acute worsening of stage 4 chronic kidney disease N18.4 Acute kidney injury N17.9 CKD (chronic kidney disease), stage IV N18.4 Hyperkalemia E87.5 Anemia in chronic kidney disease N18.9; D63.1 Hypertension I10
[2020-02-12] MEDS ORDERED: EPOETIN ALFA 20,000 UNITS/ML VIAL SQ ONE (11:45)
[2020-02-12] MEDS: SODIUM BICARBONATE 650 MG TAB PO SCH ×2 (11:45→21:00)
[2020-02-12 11:53] LABS: Albumin Level 2.7 gm/dl (3.4-5.0); BUN Creatinine Ratio 22.8 (10-20); Calcium 8.9 mg/dl (8.5-10.1); Creatinine Clr Calc Pharmacy 9.8 ml/min; Est GFR (African American) 10.6; Est GFR (Non-African American) 9.1; Potassium 5.3 mmol/L (3.5-5.1)
[2020-02-12 11:57] LABS: Albumin Globulin Ratio 0.6 (0.9-2); Bilirubin,Total 0.5 mg/dl (0.2-1); Globulin 4.4 gm/dl (2.5-4.0); Total Protein 7.1 gm/dl (6.4-8.2); Troponin I 0.041 ng/ml (0-0.045)
[2020-02-12] MEDS ORDERED: MoRPHine SULFATE 5 MG/0.25 ML UDP PO PRN (12:04)
--- NOTE | 2020-02-12 12:04 | Communication Note ---
Date of Service: February 12, 2020 Met with patient's son son Ac Byrd [phone] and patient's sister and the goals of care is comfort care going forward with intent of patient to be discharged on hospice if behavioral health case manager can get this set up. will not do further IV antibiotics or IV fluids. will not do further blood draws. speech and swallow therapist will order the diet
[2020-02-12] MEDS ORDERED: FUROSEMIDE 40 MG in SYRINGE 0 ML IV SCH (14:00)
[2020-02-12] MEDS: hydrALAZINE HCL 25 MG TAB PO SCH ×2 (14:00→21:00)
[2020-02-12] MEDS ORDERED: PIPERACILL/TAZOBAC CONSULT ACTIVE PRN (16:24)
--- NOTE | 2020-02-12 16:30 | Communication Note ---
Date of Service: February 12, 2020 Discussed with with patient's son Ac by telephone of recent results. He was [facility] - he reports no further wishes for IV fluids in affirming previous comfort care discussions, allows for the sodium bicarbonate tabs Discussed with Ac also that in the ED the blood cultures of 1 of 2 bottles possible of bacteremia versus contaminant. (gram positive cocci in clusters, PCR is negative for MRSA). Ac allows short term IV antibiotics for now. IV Zosyn is ordered to continue as q12 hours
[2020-02-12] MEDS: PIPERACILLIN/TAZOBACTAM 3.375 GM in DEXTROSE 5% 100 ML IV SCH (19:59)
[2020-02-12] MEDS ORDERED: INSULIN GLARGINE SOLOSTAR 100 UNITS/ML 3 ML PEN SC SCH (21:00)
[2020-02-12] MEDS: METOPROLOL TARTRATE 25 MG TAB PO SCH (21:00)
[2020-02-13] MEDS: PIPERACILLIN/TAZOBACTAM 3.375 GM in DEXTROSE 5% 100 ML IV SCH ×2 (08:17→21:00)
[2020-02-13] MEDS: SODIUM BICARBONATE 650 MG TAB PO SCH ×2 (08:21→21:05)
[2020-02-13] MEDS: FERROUS SULFATE 325 MG TAB PO SCH (08:21)
[2020-02-13] MEDS: ESCITALOPRAM OXALATE 10 MG TAB PO SCH (08:22)
[2020-02-13] MEDS: hydrALAZINE HCL 25 MG TAB PO SCH ×3 (08:22→21:05)
[2020-02-13] MEDS: METOPROLOL TARTRATE 50 MG TAB PO SCH (08:22)
[2020-02-13] MEDS: NYSTATIN CR 15 GM TUBE EXT SCH ×2 (10:47→21:02)
[2020-02-13] MEDS: LIDOCAINE HCL 5% OINT 30 GM TUBE TOP SCH (10:48)
[2020-02-13] MEDS ORDERED: ALBUTEROL 0.5% NEB SOLN 2.5 MG/0.5 ML VIAL NEB STA (10:59)
--- NOTE | 2020-02-13 12:50 | Nephrology Progress Note ---
Date of Service February 13, 2020 Assessment & Plan (1) Acute worsening of stage 4 chronic kidney disease: Plan of care discussed with Dr. Stanton this AM. Family has elected to proceed without IVF's or labs. Dialysis has been refused. Plan is to transition toward AUDITOR with antibiotic therapy for infection. (2) Acute kidney injury: Non-oliguric. Encourage oral fluids and PO intake as tolerated. (3) CKD (chronic kidney disease), stage IV: Followed by Dr. Worley. Nikolas had declined dialysis in the past. Now requesting no additional IVF or blood draws. (4) Hyperkalemia: No acute changes on monitor. Improvement noted with treatment. UOP improving. Continue IVF to encourage UOP. Low potassium diet. NaHCO3 replacement with 650 BID ordered. Will recheck this afternoon. (5) Anemia in chronic kidney disease: Epogen 63029 units x 1 dose ordered yesterday. (6) Hypertension: Admission and Anticipated Discharge Date Admission Date: February 11, 2020 Subjective No acute events overnight. No fevers or chills. Nikolas feels reasonably well this AM. She denies any dyspnea. She is eating and drinking. Appetite fair. No diarrhea reported. Review of Systems Review of Systems: All systems reviewed & are unremarkable except as noted in HPI & below Physical Exam Constitutional: well developed; no acute distress Eyes: no scleral abnormality and no corneal abnormality ENMT: Mouth: no oral mucosal abnormality and oral mucous membranes not dry Neck: normal visual inspection and trachea midline Respiratory: normal respiratory effort Auscultation: lungs clear to auscultation bilaterally Cardiovascular: Rate/Rhythm: regular rate Heart Sounds: normal S1 and normal S2 Extremities: no edema Musculoskeletal: Extremities: no cyanosis and no clubbing Skin: normal turgor; no lesions Neurologic: Motor/Sensory: no tremor and no asterixis Psychiatric: Orientation: alert and oriented x 3 Results & Data ([facility]) Vital Signs (Past 12 Hours) Vital Signs Temp Pulse Resp BP Pulse Ox 02/13/20 11:07 68 18 90 02/13/20 08:19 37 C 69 16 164/70 H 91 Laboratory Results Laboratory Results - last 24 hr 02/11/20 19:36 Bld Cult Staph aureus PCR Negative Blood Culture MRSA PCR Negative PG Care Time/CCT Total # of Minutes Spent Total Time Spent with Patient: Total time spent is greater than 50% in coordination of care (as documented) at patient's floor/unit and/or counseling patient: Coding Level of Care Code 09610 Subseq Hosp Care Lvl 3 Diagnoses Acute worsening of stage 4 chronic kidney disease N18.4 Acute kidney injury N17.9 CKD (chronic kidney disease), stage IV N18.4 Hyperkalemia E87.5 Anemia in chronic kidney disease N18.9; D63.1 Hypertension I10
--- NOTE | 2020-02-13 13:01 | Hospitalist Progress Note ---
Date of Service February 13, 2020 Assessment & Plan (1) Acute metabolic encephalopathy: due to Uremia from Acute Renal Failure, Underlying Dementia Comfort Care Status -The patient 89-year-old woman with a past medical history of dementia/vascular, type 2 diabetes on insulin, CKD stage IV, hypertension, hyperlipidemia, iron deficiency anemia, history of cardiac pacemaker with recent admission from 12/25- 12/29 for symptomatic anemia requiring transfusion who presents emerged de partment on 02/11/2020 from home after was found by family today with altered mental status from baseline. -On arrival the patient is confused, uncomfortable, febrile to 37.9. She appeared clinically dry. She was given IV fluids and also empirically given Vancomycin in the ED with Zosyn in case of any underlying infection -02/12/2020 daytime hospitalist assessment:(Patient seen and examine at the bedside. Breathing on room air with expiratory wheezes. She is alert and knows that she is in the hospital. She does not express acute pain and is not a good historian. She needed assistance by psychiatric nursing aide and medical doctor to help her sit up for posterior lung auscultation. Her CT scan on presentation of bilateral pleural effusions. Discussed with her son Ac Byrd [phone] by telepho ne that the main issues is the ACUTE RENAL FAILURE and UREMIA that is the main issue. Since patient has declared in the past in her living will of no dialysis, that patient's ultimate health complications can be due to the kidney dysfunction i.e. renal failure causing hyperkalemia and subsequent cardiac risks from hyperkalemia, uremia causing further confusion, fluid overload if poor urine output due to poorly functioning kidneys. Ac Byrd affirms that patient's code status is DNR/DNI and then comfort care status (also he was discussed the initial 02/12/2020 [facility] Nephrology recommendations - he reports no further wishes for IV fluids in affirming previous comfort care discussions, allows for the sodium bicarbonate tabs. also discussed with Ac also that in the ED the blood cultures of 1 of 4 bottles possible of bacteremia versus contaminant. (gram positive cocci in clusters, PCR is negative for MRSA). Ac allows short term IV antibiotics for now. IV Zosyn is ordered to continue as q12 hours) -02/13/2020: patient seen and examined today. She is able the eat the food for herself. has expiratory wheezes which are mostly positional when laying flat. patient speaking in full sentences. hospitalist discussed with her about hospice care plans. Patient reports she understands and affirms her agreement but it is not clear to hospitalist how much true insight she has in regards to her health. medical decisions are primarily made by her son Ac. patient's blood cultures o Coag neg staph not lugdunensis in 1 of 4 bottles of blood cultures which is likely contaminant. will continue antibiotics of limited duration for now while in the hospital. residential case manager working on home hospice arrangements (2) Acute renal failure (ARF): -This is a progression of CKD in a patient who did not wish for dialysis -In December 2019, she was admitted to hospital and with [facility] Nephrology not being able to offer much other interventions for her. Patient was then discharged in anticipation of hospice but this appears to not have been done -palliative care consult (3) Uremia: -admission BUN of 93 on 02/11/2020 -will likely remain elevated due to kidney function -no further labs because of comfort care status (4) Hyperkalemia: -admission serum potassium of 5.9 on 02/11/2020 presentation -after initial temporizing measures, serum potassium 5.6 on 02/12/2020 labs -no further labs because of comfort care status (5) Anemia in chronic kidney disease: (6) Hypertension: -patient can take oral diet and home dose oral metoprolol and oral hydralazine (7) Type 2 diabetes mellitus: with chairman ceo current use of insulin -hold off long acting insulin for now because of comfort care status, diet as tolerated Adnexal cyst -known 5.9 cm complex cystic lesion in right adnexal seen from prior imaging Deep venous thrombosis prophylaxis: sequential compression devices CODE STATUS: DNR/DNI son Ac Byrd [phone] Admission and Anticipated Discharge Date Admission Date: February 11, 2020 Subjective -02/13/2020: patient seen and examined today. She is able the eat the food for herself. has expiratory wheezes which are mostly positional when laying flat. patient speaking in full sentences. hospitalist discussed with her about hospice care plans. Patient reports she understands and affirms her agreement but it is not clear to hospitalist how much true insight she has in regards to her health. medical decisions are primarily made by her son Ac. patient's blood cultures o Coag neg staph not lugdunensis in 1 of 4 bottles of blood cultures which is likely contaminant. will continue antibiotics of limited duration for now while in the hospital. residential case manager working on home hospice arrangements patient denies pain. denies choking. denies shortness of breath. denies dizziness. denies all other symptoms Review of Systems Review of Systems: All systems reviewed & are unremarkable except as noted in Subjective Physical Exam Constitutional: cooperative Eyes: PERRL, conjunctivae normal, anicteric sclerae EOM intact bilaterally ENMT: external ear and nose normal, oropharynx normal Neck: normal visual inspection Respiratory: normal respiratory effort Auscultation: + wheezes Cardiovascular: Rate/Rhythm: regular rate Gastrointestinal (Abdomen): Percussion/Palpation: abdomen soft Musculoskeletal: Head/Neck/Chest: normocephalic and head atraumatic Neurologic: PERRL, EOMI, accommodation nl, no face palsy, no dysarthria Psychiatric: Orientation: alert and cooperative Results & Data Results & Data ([facility]) Vital Signs (Past 12 Hours) Vital Signs Temp Pulse Resp BP Pulse Ox 02/13/20 11:07 68 18 90 02/13/20 08:19 37 C 69 16 164/70 H 91
--- NOTE | 2020-02-13 16:34 | Palliative Care Consultation ---
Date of Consultation February 13, 2020 Assessment & Plan (1) Palliative care encounter: 89 yo lady with acute on chronic renal failure admitted for second time in two months. She is being treated for sepsis, pneumonia and colitis. I spoke with her son, Ac, who is her power of bicycle courier. He tells me that Nikolas has a living will and has specifically said that she would not want dialysis if her kidneys failed. He understands that her time is short and his goal is for her to remain at home with comfort directed care until her dying time. He does have caregiver support in addition to family support for her care at home. He reports that she had been on hospice care but because she improved, she was discharged. His preference would not be to return to the hospital. He would like to resume hospice care at home. Given her Stage V CKD and comorbidities, she would be appropriate for hospice care. I discussed this with her bilingual patient support caseworker and they will arrange for hospice care at home when she is ready for discharge. (2) Acute renal failure (ARF): (3) Acute metabolic encephalopathy: (4) Pneumonia: (5) Colitis: (6) Sepsis: Acute renal failure type: unspecified Sepsis acute organ dysfunc tion status: with acute organ dysfunction Sepsis type: sepsis due to unspecified organism Severe sepsis acute organ dysfunction type: acute renal failure Severe sepsis shock status: without septic shock Qualified Code(s): A41.9 - Sepsis, unspecified organism; R65.20 - Severe sepsis without septic shock; N17.9 - Acute kidney failure, unspecified History of Present Illness Reason for Consultation: Plan of care Requesting Physician: Dr. Evert Stanton Attending Physician: Evert Stanton MD History of Present Illness 89 yo lady with dementia and acute on chronic renal failure. She was hospitalized in December with anemia and fever. At that time she had creatinine of 3.53 on discharge. She was discharged home on hospice per her family's wishes. Her son reports that she improved at home and was discharged from hospice. Unfortunately, she had decline with progressive renal failure, uremia and mental status change and was readmitted on 02/11. She is noted to have b/l pulmonary effusions with right ground glass infiltrate and creatinine at this time is 4.07 with BUN of 105. She is pleasantly confused and telling me about how she sent her to get groceries. She denies pain or dyspnea. She denies any particular worries or concerns. Allergies Allergy/AdvReac Type Severity Reaction Status Date / Time latex Allergy Mild Rash Verified 01/04/20 14:55 lovastatin AdvReac Mild "doesn't Verified 01/04/20 14:55 feel well" silicone AdvReac Mild Hives Verified 01/04/20 14:55 cephalexin [From Keflex] AdvReac HIVES Verified 01/04/20 14:55 Home Medications Home Medications Medication Instructions Recorded Confirmed Type insulin glargine 100 unit/mL 10 units SUBCUT QAM ml 12/30/18 02/11/20 History subcutaneous solution escitalopram oxalate 5 mg tablet 5 mg PO QAM 09/15/19 02/11/20 History cranberry extract-vitamin C [Azo 1 cap PO BID 12/26/19 02/11/20 History Cranberry Plus Vit C] metoprolol tartrate 25 mg PO PM 12/26/19 02/11/20 History metoprolol tartrate 50 mg PO QAM 12/26/19 02/11/20 History trazodone 50 mg PO HS 12/26/19 02/11/20 History ferrous sulfate 325 mg (65 mg 325 mg PO DAILY #90 tab 01/04/20 02/11/20 Rx iron) tablet amlodipine [Norvasc] 10 mg PO DAILY 02/11/20 02/11/20 History calcium carbonate-vitamin D2 1 tab PO DAILY 02/11/20 02/11/20 History [Calcium 500 with Vitamin D2] docusate sodium 200 mg PO QPM 02/11/20 02/11/20 History hydralazine 25 mg PO TID 02/11/20 02/11/20 History lidocaine 1 applic TOPICAL DAILY 02/11/20 02/11/20 History nystatin 1 applic TOPICAL BID 02/11/20 02/11/20 History Patient History Medical History (Updated 02/13/20 @ 16:31 by Tiff Mcgee MD) Acute worsening of stage 4 chronic kidney disease Adnexal cyst AMS (altered mental status) Anemia Chronic kidney disease, stage 4 (severe) CKD (chronic kidney disease), stage IV Dementia Diabetes Fever HTN (hypertension) Hypertension Pacemaker Vitamin D deficiency Vomiting Surgical History History of repair of right hip joint History of right hip fracture History of total left knee replacement (TKR) Hx of cardiac pacemaker Family History Other Family history unobtainable Social History Smoking Status: Unknown if ever smoked Second Hand Exposure: No; Hx Alcohol Use: No Hx Substance Use: No Preferred Language: [place] Communication Ability: Effective Foam Fabricator Required: No Beliefs That Will Affect Care: None marital status: / Current Living Situation: Alone Current Living Situation Comment: has caregivers current occupational status: retired Other Information That Helps Us Care for You: No Feels Safe at Home: Yes Safety Concerns: Feels Safe At This Time Assistive Devices: None Review of Systems Review of Systems: Unobtainable due to cognitive status [place] Symptom Assessment Scale Pain 0/3 Dyspnea 0/3 Nausea 0/3 Anxiety 0/3 Physical Exam Constitutional: no acute distress Eyes: EOM intact bilaterally Respiratory: normal respiratory effort; no labored breathing Cardiovascular: Rate/Rhythm: regular rate and regular rhythm Extremities: no edema Gastrointestinal (Abdomen): Percussion/Palpation: abdomen nontender Skin: no rashes, warm and dry Neurologic: awake and + confused Psychiatric: Orientation: oriented to person Results & Data ([facility]) Vital Signs (Past 12 Hours) Vital Signs Temp Pulse Resp BP Pulse Ox 02/13/20 11:07 68 18 90 02/13/20 08:19 98.6 F 69 16 164/70 H 91 PG Care Time/CCT Total # of Minutes Spent Total Time Spent with Patient: Total time spent is greater than 50% in coordination of care (as documented) at patient's floor/unit and/or counseling patient: 70 minutes with more than 50% of time spent on discussion of goals of care, prognosis and family support. Coding Level of Care Code 99327 Inpt Consult Level 4 Diagnoses Palliative care encounter Z51.5 Acute renal failure (ARF) N17.9 Acute metabolic encephalopathy G93.41 Pneumonia J18.9 Colitis K52.9 Sepsis A41.9; R65.20; N17.9 Acute renal failure type: unspecified Sepsis acute organ dysfunction status: with acute organ dysfunction Sepsis type: sepsis due to unspecified organism Severe sepsis acute organ dysfunction type: acute renal failure Severe sepsis shock status: without septic shock Time Spent (min) 70 Comment [id number]
[2020-02-13] MEDS: METOPROLOL TARTRATE 25 MG TAB PO SCH (21:05)
[2020-02-14 07:10] LABS: Creatinine Clr Calc Pharmacy 8.9 ml/min; Est GFR (African American) 9.5; Est GFR (Non-African American) 8.2
[2020-02-14] MEDS: PIPERACILLIN/TAZOBACTAM 3.375 GM in DEXTROSE 5% 100 ML IV SCH (08:27)
[2020-02-14] MEDS: hydrALAZINE HCL 25 MG TAB PO SCH (08:32)
[2020-02-14] MEDS: FERROUS SULFATE 325 MG TAB PO SCH (08:32)
[2020-02-14] MEDS: METOPROLOL TARTRATE 50 MG TAB PO SCH (08:32)
[2020-02-14] MEDS: SODIUM BICARBONATE 650 MG TAB PO SCH (08:33)
[2020-02-14] MEDS: NYSTATIN CR 15 GM TUBE EXT SCH (08:33)
[2020-02-14] MEDS: ESCITALOPRAM OXALATE 10 MG TAB PO SCH (08:33)
[2020-02-14] MEDS: LIDOCAINE HCL 5% OINT 30 GM TUBE TOP SCH (08:34)
--- NOTE | 2020-02-14 10:25 | Discharge Summary ---
Date of Service February 14, 2020 Admission HPI Per Admitting Provider HISTORY OF PRESENT ILLNESS: This is an 89-year-old female with past medical history significant for type 2 diabetes, insulin-dependent, chronic kidney disease stage IV, hypertension, hyperlipidemia, vascular dementia, iron deficiency anemia, history of cardiac pacemaker, who lives at home with 02/11 care was brought in for altered mental status. The patient was recently in the hospital from 12/26/2019 to 12/30/2019, at that time she had anemia with blood transfusion and also at that time she has fever, bacteremia rule out and COVID was negative. She was treated with antibiotics, initially Zosyn and then transferred to [facility]. She was in hospice before, but she was doing good, hospice was revoked but on last admission palliative care was consulted and family was planning to go back on hospice. She was discharged to home with 02/11 care in home and she also followed with nephrology in 02/08/2020 and as per notes ,family decided not for dialysis in case renal function worsens. As per family, she walks with a walker at home. She is afebrile.On Regular diet. She is also oriented to name and sometimes she knows that she is in the house. She can recognize her family. Son is in the room and he helped with the history. Today she seem to have some weakness in left side, able to not ambulate properly and was sleeping whole day, which prompted her to bring to the hospital. As per the ER there was q question of aspiration but the family denies any aspiration at this time. In the COVID-19 PCR was negative. Influenza was negative. She had a mild temperature spike of 37.9, white count of 12.5 and no lymphopenia is seen. Venous blood gases are okay. Potassium was 5.9. CO2 was 18 and creatinine was 4.3, baseline is around 3. Lactate was normal at 1.6. Troponin was 0.07. Procalcitonin 0.84. Urinalysis was negative. As per Son no complains of pain, No cough, No nausea/vomiting or diarrhea. Patient drowsy not answering any questions. Admission Exam Per Admitting Provider P/E Ge : Lethargic. 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 Principal Diagnosis Comfort care (Comfort Measures only) Acute metabolic encephalopathy due to Uremia from Acute Renal Failure, Underlying Dementia and pneumonia Pneumonia 2/2 possible aspiration Uremia Hyperkalemia Type 2 diabetes mellitus with watermaster current use of insulin Hypertension Discharge Exam CONSTITUTIONAL: WNWD, vitals as above, generally well-appearing EYES: normal conjunctivae, no scleral icterus ENT: external ear and nose normal, MMM RESPIRATORY: clear to auscultation bilaterally, no crackles, rales or wheezes, normal respiratory effort. Some audible upper airway wheezing was heard with expiration. Patient did not appear to have any labored breathing. CARDIOVASCULAR: regular rate and rhythm, S1 and 2 heard without murmurs, gallops or rubs, no JVD, no peripheral edema GASTROINTESTINAL: soft, nontender, nondistended. MUSCULOSKELETAL: generalized weakness, no gross focal deficits. SKIN: warm and dry NEUROLOGIC: CN 2-12 grossly intact, normal cognition, normal speech, no gross focal deficits. PSYCHIATRIC: alert cooperative and oriented to person and place. Discharge Data Allergies Allergy/AdvReac Type Severity Reaction Status Date / Time latex Allergy Mild Rash Verified 01/04/20 14:55 lovastatin AdvReac Mild "doesn't Verified 01/04/20 14:55 feel well" silicone AdvReac Mild Hives Verified 01/04/20 14:55 cephalexin [From Keflex] AdvReac HIVES Verified 01/04/20 14:55 Consultations 02/11/20 21:19 ED Decision to Admit Stat 02/11/20 23:56 Consult Case Management - Discharge Planning Routine 02/12/20 06:51 Consult Palliative Care Routine 02/12/20 08:00 Consult Nephrology Routine Ordered Studies 02/11/20 19:30 CT abd pelvis wo con Urgent 02/11/20 22:41 CT chest wo con Urgent CT head/brain wo con Urgent Hospital Course (1) Comfort measures only status: (2) Acute metabolic encephalopathy: (3) Acute renal failure (ARF): (4) Uremia: (5) Hyperkalemia: (6) Anemia in chronic kidney disease: (7) Hypertension: (8) Adnexal cyst: The patient is an 89-year-old female with a history of stage IV chronic kidney disease and vascular dementia who lives at home with 02/11 care was brought in for altered mental status. She was in hospice before but was doing well, and hospice was revoked in the past. Her COVID-19 PCR was checked and negative. An influenza was negative her UA was unremarkable. A chest x-ray rev ealed possible bibasilar infiltrates versus possible aspiration pneumonitis. She was empirically started on intravenous Zosyn and vancomycin which was continued after admission to the hospitalist service. She was diagnosed with acute metabolic encephalopathy secondary to uremia from acute renal failure as well as underlying dementia. Nephrology was consulted and recommended palliative consultation as goals of care were to provide conservative medical management without dialysis. She was given some intravenous fluids but this was stopped once comfort care measures were instituted. She was given 1 dose of Epogen 20,000 units while hospitalized. The hospitalist continue to have discussions with the family and Dr. Mcgee from palliative care was able to also touch base on February 12. She discussed goals of care with her son Ac, power of stunner and shackler, and his preference would be for her to not return to the hospital. She was set up to restart with home hospice given her CKD progression and comorbidities. On day of discharge she was mentating at baseline and reporting that she tolerated PO. She was comfortable reporting no symptoms and appeared comfortable on exam. I discussed the care plan with her daughter and DIL at the bedside and went through all the medications with them. They assured me they had all her medications and the appropriate DME equipment at the house. [facility] will be in contact. Will complete short course of Augmentin for aspiration pneumonia. Followup with PCP as desired based on goals. Patient was discharged in guarded conditions on comfort care measures status. Total Time Total Time Spent Total Time Spent (In Minutes): 60 Total Time Includes: Examination of the Patient, Discharge Planning, Medication Reconciliation and Communication With Other Providers Discharge Plan Discharge Items Patient Disposition: Hospice - Home Reason For Visit: AMS Discharge Diagnosis: Comfort care (Comfort Measures only) Acute metabolic encephalopathy due to Uremia from Acute Renal Failure, Underlying Dementia and pneumonia Pneumonia 2/2 possible aspiration Uremia Hyperkalemia Type 2 diabetes mellitus with watermaster current use of insulin Hypertension Activity: Resume your previous activity Weightbearing: Full weightbearing Non-emergency contact: Primary Care Provider Call non-emergency contact if: you have any medication questions Follow-up/Referrals: Court Aguirre, [Primary Care Provider] - Diet: Carb Consistent or DM2 and Dialysis Renal Diet Comment: minced, moist texture Addtl Attending Provider Instructions: discharge to home with with [facility] services on 02/14/2020 Please take all medications as instructed on discharge list below. You have been given additional antibiotics to complete the course for pneumonia. Iron supplementation has been stopped to minimize pill burden. Please consider follow-up with your primary care provider (PCP) within one week of discharge to ensure you are still doing well after this hospital stay. There are many issues we are not addressing or following 2/2 the patient's treatment goal of comfort care status (eg: labwork followup, imaging followup, etc). You may want to review this with her PCP at a one-time followup. It was a pleasure taking care of you! Please call if you have any questions or problems. You can reach a [facility] hospitalist on duty at [facility] 24 hours a day by calling [phone]. Take care of yourself. Zulma Gutiérrez, [facility] Pending Studies at Discharge: No Stand-Alone Forms: My [facility] Medications and DC Order Prescriptions: New amoxicillin-pot clavulanate [Augmentin] 500-125 mg tablet 1 tab PO Q24H Qty: 4 RF: 0 Continued escitalopram oxalate 5 mg tablet 5 mg PO QAM RF: 0 Lantus U-100 Insulin 100 unit/mL solution 10 units SUBCUT QAM RF: 0 trazodone 50 mg Tablet 50 mg PO HS RF: 0 metoprolol tartrate 50 mg Tablet 25 mg PO PM RF: 0 metoprolol tartrate 50 mg Tablet 50 mg PO QAM RF: 0 cranberry extract-vitamin C [Azo Cranberry Plus Vit C] 250-60 mg Capsule 1 cap PO BID RF: 0 lidocaine 5 % Ointment 1 applic TOPICAL DAILY RF: 0 amlodipine [Norvasc] 5 mg tablet 10 mg PO DAILY RF: 0 Calcium 500 with Vitamin D2 500-125 mg-unit Tablet 1 tab PO DAILY RF: 0 hydralazine 25 mg Tablet 25 mg PO TID RF: 0 nystatin 100,000 unit/gram Cream 1 applic TOPICAL BID RF: 0 docusate sodium 100 mg Capsule 200 mg PO QPM RF: 0 Discontinued ferrous sulfate 325 mg (65 mg iron) tablet 325 mg PO DAILY Qty: 90 RF: 3 Discharge Orders: Discharge Order (Routine); Ordered 02/14/20 Ordered By: Zulma Gutiérrez Admission Data Admit Date/Time: 02/11/20 22:34 Attending Provider: Zulma Gutiérrez Admit Provider: Alexander Morgan Primary Care Provider: Court Aguirre Other Providers: Alexander Morgan ; Tiff Mcgee ; Terell Worley ; [facility] ,[facility]
== END 2020-02-14 12:36 | disposition hospice, home (50) | DRG 682 ==
LOC: ED 19:01 → 2E 22:34 → SUATTDRO 22:34 → 2E 23:11 → 3E 02-12 11:59